=== PATIENT | male | born 1950 | race Caucasian/White ===

== ENCOUNTER 2022-08-04 13:01 | Inpatient (IN) ==
--- NOTE | 2022-08-04 13:29 | Emergency Department Note ---
History of Present Illness General Chief complaint: Fall Stated complaint: FALLS, DISORIENTED Time Seen by Provider: 08/04/22 13:11 History of Present Illness Provider complaint: Fall Onset (ago): unknown 72-year-old male presents emergency department after being found down. Per EMS and nursing staff the patient was found down on the ground. He is unsure when a nd if he fell. Patient appears very confused. Home Medications Medication Instructions Recorded Confirmed Type No Known Home Medications 08/04/22 08/04/22 History Allergies Allergy/AdvReac Type Severity Reaction Status Date / Time No Known Allergies Allergy Verified 08/04/22 15:02 Past Med/Surg History Medical History HTN (hypertension) No pertinent family history Surgical History No pertinent past surgical history Social History Smoking Status: Current every day smoker Tobacco Type: Cigarettes Preferred Language: Maltese Feels Safe at Home: Yes Review of Systems Unobtainable due to cognitive status Physical Exam Vital Signs Vital Signs - 24 hr 08/04/22 12:50 08/04/22 13:15 08/04/22 13:15 Temperature 36.2 C L 36.2 C L Temperature Source Rectal Rectal Pulse Rate 74 77 Pulse Rate [Apical] Pulse Rhythm [Apical] Pulse Strength [Apical] Respiratory Rate 18 16 Respiratory Depth Blood Pressure 210/113 H Blood Pressure [Left Arm] Blood Pressure Mean 145 Blood Pressure Mean [Left Arm] Pulse Oximetry 97 97 Oxygen Delivery Method Room Air Sepsis Recent Fever Within 48 Hours No Sepsis New/Unexplained Change in Mental Status No Sepsis Action Taken by Nursing No Action Required 08/04/22 14:45 08/04/22 15:12 Temperature Temperature Source Pulse Rate Pulse Rate [Apical] 90 112 H Pulse Rhythm [Apical] Irregular Pulse Strength [Apical] Normal Respiratory Rate 16 21 Respiratory Depth Normal Blood Pressure Blood Pressure [Left Arm] 209/107 H 184/100 H Blood Pressure Mean Blood Pressure Mean [Left Arm] 141 128 Pulse Oximetry 93 94 Oxygen Delivery Method Room Air Sepsis Recent Fever Within 48 Hours Sepsis New/Unexplained Change in Mental Status Sepsis Action Taken by Nursing Physical Exam GENERAL: Patient is disheveled dirty and foul-smelling. HENT: Exam performed. - Head: Normocephalic and atraumatic. - Right Ear: External ear normal. No mastoid tenderness. - Left Ear: External ear normal. No mastoid tenderness. - Mouth/Throat: The oropharynx is clear and moist. No trismus in the jaw. No dental abscesses or uvula swelling. No oropharyngeal exudate or tonsillar abscesses. EYES: Conjunctivae and EOM are normal. Pupils are equal, round, and reactive to light. Right eye exhibits no discharge. Left eye exhibits no discharge. No scleral icterus. CV: Normal rate, regular rhythm, normal heart sounds and intact distal pulses. There is no peripheral edema. Palpable radial pulses bue. PULM/CHEST: Rhonchi bilaterally. - Chest Wall: He exhibits no tenderness. ABD: The abdomen is soft. : Several ulcerations over his genitalia. MUSC/SKEL: Pelvis stable. NEURO: GCS eye subscore is 4. GCS verbal subscore is 4. GCS motor subscore is 6. SKIN: Patient is 30. Course Course 1311: The patient was evaluated in room C3. A complete history and physical exam was performed Cardiac monitoring: An order was placed for continuous cardiac monitoring. The monitor shows a rate of 90 with sinus rhythm 1418: Family is now at bedside. They state that the patient fell at 1 AM and 7 AM and has been having difficulty walking. They state he has a history of AL and CABG in [place]. They state he is not taking any of his medications for the last 4 years. 1523: Vital signs stable. Labs are within normal limits with exception of leukocytosis of 15.59. Troponin 36.8. Imaging shows no acute traumatic injury. [facility] his elevated troponin and weakness Administered Medications Discontinued Medications Ioversol (Optiray 350 100ml) 85 ml IV ONCE ONE Stop: 08/04/22 14:28 Last Admin: 08/04/22 14:27 Dose: 85 ml Documented By: PARDEEP Medical Decision Making Laboratory Data Result diagrams: 08/04/22 13:32 08/04/22 13:32 Lab Results 08/04/22 08/04/22 08/04/22 Range/Units 13:32 13:32 13:32 WBC 15.59 H (4.8-10.8) K/ul RBC 4.75 (4.63-6.08) M/uL Hgb 15.0 (14.0-18.0) g/dl POC Hgb (14.0-18.0) g/dl Hct 43.9 (40.1-51.0) % POC Hct (42-52) % MCV 92.4 (80.0-100.0) fL MCH 31.6 (25.0-34.0) pg MCHC 34.2 (32.0-36.0) g/dL RDW Std Deviation 45.7 (36.4-46.3) fL RDW Coeff of Jeanette 13.4 (11.5-14.5) % Plt Count 306 (130-400) K/uL MPV 10.5 (9.4-12.4) fL Immature Gran % (Auto) 0.6 % Neut % (Auto) 76.1 % Lymph % (Auto) 14.8 % [place] % (Auto) 8.0 % Eos % (Auto) 0.1 % Baso % (Auto) 0.4 % Neut # (Auto) 11.86 H (1.4-6.5) K/uL Lymph # (Auto) 2.30 (1.2-3.4) K/uL [place] # (Auto) 1.24 H (0.24-0.82) K/uL Eos # (Auto) 0.02 (0-0.50) K/uL Baso # (Auto) 0.07 (0-0.2) K/uL Immature Gran # (Auto) 0.10 H (0.00-0.02) K/uL POC Sodium (135-144) mmol/L Sodium 141 (136-145) mmol/L POC Potassium (3.3-5.0) mmol/L Potassium 3.8 (3.5-5.1) mmol/L POC Chloride (101-112) mmol/L Chloride 109 H (98-107) mmol/L Carbon Dioxide 21 (21-32) mmol/L POC Total CO2 (24-31) mmol/L Anion Gap 11 (3-11) POC Anion Gap (16-25) mmol/L POC BUN (7-18) mg/dl BUN 21 (6-23) mg/dl Creatinine 0.83 (0.6-1.4) mg/dl POC Creatinine (0.6-1.3) mg/dl Est Cr Clr Drug Dosing 79.0 ml/min Est GFR ( Amer) 102.6 ml/min Est GFR (Non-Af Amer) 88.5 ml/min BUN/Creatinine Ratio 25.3 H (10-20) Glucose 91 (70-99(Fasting)) mg/dl POC Glucose (other) (70-99) mg/dl Lactate 1.8 (0.4-2.0) mmol/L Calcium 9.3 (8.5-10.1) mg/dl POC Ioniz Calcium Mariela (1.12-1.32) mmol/l Magnesium 2.1 (1.7-2.4) mg/dl Total Bilirubin 1.0 (0.2-1.0) mg/dl Direct Bilirubin 0.1 (0-0.2) mg/dl AST 15 (13-39) U/L ALT 7 (7-52) U/L Alkaline Phosphatase 70 (34-104) U/L Total Creatine Kinase 374 H (30-223) U/L Troponin I High Sens 36.8 H (0-20) pg/ml Total Protein 7.2 (6.0-8.3) gm/dl Albumin 4.4 (3.4-5.0) gm/dl Procalcitonin (0-0.5) ng/ml Urine Color Urine Appearance (Clear) Urine pH (4.5-7.5) Ur Specific Burg[place] (1.000-1.030) Urine Protein (Negative) Urine Glucose (UA) (Negative) Urine Ketones (Negative) Urine Blood (Negative) Urine Nitrite (Negative) Urine Bilirubin (Negative) Urine Urobilinogen (Negative) Ur Leukocyte Esterase (Negative) SARS-CoV-2, RNA, NAAT (NEGATIVE) 08/04/22 08/04/22 08/04/22 Range/Units 13:32 13:32 13:41 WBC (4.8-10.8) K/ul RBC (4.63-6.08) M/uL Hgb (14.0-18.0) g/dl POC Hgb 15.6 (14.0-18.0) g/dl Hct (40.1-51.0) % POC Hct 46 (42-52) % MCV (80.0-100.0) fL MCH (25.0-34.0) pg MCHC (32.0-36.0) g/dL RDW Std Deviation (36.4-46.3) fL RDW Coeff of Jeanette (11.5-14.5) % Plt Count (130-400) K/uL MPV (9.4-12.4) fL Immature Gran % (Auto) % Neut % (Auto) % Lymph % (Auto) % [place] % (Auto) % Eos % (Auto) % Baso % (Auto) % Neut # (Auto) (1.4-6.5) K/uL Lymph # (Auto) (1.2-3.4) K/uL [place] # (Auto) (0.24-0.82) K/uL Eos # (Auto) (0-0.50) K/uL Baso # (Auto) (0-0.2) K/uL Immature Gran # (Auto) (0.00-0.02) K/uL POC Sodium 142 (135-144) mmol/L Sodium (136-145) mmol/L POC Potassium 3.7 (3.3-5.0) mmol/L Potassium (3.5-5.1) mmol/L POC Chloride 110 (101-112) mmol/L Chloride (98-107) mmol/L Carbon Dioxide (21-32) mmol/L POC Total CO2 21 L (24-31) mmol/L Anion Gap (3-11) POC Anion Gap 16.0 (16-25) mmol/L POC BUN 23 H (7-18) mg/dl BUN (6-23) mg/dl Creatinine (0.6-1.4) mg/dl POC Creatinine 0.8 (0.6-1.3) mg/dl Est Cr Clr Drug Dosing ml/min Est GFR ( Amer) ml/min Est GFR (Non-Af Amer) ml/min BUN/Creatinine Ratio (10-20) Glucose (70-99(Fasting)) mg/dl POC Glucose (other) 95 (70-99) mg/dl Lactate (0.4-2.0) mmol/L Calcium (8.5-10.1) mg/dl POC Ioniz Calcium Mariela 1.13 (1.12-1.32) mmol/l Magnesium (1.7-2.4) mg/dl Total Bilirubin (0.2-1.0) mg/dl Direct Bilirubin (0-0.2) mg/dl AST (13-39) U/L ALT (7-52) U/L Alkaline Phosphatase (34-104) U/L Total Creatine Kinase (30-223) U/L Troponin I High Sens (0-20) pg/ml Total Protein (6.0-8.3) gm/dl Albumin (3.4-5.0) gm/dl Procalcitonin < 0.05 (0-0.5) ng/ml Urine Color Yellow Urine Appearance Clear (Clear) Urine pH 5.0 (4.5-7.5) Ur Specific [place] 1.022 (1.000-1.030) Urine Protein Negative (Negative) Urine Glucose (UA) Negative (Negative) Urine Ketones 1+ H (Negative) Urine Blood Negative (Negative) Urine Nitrite Negative (Negative) Urine Bilirubin Negative (Negative) Urine Urobilinogen Negative (Negative) Ur Leukocyte Esterase Negative (Negative) SARS-CoV-2, RNA, NAAT (NEGATIVE) 08/04/22 Range/Units 15:07 WBC (4.8-10.8) K/ul RBC (4.63-6.08) M/uL Hgb (14.0-18.0) g/dl POC Hgb (14.0-18.0) g/dl Hct (40.1-51.0) % POC Hct (42-52) % MCV (80.0-100.0) fL MCH (25.0-34.0) pg MCHC (32.0-36.0) g/dL RDW Std Deviation (36.4-46.3) fL RDW Coeff of Jeanette (11.5-14.5) % Plt Count (130-400) K/uL MPV (9.4-12.4) fL Immature Gran % (Auto) % Neut % (Auto) % Lymph % (Auto) % [place] % (Auto) % Eos % (Auto) % Baso % (Auto) % Neut # (Auto) (1.4-6.5) K/uL Lymph # (Auto) (1.2-3.4) K/uL [place] # (Auto) (0.24-0.82) K/uL Eos # (Auto) (0-0.50) K/uL Baso # (Auto) (0-0.2) K/uL Immature Gran # (Auto) (0.00-0.02) K/uL POC Sodium (135-144) mmol/L Sodium (136-145) mmol/L POC Potassium (3.3-5.0) mmol/L Potassium (3.5-5.1) mmol/L POC Chloride (101-112) mmol/L Chloride (98-107) mmol/L Carbon Dioxide (21-32) mmol/L POC Total CO2 (24-31) mmol/L Anion Gap (3-11) POC Anion Gap (16-25) mmol/L POC BUN (7-18) mg/dl BUN (6-23) mg/dl Creatinine (0.6-1.4) mg/dl POC Creatinine (0.6-1.3) mg/dl Est Cr Clr Drug Dosing ml/min Est GFR ( Amer) ml/min Est GFR (Non-Af Amer) ml/min BUN/Creatinine Ratio (10-20) Glucose (70-99(Fasting)) mg/dl POC Glucose (other) (70-99) mg/dl Lactate (0.4-2.0) mmol/L Calcium (8.5-10.1) mg/dl POC Ioniz Calcium Mariela (1.12-1.32) mmol/l Magnesium (1.7-2.4) mg/dl Total Bilirubin (0.2-1.0) mg/dl Direct Bilirubin (0-0.2) mg/dl AST (13-39) U/L ALT (7-52) U/L Alkaline Phosphatase (34-104) U/L Total Creatine Kinase (30-223) U/L Troponin I High Sens (0-20) pg/ml Total Protein (6.0-8.3) gm/dl Albumin (3.4-5.0) gm/dl Procalcitonin (0-0.5) ng/ml Urine Color Urine Appearance (Clear) Urine pH (4.5-7.5) Ur Specific [place] (1.000-1.030) Urine Protein (Negative) Urine Glucose (UA) (Negative) Urine Ketones (Negative) Urine Blood (Negative) Urine Nitrite (Negative) Urine Bilirubin (Negative) Urine Urobilinogen (Negative) Ur Leukocyte Esterase (Negative) SARS-CoV-2, RNA, NAAT NEGATIVE (NEGATIVE) Imaging Data Radiologist's Impression: Abdomen/Pelvis CT 08/04/22 13:15 CT SCAN OF THE ABDOMEN AND PELVIS WITH IV CONTRAST CLINICAL HISTORY: Found down. COMPARISON STUDY: Pelvic radiographs performed the same day 08/04/2022. TECHNIQUE: Following the IV administration of 85 cc of Optiray 350, CT scan of the abdomen and pelvis is performed from the lung bases to the proximal femora. Images are reviewed in the axial, sagittal, and coronal planes. IV contrast was administered without complication. A dose lowering technique was utilized adhering to the principles of ALARA. The examination is compromised by motion artifact. FINDINGS: Lung bases: The patient is status post midline sternotomy. The heart is enlarged and without pericardial effusion. The coronary arteries and ends a calcified. Emphysematous change is suspected. There is an indeterminate 1.8 cm nodular opacity at the left lung base seen on image #4. No airspace consolidation or pleural effusion is identified. There is no basilar pneumothorax. There is a small to moderate hiatal hernia. Liver: The contrast-enhanced liver is normal in size, contour, and attenuation. There is no intrahepatic biliary ductal dilatation. The hepatic veins and portal veins are patent. A 3.0 cm left lobe hepatic lesion on image #10 shows peripheral discontinuous nodular enhancement and although incompletely characterized is typical for a benign hemangioma. Gallbladder: Unremarkable. Spleen: Normal in size and attenuation. Pancreas: Unremarkable. Adrenal glands: Bilateral low-attenuation adrenal nodules measure up to 3.0 cm. These likely represent adenomas but cannot be definitely characterized due to the presence of IV contrast. Kidneys: The contrast enhanced kidneys are normal in size and without hydronephrosis. The kidneys enhance symmetrically. Abdominal vasculature: There is advanced atherosclerotic calcification of the abdominal aorta. A bilobed infrarenal abdominal aortic aneurysm measures up to 3.6 x 4.0 cm (AP x transverse). There is high-grade stenosis of the right common iliac artery seen on image #235. There is focal high-grade stenosis of the left common iliac artery seen on image #250. There is high-grade stenosis at the origin of the common hepatic artery seen on image #88. There is moderate stenosis of the celiac trunk. Bowel: There is moderate colonic diverticulosis without CT evidence of acute diverticulitis. [id number] fecal retention is seen throughout the colon. The appendix is well-visualized and normal. Peritoneum: There is no intraperitoneal free air or abdominal ascites. There is a fat-containing umbilical hernia. Lymphadenopathy: None. Pelvic viscera: The prostate gland is mildly enlarged and heterogeneous. The bladder wall is thickened and trabeculated indicating chronic outlet obstruction. There are small bilateral fat-containing inguinal hernias, left larger than right. Skeletal structures: The skeletal structures are osteopenic. There is moderate lumbosacral spondylosis and mild scoliosis. The lumbosacral spine, bony pelvis, and proximal femora appear intact. No lytic or blastic lesions are seen. IMPRESSION: 1. There is no evidence of solid organ injury in the abdomen or pelvis. 2. There is an indeterminant 1.8 cm nodular opacity at the left lung base. Although this could be on an inflammatory basis, a follow-up chest CT in 1-2 months time is recommended for reassessment as a neoplasm could appear similar. 3. Cardiomegaly and suspect emphysema. 4. Moderate colonic diverticulosis without CT evidence of acute diverticulitis. 5. A bilobed infrarenal abdominal aortic aneurysm measures 3.6 x 4.0 cm. 6. There are foci of high-grade stenosis involving both common iliac arteries 7. Additional findings as above. ACT 112: Positive. There are findings on this exam that require communication between the performing entity and the patient following Patient Test Result Information Act ([place] Act 112) guidelines. Electronically signed by: Levon Padilla M.D. 08/04/2022 2:59 PM Chest X-Ray 08/04/22 13:15 SINGLE VIEW CHEST CLINICAL HISTORY: Fall. FINDINGS: An AP, portable, upright chest radiograph is compared to study dated 11/16/2011. The examination is degraded by portable technique and patient rotation. The patient is status post midline sternotomy. The heart is enlarged noting atherosclerotic calcification of the thoracic aorta. There is mild pulmonary vascular congestion. Chronic interstitial thickening similar to previous. Scarring/atelectasis is noted the lung bases. The lungs and pleural spaces are otherwise clear. No pneumothorax is seen. The skeletal structures are osteopenic. The bony thorax is grossly intact. IMPRESSION: 1. Cardiomegaly with mild pulmonary vascular congestion. 2. No airspace consolidation or large pleural effusion is identified. ACT 112: Negative or not required by law. Electronically signed by: Levon Padilla M.D. 08/04/2022 2:[address] 08/04/22 13:16 CT SCAN OF THE CERVICAL SPINE CLINICAL HISTORY: Found down. COMPARISON STUDY: No priors. TECHNIQUE: CT scan of the cervical spine is performed from the skull base to the upper thoracic spine. Images are reviewed in the axial, sagittal, and coronal planes. IV contrast was not administered for this examination. A dose lowering technique was utilized adhering to the principles of ALARA. FINDINGS: Skeletal structures: The skeletal structures are osteopenic. There is no evidence of fracture or subluxation involving the cervical spine. Vertebral body height is maintained. There is minimal anterolisthesis at C7-T1 and T1-T2. Alignment otherwise maintained. There is straightening of the cervical lordosis. Anterior osteophytes are seen throughout. The odontoid process and lateral masses are intact. The atlantoaxial articulation is preserved noting advanced productive degenerative changes. The spinous processes appear intact. There is moderate to advanced multilevel cervical spondylosis. Uncovertebral and facet arthropathy contribute to neural foraminal narrowing at most levels. Intervertebral discs: There is moderate to severe disc space narrowing at all cervical levels between C3-C4 and C6-C7. Central canal: Posterior disc osteophyte complexes are seen at all cervical levels between C3-C4 and C6-C7. This likely contributes to multilevel acquired compromise of the central canal. Soft tissues: The prevertebral and paraspinous soft tissues are within normal limits. There is atherosclerotic calcification of the carotid bulbs. Calvarium: The visualized calvarium at the skull base appears intact. Brain parenchyma: Partially visualized brain parenchyma at the skull base is within normal limits. Sinuses and mastoids: The visualized paranasal sinuses are clear. The mastoid air cells are well pneumatized. Lung apices: Clear as visualized. IMPRESSION: 1. There is no evidence of fracture or subluxation involving the cervical spine. 2. Osteopenia and spondylotic change as above. ACT 112: Negative or not required by law. Electronically signed by: Levon Padilla M.D. 08/04/2022 2:[address] 08/04/22 13:16 CT SCAN OF THE BRAIN WITHOUT IV CONTRAST CLINICAL HISTORY: Found down. COMPARISON STUDY: No priors. TECHNIQUE: Unenhanced axial CT scan of the brain is performed from the vertex to the skull base. A dose lowering technique was utilized adhering to the principles of ALARA. CT DOSE: 1219.08 mGy.cm FINDINGS: Brain parenchyma: There is age-related involutional change noting moderate subcortical and periventricular microangiopathic disease. There is no hemorrhage, mass effect, or evidence of acute territorial ischemia by CT criteria. Chronic lacunar infarcts are noted in the right caudate head, the left basal ganglia, the left colby radiata, and both thalami. Prieto-white matter differentiation is preserved. No extra-axial fluid collection is seen. Ventricles, sulci, cisterns: Prominent secondary to involutional change. Intracranial vasculature: There is atherosclerotic calcification of the cavernous carotid and vertebral arteries. Calvarium: Unremarkable. Sinuses and mastoids: The visualized paranasal sinuses are clear. The mastoid air cells are well pneumatized. Orbits: The bony orbits are grossly intact. IMPRESSION: There is no hemorrhage, mass effect, or evidence of acute territorial ischemia by CT criteria. ACT 112: Negative or not required by law. Electronically signed by: Levon Padilla M.D. 08/04/2022 2:42 PM Pelvis X-Ray 08/04/22 13:16 SINGLE VIEW PELVIS CLINICAL HISTORY: Fall. FINDINGS: 2 AP, portable, supine pelvic radiograph is obtained. No prior studies are available for comparison at the time of dictation. The skeletal structures are osteopenic. There is no radiographic evidence of acute fracture involving the hips or bony pelvis. Moderate degenerative joint space narrowing is seen in the hips. There is mild degenerative sclerosis of the sacroiliac joints. Lumbosacral spondylosis is partially visualized. There is atherosclerotic calcification of the iliac and femoral arteries. No bowel obstruction is seen. IMPRESSION: No acute bony abnormality is identified. Electronically signed by: Levon Padilla M.D. 08/04/2022 3:00 PM ECG Data Indication: + weakness Rate (beats per minute): 91 Rhythm: + atrial fibrillation ECG ST segments: + Normal ST segments Additional Comments: Baseline artifact. [facility] [place] Narrative 1311: The patient was evaluated in room C3. A complete history and physical exam was performed Cardiac monitoring: An order was placed for continuous cardiac monitoring. The monitor shows a rate of 90 with sinus rhythm 1418: Family is now at bedside. They state that the patient fell at 1 AM and 7 AM and has been having difficulty walking. They state he has a history of AL and CABG in [place]. They state he is not taking any of his medications for the last 4 years. 1523: Vital signs stable. Labs are within normal limits with exception of leukocytosis of 15.59. Troponin 36.8. Imaging shows no acute traumatic injury. [facility] his elevated troponin and weakness Impression & Plan Recurrent falls, Elevated troponin Discharge Plan Visit Data Chief Complaint: Fall Stated Complaint: FALLS, DISORIENTED ED Provider: Puneet Alegre Discharge Problem: Recurrent falls, Elevated troponin Patient Disposition: Admitted As Inpatient Forms Stand Alone Forms: [facility] Prescriptions Prescriptions: No Action No Known Home Medications Referrals Referrals: [place] [facility] [Non-Staff] -
[2022-08-04 13:48] LABS: Basophils # (auto) 0.07 K/uL (0-0.2); Basophils % (auto) 0.4 %; Eosinophils # (auto) 0.02 K/uL (0-0.50); Eosinophils % (auto) 0.1 %; Hematocrit (blood only) 43.9 % (40.1-51.0); Immature Granulocytes % (auto) 0.6 %; Lymphocytes % (auto) 14.8 %; Mean Corpuscular Hemoglobin 31.6 pg (25.0-34.0); Mean Corpuscular Hgb Conc 34.2 g/dL (32.0-36.0); Mean Corpuscular Volume 92.4 fL (80.0-100.0); Mean Platelet Volume 10.5 fL (9.4-12.4); Monocytes # (auto) 1.24 K/uL (0.24-0.82); Neutrophils # (auto) 11.86 K/uL (1.4-6.5); Neutrophils % (auto) 76.1 %; Platelet Count 306 K/uL (130-400); RDW Coefficient of Variation 13.4 % (11.5-14.5); RDW Standard Deviation 45.7 fL (36.4-46.3); Red Blood Count 4.75 M/uL (4.63-6.08); White Blood Count 15.59 K/ul (4.8-10.8)
[2022-08-04 13:53] LABS: Appearance Urine Clear (Clear); Bilirubin Urine Negative (Negative); Blood Urine Negative (Negative); Color Urine Yellow; Glucose Urine UA Negative (Negative); Ketones Urine 1+ (Negative); Leukocyte Esterase Urine Negative (Negative); Nitrite Urine Negative (Negative); Protein Urine Negative (Negative); Specific Gravity Urine 1.022 (1.000-1.030); Urobilinogen Urine Negative (Negative)
[2022-08-04 13:59] LABS: iSTAT Creatinine 0.8 mg/dl (0.6-1.3); iSTAT Hemoglobin 15.6 g/dl (14.0-18.0); iSTAT Ionized Calcium 1.13 mmol/l (1.12-1.32); iSTAT Potassium 3.7 mmol/L (3.3-5.0)
[2022-08-04 14:09] LABS: Albumin Level 4.4 gm/dl (3.4-5.0); BUN Creatinine Ratio 25.3 (10-20); Bilirubin Direct 0.1 mg/dl (0-0.2); Calcium 9.3 mg/dl (8.5-10.1); Est GFR (African American) 102.6 ml/min; Est GFR (Non-African American) 88.5 ml/min; Magnesium 2.1 mg/dl (1.7-2.4); Potassium 3.8 mmol/L (3.5-5.1); Total Protein 7.2 gm/dl (6.0-8.3)
--- NOTE | 2022-08-04 14:10 | XRay Report ---
SINGLE VIEW CHEST CLINICAL HISTORY: Fall. FINDINGS: An AP, portable, upright chest radiograph is compared to study dated 11/16/2011. The examinat ion is degraded by portable technique and patient rotation. The patient is status post midline craig otomy. The heart is enlarged noting atherosclerotic calcification of the thoracic aorta. There is mil d pulmonary vascular congestion. Chronic interstitial thickening similar to previous. Scarring/atelec tasis is noted the lung bases. The lungs and pleural spaces are otherwise clear. No pneumothorax is s een. The skeletal structures are osteopenic. The bony thorax is grossly intact. IMPRESSION: 1. Cardiomegaly with mild pulmonary vascular congestion. 2. No airspace consolidation or large pleural effusion is identified. ACT 112: Negative or not required by law. Electronically signed by: Levon Padilla M.D. 08/04/2022 2:08 PM
[2022-08-04 14:15] LABS: Troponin I High Sensitivity 36.8 pg/ml (0-20)
[2022-08-04] MEDS ORDERED: OPTIRAY 350 100ml IV ONE (14:27)
--- NOTE | 2022-08-04 14:44 | CT Scan Report ---
CT SCAN OF THE BRAIN WITHOUT IV CONTRAST CLINICAL HISTORY: Found down. COMPARISON STUDY: No priors. TECHNIQUE: Unenhanced axial CT scan of the brain is performed from the vertex to the skull base. A do se lowering technique was utilized adhering to the principles of ALARA. CT DOSE: 1219.08 mGy.cm FINDINGS: Brain parenchyma: There is age-related involutional change noting moderate subcortical and periventri cular microangiopathic disease. There is no hemorrhage, mass effect, or evidence of acute territorial ischemia by CT criteria. Chronic lacunar infarcts are noted in the right caudate head, the left basa l ganglia, the left colby radiata, and both thalami. Prieto-white matter differentiation is preserved. No extra-axial fluid collection is seen. Ventricles, sulci, cisterns: Prominent secondary to involutional change. Intracranial vasculature: There is atherosclerotic calcification of the cavernous carotid and vertebr al arteries. Calvarium: Unremarkable. Sinuses and mastoids: The visualized paranasal sinuses are clear. The mastoid air cells are well pneu matized. Orbits: The bony orbits are grossly intact. IMPRESSION: There is no hemorrhage, mass effect, or evidence of acute territorial ischemia by CT lonny hernandez. ACT 112: Negative or not required by law. Electronically signed by: Levon Padilla M.D. 08/04/2022 2:42 PM
--- NOTE | 2022-08-04 14:51 | CT Scan Report ---
CT SCAN OF THE CERVICAL SPINE CLINICAL HISTORY: Found down. COMPARISON STUDY: No priors. TECHNIQUE: CT scan of the cervical spine is performed from the skull base to the upper thoracic spine . Images are reviewed in the axial, sagittal, and coronal planes. IV contrast was not administered fo r this examination. A dose lowering technique was utilized adhering to the principles of ALARA. FINDINGS: Skeletal structures: The skeletal structures are osteopenic. There is no evidence of fracture or subl uxation involving the cervical spine. Vertebral body height is maintained. There is minimal anteroli sthesis at C7-T1 and T1-T2. Alignment otherwise maintained. There is straightening of the cervical lo rdosis. Anterior osteophytes are seen throughout. The odontoid process and lateral masses are intact. The atlantoaxial articulation is preserved noting advanced productive degenerative changes. The spin ous processes appear intact. There is moderate to advanced multilevel cervical spondylosis. Uncoverte bral and facet arthropathy contribute to neural foraminal narrowing at most levels. Intervertebral discs: There is moderate to severe disc space narrowing at all cervical levels between C3-C4 and C6-C7. Central canal: Posterior disc osteophyte complexes are seen at all cervical levels between C3-C4 and C6-C7. This likely contributes to multilevel acquired compromise of the central canal. Soft tissues: The prevertebral and paraspinous soft tissues are within normal limits. There is athero sclerotic calcification of the carotid bulbs. Calvarium: The visualized calvarium at the skull base appears intact. Brain parenchyma: Partially visualized brain parenchyma at the skull base is within normal limits. Sinuses and mastoids: The visualized paranasal sinuses are clear. The mastoid air cells are well pneu matized. Lung apices: Clear as visualized. IMPRESSION: 1. There is no evidence of fracture or subluxation involving the cervical spine. 2. Osteopenia and spondylotic change as above. ACT 112: Negative or not required by law. Electronically signed by: Levon Padilla M.D. 08/04/2022 2:48 PM
--- NOTE | 2022-08-04 15:01 | CT Scan Report ---
CT SCAN OF THE ABDOMEN AND PELVIS WITH IV CONTRAST CLINICAL HISTORY: Found down. COMPARISON STUDY: Pelvic radiographs performed the same day 08/04/2022. TECHNIQUE: Following the IV administration of 85 cc of Optiray 350, CT scan of the abdomen and pelvi s is performed from the lung bases to the proximal femora. Images are reviewed in the axial, sagittal , and coronal planes. IV contrast was administered without complication. A dose lowering technique wa s utilized adhering to the principles of ALARA. The examination is compromised by motion artifact. FINDINGS: Lung bases: The patient is status post midline sternotomy. The heart is enlarged and without pericard ial effusion. The coronary arteries and ends a calcified. Emphysematous change is suspected. There is an indeterminate 1.8 cm nodular opacity at the left lung base seen on image #4. No airspace consolid ation or pleural effusion is identified. There is no basilar pneumothorax. There is a small to modera te hiatal hernia. Liver: The contrast-enhanced liver is normal in size, contour, and attenuation. There is no intrahepa tic biliary ductal dilatation. The hepatic veins and portal veins are patent. A 3.0 cm left lobe hepa tic lesion on image #10 shows peripheral discontinuous nodular enhancement and although incompletely characterized is typical for a benign hemangioma. Gallbladder: Unremarkable. Spleen: Normal in size and attenuation. Pancreas: Unremarkable. Adrenal glands: Bilateral low-attenuation adrenal nodules measure up to 3.0 cm. These likely represen t adenomas but cannot be definitely characterized due to the presence of IV contrast. Kidneys: The contrast enhanced kidneys are normal in size and without hydronephrosis. The kidneys enh ance symmetrically. Abdominal vasculature: There is advanced atherosclerotic calcification of the abdominal aorta. A bilo bed infrarenal abdominal aortic aneurysm measures up to 3.6 x 4.0 cm (AP x transverse). There is high -grade stenosis of the right common iliac artery seen on image #235. There is focal high-grade stenos is of the left common iliac artery seen on image #250. There is high-grade stenosis at the origin of the common hepatic artery seen on image #88. There is moderate stenosis of the celiac trunk. Bowel: There is moderate colonic diverticulosis without CT evidence of acute diverticulitis. Mild-to- moderate fecal retention is seen throughout the colon. The appendix is well-visualized and normal. Peritoneum: There is no intraperitoneal free air or abdominal ascites. There is a fat-containing umbi lical hernia. Lymphadenopathy: None. Pelvic viscera: The prostate gland is mildly enlarged and heterogeneous. The bladder wall is thickene d and trabeculated indicating chronic outlet obstruction. There are small bilateral fat-containing in guinal hernias, left larger than right. Skeletal structures: The skeletal structures are osteopenic. There is moderate lumbosacral spondylosi s and mild scoliosis. The lumbosacral spine, bony pelvis, and proximal femora appear intact. No lytic or blastic lesions are seen. IMPRESSION: 1. There is no evidence of solid organ injury in the abdomen or pelvis. 2. There is an indeterminant 1.8 cm nodular opacity at the left lung base. Although this could be on an inflammatory basis, a follow-up chest CT in 1-2 months time is recommended for reassessment as a n eoplasm could appear similar. 3. Cardiomegaly and suspect emphysema. 4. Moderate colonic diverticulosis without CT evidence of acute diverticulitis. 5. A bilobed infrarenal abdominal aortic aneurysm measures 3.6 x 4.0 cm. 6. There are foci of high-grade stenosis involving both common iliac arteries 7. Additional findings as above. ACT 112: Positive. There are findings on this exam that require communication between the performing entity and the patient following Patient Test Result Information Act ([place] Act 112) guidelines. Electronically signed by: Levon Padilla M.D. 08/04/2022 2:59 PM
--- NOTE | 2022-08-04 15:01 | XRay Report ---
SINGLE VIEW PELVIS CLINICAL HISTORY: Fall. FINDINGS: 2 AP, portable, supine pelvic radiograph is obtained. No prior studies are available for co mparison at the time of dictation. The skeletal structures are osteopenic. There is no radiographic e vidence of acute fracture involving the hips or bony pelvis. Moderate degenerative joint space narrow ing is seen in the hips. There is mild degenerative sclerosis of the sacroiliac joints. Lumbosacral s pondylosis is partially visualized. There is atherosclerotic calcification of the iliac and femoral a rteries. No bowel obstruction is seen. IMPRESSION: No acute bony abnormality is identified. Electronically signed by: Levon Padilla M.D. 08/04/2022 3:00 PM
[2022-08-04] MEDS ORDERED: FUROSEMIDE 40 MG/4 ML VIAL IV ONE (15:59)
[2022-08-04] MEDS ORDERED: LABETALOL HCL IV 5 MG/ML 20ML IV STA (16:00)
[2022-08-04] MEDS ORDERED: Heparin IV Adult Wt-Based Low-Dose WITH Bolus Protocol IV SCH (16:07)
[2022-08-04] MEDS ORDERED: HEPARIN SODIUM/DEXTROSE 25,000 UNITS/500 ML BAG IV SCH (16:15)
--- NOTE | 2022-08-04 16:15 | History & Physical Report ---
Date of Service August 04, 2022 Assessment & Plan (1) Recurrent falls: Plan: Has been complaining of weakness for a while Worse since Monday last with falls x2 this morning without any significant injury No signs and/or symptoms of stroke CT scan of the head is negative No fractures identified We will get PT and OT evaluation Possible atrial fibrillation has been ruled out Patient is started on intravenous heparin which has been discontinued subsequently An irregular cardiac rhythm noted on presentation, initially felt to be atrial fibrillation. Per my personal review of the EKG and his telemetry, I believe the patient has had sinus rhythm with frequent supraventricular and ventricular ectopy. (2) Hypertensive urgency: Plan: Known to have high blood pressure but not been taking any medication for the last 4 years Blood pressure is very high in the emergency room Will give intravenous labetalol and also beta-yaya (3) CAD (coronary artery disease) of bypass graft: Plan: History of CAD status post bypass Troponin is mildly elevated and will cycle troponin Doubt any ACS for now Elevated troponin could be due to a strained and CHF (4) CHF (congestive heart failure): Plan: Chest x-ray showed mild congestion Examination is typical for CHF with bilateral crackles more on the right side Doubt any infection Will give Lasix and monitor intake output (5) Elevated troponin: Plan: Troponin is mildly elevated Will cycle troponin History of Present Illness Chief Complaint: Progressive weakness, or since Monday with falls x2 this morning. Shortness of breath with exertion Primary Care Provider: PCP NO He is a 72-year-old male with significant past medical history of CAD status post CABG years before and also hypertension has not been to a doctor for the last 4 years. Apparently has been complaining of progressive weakness for a while and the weakness seems to be worse since Monday last. He has had falls x2 at home due to weakness but denies any pain, numbness or tingling involving any of the extremities, any weakness involving any side of the body or any recent fever and or chills. He did complain to have some shortness of breath on exertion without any cough and/or phlegm. Denies any palpitation or chest pain. Did not have any swelling of the legs but has been having occasional incontinence of urine. The family members noted to have possible confusion as well. In the ER he was noted to have very high blood pressure with systolic more than 200 with increased heart rate more than 110 and in atrial fibrillation. Chest x-ray is compatible with mild congestion but no source of infection. He was admitted to telemetry unit for continuation of care. Allergies Allergy/AdvReac Type Severity Reaction Status Date / Time No Known Allergies Allergy Verified 08/04/22 15:02 Home Medications Medication Instructions Recorded Confirmed Type No Known Home Medications 08/04/22 08/04/22 History Past Med/Surg History Medical History HTN (hypertension) No pertinent family history Surgical History No pertinent past surgical history Social History Smoking Status: Current every day smoker Tobacco Type: Cigarettes Cigarettes Per Day: 5; Tobacco Cessation Education Requested by Patient: No Hx Alcohol Use: No Hx Substance Use: Yes Last Used Substance: Days (ago) Preferred Language: Indonesian Communication Ability: Effective Geological Drafter Required: No Beliefs That Will Affect Care: None Current Living Situation: Spouse Other Information That Helps Us Care for You: No Feels Safe at Home: Yes Safety Concerns: Feels Safe At This Time Assistive Devices: Cane and Glasses Review of Systems Review of Systems: All systems reviewed & are unremarkable except as noted in HPI & below Physical Exam Physical Exam: Lying in bed with minimal shortness of breath Constitutional: + ill appearing and average body habitus Eyes: PERRL, conjunctivae normal, anicteric sclerae ENMT: external ear and nose normal, oropharynx normal Neck: trachea midline, no thyromegaly Respiratory: + respiratory distress (Minimal to mild shortness of breath at rest) Auscultation: + diminished lung sounds and + crackles (Coarse crackles bilaterally mostly on the right side) Cardiovascular: Rate/Rhythm: + tachycardic and + irregularly irregular Heart Sounds: normal S1, normal S2 and + murmur (2/6 over precordium) Extremities: no edema Gastrointestinal (Abdomen): Inspection/Auscultation: normal bowel sounds; abdomen not distended Percussion/Palpation: abdomen soft; abdomen nontender Musculoskeletal: No acute arthritis in any joint Neurologic: Alert, awake and oriented x3. Generally weak but no focal sensory or motor deficit appreciated Lymphatic: no cervical or axillary lymphadenopathy Results & Data Results & Data ([facility]) Vital Signs (Past 12 Hours) Vital Signs Temp Pulse Pulse Resp BP BP Pulse Ox 08/04/22 16:00 117 H 21 91 08/04/22 16:00 211/88 H 08/04/22 15:50 101 H 22 90 08/04/22 15:40 113 H 21 91 08/04/22 15:32 91 H 22 93 08/04/22 15:32 185/125 H 08/04/22 15:30 97 H 19 91 08/04/22 15:20 86 20 93 08/04/22 15:10 100 H 22 94 08/04/22 15:10 187/100 H 08/04/22 15:00 111 H 23 08/04/22 14:50 93 H 23 94 08/04/22 14:40 94 H 21 93 08/04/22 14:30 96 08/04/22 14:30 208/107 H 08/04/22 14:10 93 H 22 95 08/04/22 14:00 100 H 24 90 08/04/22 13:50 103 H 22 95 08/04/22 13:45 104 H 21 95 08/04/22 15:15 116 H 20 211/86 H 96 08/04/22 15:12 112 H 21 184/100 H 94 08/04/22 14:45 90 16 209/107 H 93 08/04/22 13:15 36.2 C L 08/04/22 13:15 77 16 97 08/04/22 12:50 36.2 C L 74 18 210/113 H 97 O2 Del Method 08/04/22 16:00 08/04/22 16:00 08/04/22 15:50 08/04/22 15:40 08/04/22 15:32 08/04/22 15:32 08/04/22 15:30 08/04/22 15:20 08/04/22 15:10 08/04/22 15:10 08/04/22 15:00 08/04/22 14:50 08/04/22 14:40 08/04/22 14:30 08/04/22 14:30 08/04/22 14:10 08/04/22 14:00 08/04/22 13:50 08/04/22 13:45 08/04/22 15:15 Room Air 08/04/22 15:12 Room Air 08/04/22 14:45 08/04/22 13:15 08/04/22 13:15 Room Air 08/04/22 12:50 Laboratory Results Short CBC 08/04/22 Range/Units 13:32 WBC 15.59 H (4.8-10.8) K/ul Hgb 15.0 (14.0-18.0) g/dl Hct 43.9 (40.1-51.0) % Plt Count 306 (130-400) K/uL BMP 08/04/22 13:32 Sodium 141 Potassium 3.8 Chloride 109 H Carbon Dioxide 21 BUN 21 Creatinine 0.83 Glucose 91 Calcium 9.3 Cardiac Enzymes 08/04/22 Range/Units 13:32 Total Creatine Kinase 374 H (30-223) U/L Liver Function 08/04/22 Range/Units 13:32 Total Bilirubin 1.0 (0.2-1.0) mg/dl Direct Bilirubin 0.1 (0-0.2) mg/dl AST 15 (13-39) U/L ALT 7 (7-52) U/L Alkaline Phosphatase 70 (34-104) U/L Albumin 4.4 (3.4-5.0) gm/dl Urine 08/04/22 Range/Units 13:32 Urine Color Yellow Urine Appearance Clear (Clear) Urine pH 5.0 (4.5-7.5) Ur Specific Lucan 1.022 (1.000-1.030) Urine Protein Negative (Negative) Urine Glucose (UA) Negative (Negative) Medications Administered Current Inpatient Medications Heparin Sodium (Porcine) (Heparin Sod (Porcine) 1000 Unit/Ml) 1 units IV NOW ONE Stop: 08/04/22 16:13 Heparin Sodium/Dextrose (Heparin Iv Adult Wt-Based Low-Dose With Bolus Protocol) 1 each IV Q15M NORBERTO; Protocol Stop: 09/03/22 16:06 Heparin Sodium/Dextrose (Heparin Sodium/Dextrose) 25,000 units in 500 mls @ 0.02 mls/hr IV .Q24H NORBERTO; Protocol Stop: 09/03/22 16:14 Metoprolol Tartrate (Metoprolol Tartrate 1 Mg/Ml Vial) 5 mg IV Q6 NORBERTO Stop: 09/03/22 17:59 Code Status & VTE Plan VTE Prophylaxis Plan VTE Prophylaxis will be ordered: Yes
[2022-08-04] MEDS ORDERED: cefTRIAXone SODIUM 1,000 MG/50 ML BAG IV STA (16:58)
[2022-08-04 17:16] LABS: INR 1.1 (0.9-1.1); Partial Thromboplastin Ratio 0.9; Partial Thromboplastin Time 26.1 Seconds (21.0-31.0); Prothrombin Time 11.4 Seconds (9.0-12.0)
[2022-08-04] MEDS ORDERED: HEPARIN 25000 UNIT/500 ML D5W IV ONE (17:56)
[2022-08-04] MEDS ORDERED: HEPARIN SOD (PORCINE) 1000 UNIT/ML IV ONE (18:15)
[2022-08-04] MEDS: METOPROLOL TARTRATE 1 MG/ML VIAL IV SCH (18:23)
[2022-08-04] MEDS ORDERED: INFLUENZA VACCINE HIGH DOSE PF 65+ 0.7 ML SYR IM ONE (18:41)
[2022-08-05] MEDS: METOPROLOL TARTRATE 1 MG/ML VIAL IV SCH ×3 (00:11→23:54)
[2022-08-05 00:50] LABS: Partial Thromboplastin Ratio 1.8
[2022-08-05 00:59] LABS: Partial Thromboplastin Time 49.8 Seconds (21.0-31.0)
[2022-08-05 07:21] LABS: BUN Creatinine Ratio 19.6 (10-20); Calcium 9.5 mg/dl (8.5-10.1); Creatinine Clr Calc Pharmacy 64.9 ml/min; Est GFR (African American) 90.7 ml/min; Est GFR (Non-African American) 78.2 ml/min; Magnesium 2.1 mg/dl (1.7-2.4); Potassium 3.6 mmol/L (3.5-5.1)
[2022-08-05 07:39] LABS: Partial Thromboplastin Ratio 1.6; Partial Thromboplastin Time 43.7 Seconds (21.0-31.0)
[2022-08-05 08:15] LABS: Basophils # (auto) 0.05 K/uL (0-0.2); Basophils % (auto) 0.2 %; Hemoglobin 15.8 g/dl (14.0-18.0); Immature Granulocytes # (auto) 0.16 K/uL (0.00-0.02); Immature Granulocytes % (auto) 0.7 %; Lymphocytes # (auto) 2.03 K/uL (1.2-3.4); Lymphocytes % (auto) 8.4 %; Mean Corpuscular Hemoglobin 31.3 pg (25.0-34.0); Mean Corpuscular Hgb Conc 34.3 g/dL (32.0-36.0); Mean Corpuscular Volume 91.1 fL (80.0-100.0); Mean Platelet Volume 10.5 fL (9.4-12.4); Monocytes # (auto) 2.13 K/uL (0.24-0.82); Monocytes % (auto) 8.8 %; Neutrophils # (auto) 19.94 K/uL (1.4-6.5); Neutrophils % (auto) 81.9 %; Platelet Count 340 K/uL (130-400); RDW Coefficient of Variation 13.7 % (11.5-14.5); RDW Standard Deviation 45.3 fL (36.4-46.3); Red Blood Count 5.05 M/uL (4.63-6.08); White Blood Count 24.31 K/ul (4.8-10.8)
[2022-08-05] MEDS ORDERED: LABETALOL HCL IV 5 MG/ML 20ML IV STA (08:47)
--- NOTE | 2022-08-05 10:02 | Electrocardiogram Report ---
Test Reason : Blood Pressure : / mmHG Vent. Rate : 091 BPM Atrial Rate : 091 BPM P-R Int : 000 ms QRS Dur : 086 ms QT Int : 378 ms P-R-T Axes : 000 006 173 degrees QTc Int : 464 ms Poor data quality, interpretation may be adversely affected Sinus rhythm with frequent Premature atrial complexes ST depression in Anterolateral leads , consider ischemia Abnormal ECG When compared with ECG of 16-NOV-2011 11:50, ST depression in Anterolateral leads now present Premature atrial complexes now present Confirmed by Prakash Pennington ([id number]) on 08/05/2022 10:02:06 AM Referred By: SELF Confirmed By:Prakash Pennington
[2022-08-05] MEDS: lisinopril 5 MG TAB PO SCH (11:17)
[2022-08-05] MEDS ORDERED: LABETALOL HCL IV 5 MG/ML 20ML IV ONE (11:22)
--- NOTE | 2022-08-05 12:06 | Cardiology Consultation ---
Date of Consultation August 05, 2022 Assessment & Plan (1) Hypertensive urgency: (2) AAA (abdominal aortic aneurysm): (3) CAD (coronary artery disease) of bypass graft: (4) Left ventricular systolic dysfunction: Patient presents with falls, somnolence. An irregular cardiac rhythm noted on presentation, initially felt to be atrial fibrillation. Per my personal review of the EKG and his telemetry, I believe the patient has had sinus rhythm with frequent supraventricular and ventricular ectopy. His troponin is mildly elevated, with a flat trend. Echocardiogram reveals severe left ventricular systolic dysfunction. Is unclear if the patient has been taking his cardiac medications recently or even for years. His last cardiology follow-up was in 2011 with prescriptions provided at that time. Patient has had a CT of the head without acute intracranial abnormality. At this time, if patient is able to take oral medications, will start aspirin, metoprolol, continue lisinopril. I have discontinued his unfractioned heparin infusion, as at present it does not appear that he has atrial fibrillation. Repeat EKG requested. I do not think his troponin elevation is suggestive of an acute coronary syndrome at present. Will change IV metoprolol to a PRN if he is able to take pills. Leukocytosis noted. Defer work-up to hospitalist service. Start Lovenox for DVT prophylaxis since unfractioned heparin infusion to be discontinued. History of Present Illness Attending Physician: Matt Rodriguez MD History of Present Illness Attila Chin is a 72 year old male seen in cardiology consultation per the request of Dr Rodriguez for the evaluation of atrial fibrillation. The patient presented to the emergency department yesterday having been found at home fall and unknown downtime. He has apparently had several falls at home. Initial vital signs included a blood pressure of 210/113 mmHg. patient was observed to have an irregular cardiac rhythm on telemetry and EKG. At the time my assessment, the patient is lying comfortably in room 218. He is on an heparin infusion. He is lethargic. And opens up his eyes, and wiggles his toes and moves his hands on commands, but does not provide any history or subjective input with regards to his interview. The patient's cardiac history dates back to 2011 when he presented to the [facility] with complaints of chest discomfort and exertional shortness of breath of 3 months duration. He was diagnosed with a non-ST segment elevation myocardial infarction and underwent cardiac catheterization revealing a 100% occlusion of the proximal LAD with left to left collaterals from the circumflex coronary artery, no significant obstructive disease was noted in the circumflex obtuse marginal system, and a 90% right coronary artery stenosis was present. The patient went on to have off-pump CABG x2 performed 11/18/2011 receiving BRENNAN to LAD, and SVG to PDA, performed by Dr. Crawford. Per the operative report, his preoperative/intraoperative ejection fraction was rated as being 25%. He was seen twice in outpatient cardiology follow-up after that, in [address] Aguero. The patient did not keep the scheduled follow-up in 2012 and has been lost in follow-up in the interim. An outpatient echocardiogram performed postoperatively in 2011 revealed mild global left ventricular hypokinesis with ejection fraction in the range of 40 to 45% at that time. Allergies Allergy/AdvReac Type Severity Reaction Status Date / Time No Known Allergies Allergy Verified 08/04/22 15:02 Home Medications Medication Instructions Recorded Confirmed Type No Known Home Medications 08/04/22 08/04/22 History Patient History Medical History HTN (hypertension) No pertinent family history Surgical History No pertinent past surgical history Social History Smoking Status: Current every day smoker Tobacco Type: Cigarettes Cigarettes Per Day: 5; Tobacco Cessation Education Requested by Patient: No Hx Alcohol Use: No Hx Substance Use: Yes Last Used Substance: Days (ago) Preferred Language: [place] Sudanese Communication Ability: Effective Visual Merchandising Manager Required: No Beliefs That Will Affect Care: None Current Living Situation: Spouse Other Information That Helps Us Care for You: No Feels Safe at Home: Yes Safety Concerns: Feels Safe At This Time Assistive Devices: Cane and Glasses Review of Systems Review of Systems: Unobtainable due to reduced consciousness Physical Exam Constitutional: + ill appearing and + thin Respiratory: normal respiratory effort, lungs clear to auscultation Cardiovascular: Rate/Rhythm: + irregularly irregular Heart Sounds: no murmur Vessels: no JVD Extremities: no edema Gastrointestinal (Abdomen): normal bowel sounds, soft, nontender, no hepatosplenomegaly Neurologic: Somnolent, moves extremities on commands. Results & Data ([facility]) Vital Signs (Past 12 Hours) Vital Signs Temp Pulse Pulse Resp BP BP Pulse Ox 08/05/22 11:07 37.1 C 72 18 154/83 H 92 08/05/22 07:58 08/05/22 07:01 36.9 C 80 19 193/91 H 94 08/05/22 06:11 85 179/92 H 08/05/22 02:40 36.7 C 85 18 179/92 H 97 08/05/22 00:27 88 08/05/22 00:11 72 175/89 H O2 Del Method 08/05/22 11:07 Room Air 08/05/22 07:58 Room Air 08/05/22 07:01 Room Air 08/05/22 06:11 08/05/22 02:40 Room Air 08/05/22 00:27 08/05/22 00:11 Laboratory Results Cardiac Enzymes 08/04/22 08/04/22 08/05/22 Range/Units 13:32 19:37 00:08 AST 15 (13-39) U/L Troponin I High Sens 36.8 H 54.3 H* D 44.8 H (0-20) pg/ml Coagulation 08/04/22 08/05/22 08/05/22 Range/Units 16:30 00:08 06:40 PT 11.4 (9.0-12.0) Seconds APTT 26.1 49.8 H* 43.7 H (21.0-31.0) Seconds CBC 08/04/22 08/05/22 Range/Units 13:32 06:40 WBC 15.59 H 24.31 H D (4.8-10.8) K/ul RBC 4.75 5.05 (4.63-6.08) M/uL Hgb 15.0 15.8 (14.0-18.0) g/dl Hct 43.9 46.0 (40.1-51.0) % Plt Count 306 340 (130-400) K/uL Neut # (Auto) 11.86 H 19.94 H (1.4-6.5) K/uL Lymph # (Auto) 2.30 2.03 (1.2-3.4) K/uL Gregory # (Auto) 1.24 H 2.13 H (0.24-0.82) K/uL Eos # (Auto) 0.02 0.00 (0-0.50) K/uL Baso # (Auto) 0.07 0.05 (0-0.2) K/uL Comprehensive Metabolic Panel 08/04/22 08/05/22 Range/Units 13:32 06:40 Sodium 141 139 (136-145) mmol/L Potassium 3.8 3.6 (3.5-5.1) mmol/L Chloride 109 H 103 (98-107) mmol/L Carbon Dioxide 21 25 (21-32) mmol/L BUN 21 19 (6-23) mg/dl Creatinine 0.83 0.97 (0.6-1.4) mg/dl Glucose 91 123 H (70-99(Fasting)) mg/dl Calcium 9.3 9.5 (8.5-10.1) mg/dl Direct Bilirubin 0.1 (0-0.2) mg/dl AST 15 (13-39) U/L ALT 7 (7-52) U/L Alkaline Phosphatase 70 (34-104) U/L Total Protein 7.2 (6.0-8.3) gm/dl Albumin 4.4 (3.4-5.0) gm/dl Diagnostic Findings EKG performed 08/04/2022 reveals sinus rhythm with frequent premature atrial contractions, poor R wave progression. Echocardiogram performed today 08/05/2021 reviewed independently by the undersigned: Sinus rhythm with frequent premature atrial contractions, frequent premature ventricular contractions, severe level left ventricular hypokinesis, ejection fraction in the range of 25 to 30%. Compared to the report of the outpatient study dating back to 2011, the LVEF was graded to be 40 to 45% with global hypokinesis at that time.
[2022-08-05] MEDS ORDERED: METOPROLOL TARTRATE 25 MG TAB PO ONE (12:30)
[2022-08-05] MEDS ORDERED: ASPIRIN 81 MG ECTAB PO SCH (12:30)
[2022-08-05] MEDS ORDERED: METOPROLOL TARTRATE 1 MG/ML VIAL IV PRN (12:30)
--- NOTE | 2022-08-05 14:48 | Hospitalist Progress Note ---
Date of Service August 05, 2022 Assessment & Plan (1) Hypertensive urgency: Plan: Known to have high blood pressure but not been taking any medication for the last 4 years Blood pressure is very high in the emergency room Will give intravenous labetalol and also beta-yaya Later on lisinopril added to control the blood pressure and also received another dose of intravenous labetalol Appreciate cardiology input and recommendation Blood pressure remains on the upper side at 154/83 Oral metoprolol 25 mg twice daily has been added and IV metoprolol has been changed to as needed We will monitor while in the hospital Possible atrial fibrillation has been ruled out Patient is started on intravenous heparin which has been discontinued subsequently An irregular cardiac rhythm noted on presentation, initially felt to be atrial fibrillation. Per my personal review of the EKG and his telemetry, I believe the patient has had sinus rhythm with frequent supraventricular and ventricular ectopy. Remains in sinus rhythm and rate is controlled (2) Recurrent falls: Plan: Has been complaining of weakness for a while Worse since Monday last with falls x2 this morning without any significant inj ury No signs and/or symptoms of stroke CT scan of the head is negative No fractures identified We will get PT and OT evaluation (3) CAD (coronary artery disease) of bypass graft: Plan: History of CAD status post bypass:From Cardiology note:The patient's cardiac history dates back to 2011 when he presented to the [facility] with complaints of chest discomfort and exertional shortness of breath of 3 months duration. He was diagnosed with a non-ST segment elevation myocardial infarction and underwent cardiac catheterization revealing a 100% occlusion of the proximal LAD with left to left collaterals from the circumflex coronary artery, no significant obstructive disease was noted in the circumflex obtuse marginal system, and a 90% right coronary artery stenosis was present. The patient went on to have off-pump CABG x2 performed 11/18/2011 receiving BRENNAN to LAD, and SVG to PDA, performed by Dr. Crawford. Troponin is mildly elevated and will cycle troponin Doubt any ACS for now Elevated troponin could be due to a strained and CHF Aspirin, metoprolol and lisinopril have been started (4) CHF (congestive heart failure): Plan: Chest x-ray showed mild congestion Examination is typical for CHF with bilateral crackles more on the right side Doubt any infection Will give Lasix and monitor intake output ECHO-sinus rhythm with frequent ectopy present during echocardiogram, mild concentric LVH, severe global hypokinesis of the left ventricle, systolic function is severely reduced with EF of 25 to 30% and grade 1 diastolic dysfunction. Compared with the report of the outpatient study performed on 01/20/2012 the LVEF was 40 to 45% at the time. Likely to need diuretics (5) Elevated troponin: Plan: Troponin is mildly elevated Will cycle troponin-no ACS DVT prophylaxis Subcu Lovenox CODE STATUS Full Admission and Anticipated Discharge Date Admission Date: August 04, 2022 Subjective 08/05/2022 The patient was seen and examined in telemetry unit He remains very weak and lethargic and does not want to talk much Weakness has been going on for a few months and got worse recently Not in any acute distress and denies any significant symptoms Review of Systems Review of Systems: All systems reviewed and are unremarkable except as noted below Physical Exam Physical Exam: Lying in bed comfortably Constitutional: + ill appearing and average body habitus; no acute distress Eyes: PERRL, conjunctivae normal, anicteric sclerae ENMT: external ear and nose normal, oropharynx normal Neck: trachea midline, no thyromegaly Respiratory: no respiratory distress Auscultation: + diminished lung sounds; no crackles Cardiovascular: Rate/Rhythm: regular rate and regular rhythm; not tachycardic Heart Sounds: normal S1 and normal S2; no murmur Extremities: no edema Gastrointestinal (Abdomen): Inspection/Auscultation: normal bowel sounds; abdomen not distended Percussion/Palpation: abdomen soft; abdomen nontender Musculoskeletal: No acute arthritis in any joint Neurologic: Alert, awake and oriented. Extremely weak and lethargic. Moves all extremities without any focal neurodeficit Lymphatic: no cervical or axillary lymphadenopathy Results & Data Results & Data ([facility]) Vital Signs (Past 12 Hours) Vital Signs Temp Pulse Pulse Resp BP BP Pulse Ox 08/05/22 11:07 37.1 C 72 18 154/83 H 92 08/05/22 07:58 08/05/22 07:01 36.9 C 80 19 193/91 H 94 08/05/22 06:11 85 179/92 H 08/05/22 02:40 36.7 C 85 18 179/92 H 97 O2 Del Method 08/05/22 11:07 Room Air 08/05/22 07:58 Room Air 08/05/22 07:01 Room Air 08/05/22 06:11 08/05/22 02:40 Room Air Laboratory Results Short CBC 08/05/22 Range/Units 06:40 WBC 24.31 H D (4.8-10.8) K/ul Hgb 15.8 (14.0-18.0) g/dl Hct 46.0 (40.1-51.0) % Plt Count 340 (130-400) K/uL BMP 08/05/22 06:40 Sodium 139 Potassium 3.6 Chloride 103 Carbon Dioxide 25 BUN 19 Creatinine 0.97 Glucose 123 H Calcium 9.5 Medications Administered Current Inpatient Medications Aspirin (Aspirin 81 Mg Ectab) 81 mg PO QAM [facility] Stop: 09/04/22 12:29 Last Admin: 08/05/22 12:47 Dose: 81 mg Enoxaparin Sodium (Enoxaparin Inj 40 Mg/0.4 Ml Syr) 40 [facility] [place] Stop: 09/05/22 08:59 Lisinopril (Lisinopril 5 Mg Tab) 5 mg PO QAM [facility] Stop: 09/04/22 08:59 Last Admin: 08/05/22 11:17 Dose: 5 mg Metoprolol Tartrate (Metoprolol Tartrate 25 Mg Tab) 25 mg PO BID [facility] Stop: 09/04/22 20:59 Metoprolol Tartrate (Metoprolol Tartrate 1 Mg/Ml Vial) 5 mg IV Q6 PRN PRN Reason: Blood Pressure - High Stop: 09/03/22 17:59
--- NOTE | 2022-08-05 15:36 | Electrocardiogram Report ---
Test Reason : Blood Pressure : / mmHG Vent. Rate : 079 BPM Atrial Rate : 079 BPM P-R Int : 130 ms QRS Dur : 092 ms QT Int : 416 ms P-R-T Axes : 051 -03 220 degrees QTc Int : 477 ms Sinus rhythm with frequent Premature atrial complexes Old Inferior infarct Nonspecific ST and T wave abnormality Anterolateral leads Abnormal ECG When compared with ECG of 04-AUG-2022 13:35, Nonspecific T wave abnormality has replaced inverted T waves in Anterior leads Borderline Criteria for Inferior infarct now present Confirmed by Prakash Pennington ([id number]) on 08/05/2022 3:35:44 PM Referred By: REFERRED SELF Confirmed By:Prakash Pennington
[2022-08-05] MEDS: METOPROLOL TARTRATE 25 MG TAB PO SCH ×2 (20:15→22:05)
[2022-08-05] MEDS ORDERED: D5W AND 1/2NSS 1,000 ML IV SCH (21:30)
[2022-08-05 21:48] LABS: HCO3 ABG 19 mmol/L (19-24); Oxygen Saturation ABG 86.2 % (90-95); PCO2 ABG 21 mmHg (35-46); PO2 ABG 51 mmHg (80-95)
[2022-08-05 21:55] LABS: Basophils # (auto) 0.05 K/uL (0-0.2); Basophils % (auto) 0.2 %; Hematocrit (blood only) 44.1 % (40.1-51.0); Hemoglobin 15.7 g/dl (14.0-18.0); Immature Granulocytes % (auto) 0.4 %; Lymphocytes # (auto) 1.23 K/uL (1.2-3.4); Lymphocytes % (auto) 5.5 %; Mean Corpuscular Hemoglobin 32.2 pg (25.0-34.0); Mean Corpuscular Hgb Conc 35.6 g/dL (32.0-36.0); Mean Corpuscular Volume 90.4 fL (80.0-100.0); Mean Platelet Volume 10.7 fL (9.4-12.4); Monocytes % (auto) 7.6 %; Neutrophils # (auto) 19.32 K/uL (1.4-6.5); Neutrophils % (auto) 86.3 %; Platelet Count 297 K/uL (130-400); RDW Coefficient of Variation 13.4 % (11.5-14.5); RDW Standard Deviation 45.1 fL (36.4-46.3); Red Blood Count 4.88 M/uL (4.63-6.08)
[2022-08-05 21:55] LABS: Allen Test Pos (Pos)
[2022-08-05 21:56] LABS: pH ABG 7.56 (7.35-7.45)
[2022-08-05 22:10] LABS: Albumin Globulin Ratio 1.2 (0.9-2); Albumin Level 3.7 gm/dl (3.4-5.0); BUN Creatinine Ratio 23.8 (10-20); Bilirubin,Total 1.4 mg/dl (0.2-1.0); Calcium 9.2 mg/dl (8.5-10.1); Creatinine Clr Calc Pharmacy 51.6 ml/min; Est GFR (African American) 68.7 ml/min; Est GFR (Non-African American) 59.3 ml/min; Potassium 3.5 mmol/L (3.5-5.1); Total Protein 6.7 gm/dl (6.0-8.3)
--- NOTE | 2022-08-05 22:11 | CT Scan Report ---
CT head/brain wo con CLINICAL HISTORY: 72 years-old Male with AMS. Acutely altered mental status TECHNIQUE: Multiple axial CT images of the head were obtained without contrast. A dose lowering tech nique was utilized adhering to the principles of ALARA. CT DOSE: 1074.96 mGy.cm COMPARISON: Head CT 08/04/2022 FINDINGS: No acute intracranial hemorrhage, midline shift, intracranial mass, hydrocephalus, or abnormal abnorm al extra-axial collection. Acute right MCA infarct measures up to approximately 6 cm. Motion degraded exam. The study was then repeated. Involutional changes with chronic microvascular ischemic disease. Chronic basal ganglia lacunar infarcts. The calvarium is intact. Small mastoid effusions. IMPRESSION: 1. Moderate sized acute right MCA territorial infarct. 2. No acute intracranial hemorrhage or midline shift. 3. Involutional changes with chronic microvascular ischemic disease. ACT 112: Negative or not required by law. The above report was generated using voice recognition software. It may contain grammatical, syntax o r spelling errors. Electronically signed by: Davis Villagran M.D. 08/05/2022 10:08 PM
[2022-08-05] MEDS ORDERED: OPTIRAY 320 500ml IV ONE (22:42)
--- NOTE | 2022-08-05 23:03 | CT Scan Report ---
CT angio neck with con, CT angio head w con CLINICAL HISTORY: 72 years-old Male with cva. Acute strokelike symptoms COMPARISON STUDY: Head CT of same day TECHNIQUE: Following the IV administration of 110 cc of Optiray, CT angiogram of the head and neck wa s performed from the aortic arch to the skull apex. Images are reviewed in the axial, sagittal, and c oronal planes. 3-D MIPS images are created and assessed. IV contrast was administered without complic ation. All measurements were calculated based on NASCET criteria. A dose lowering technique was util ized adhering to the principles of ALARA. CT DOSE: 494.75 mGy.cm FINDINGS: Atherosclerotic plaque of the thoracic aortic arch. The study is motion degraded. Patency of the inno minate and imaged subclavian arteries. The common carotid arteries are patent. There is moderate athe rosclerotic plaque of the carotid bulbs and proximal cervical segments of the internal carotid arteri es bilaterally. The left internal carotid artery is patent. There is occlusion involving the majority of the right internal carotid artery extending from the cervical segment the level of C3 distally th rough the cavernous segment. There is reconstitution of flow at the ophthalmic segment. There is atte nuation of the distal M3 branches within the right temporal parietal lobes at the area of the acute m oderate-sized infarct. Proximal branches of the MCA appear patent. Anterior cerebral artery is patent . Atheromatous plaque is noted within the bilateral vertebral arteries. Dominant left vertebral arter y. There is high-grade stenosis at the origin of the right vertebral artery of at least 70%. Stenosis of at least 50% is noted throughout the bilateral V2 segment secondary to degenerative changes of th e cervical spine. Basilar and posterior cerebral arteries are patent. There is multifocal luminal michelle rowing involving the P1 segment left posterior cerebral artery with a focal short segment area of hig h-grade stenosis on image 122 series 3. Cerebral venous sinuses are patent. No abnormal intracranial enhancement. Chronic appearing lacunar infarcts of the basal ganglia. Lung apices appear clear. Prior median sternotomy. Unremarkable soft tissues. Polypoid mucosal thicke zoya of the right maxillary sinus. IMPRESSION: 1. Motion degraded exam. Moderate sized acute infarct of the right MCA territory redemonstrated. 2. There is attenuation of the distal M3 branches within the area of the acute infarct. The proximal branches of the middle cerebral arteries appear patent. 3. There is occlusion involving the majority of the right internal carotid artery with reconstitution of flow within the clinoid and supraclinoid segments. 4. High-grade stenosis at the origin of the right vertebral artery. 5. High-grade stenosis of the P1 segment of the left posterior cerebral artery. ACT 112: Negative or not required by law. The above report was generated using voice recognition software. It may contain grammatical, syntax o r spelling errors. Electronically signed by: Davis Villagran M.D. 08/05/2022 11:01 PM
[2022-08-05] MEDS ORDERED: ATORVASTATIN 40 MG TAB PO STA (23:45)
[2022-08-05] MEDS ORDERED: PHARMACIST DISCHARGE MED REC CONSULT PRN (23:45)
[2022-08-06] MEDS: SODIUM CHLORIDE 0.9% 1000ML 1,000 ML IV SCH ×2 (00:12→14:24)
[2022-08-06] MEDS: MAGNESIUM SULFATE / D5W 1 GM/100 ML BAG IV SCH ×2 (00:12→02:08)
[2022-08-06 07:07] LABS: Basophils # (auto) 0.05 K/uL (0-0.2); Basophils % (auto) 0.2 %; Eosinophils # (auto) 0.12 K/uL (0-0.50); Eosinophils % (auto) 0.5 %; Hematocrit (blood only) 40.2 % (40.1-51.0); Immature Granulocytes # (auto) 0.13 K/uL (0.00-0.02); Immature Granulocytes % (auto) 0.6 %; Lymphocytes # (auto) 1.93 K/uL (1.2-3.4); Lymphocytes % (auto) 8.8 %; Mean Corpuscular Hemoglobin 31.9 pg (25.0-34.0); Mean Corpuscular Hgb Conc 34.8 g/dL (32.0-36.0); Mean Corpuscular Volume 91.6 fL (80.0-100.0); Mean Platelet Volume 10.1 fL (9.4-12.4); Monocytes % (auto) 7.3 %; Neutrophils # (auto) 18.13 K/uL (1.4-6.5); Neutrophils % (auto) 82.6 %; Platelet Count 240 K/uL (130-400); RDW Coefficient of Variation 13.7 % (11.5-14.5); RDW Standard Deviation 46.3 fL (36.4-46.3); Red Blood Count 4.39 M/uL (4.63-6.08); White Blood Count 21.96 K/ul (4.8-10.8)
--- NOTE | 2022-08-06 07:16 | Communication Note ---
Date of Service: August 06, 2022 Was called around 8:20pm that patient was more confused and not able to take po pills. Saw the patient. Lying somewhat to right side and looking right side. Was moving right upper extremity. Speaking in very low voice. Did not answer much of the questions. As per notes he was lethargic and getting weaker.As per nursing staff he seems to eat and converse possibly until start of the shift at 7pm. Labs, abg, lactic acid and stat ct head ordered. CT head showed Moderate sized acute right MCA territorial infarct.Then stat cta head and neck ordered and called [facility].By the time spoke with [facility] it was around 10:30pm and as he is out of window from 7pm tpa not given. CTA head and neck :1. Motion degraded exam. Moderate sized acute infarct of the right MCA territory redemonstrated. 2. There is attenuation of the distal M3 branches within the area of the acute infarct. The proximal branches of the middle cerebral arteries appear patent. 3. There is occlusion involving the majority of the right internal carotid artery with reconstitution of flow within the clinoid and supraclinoid segments. 4. High-grade stenosis at the origin of the right vertebral artery. 5. High-grade stenosis of the P1 segment of the left posterior cerebral artery. [facility] thought that no role of vascular intervention based on imaging studies. Recommended to keep MAP 100, fluids NS 75ml/hr for atleast 24hrs.To keep magnesium levels 2.5 to 3.0 for 1-2 days aspirin Suppositry . NG tube and one dose of lipitor 40mg now and follow lipid profile. repeat ct head today afternoon to see if any hemorraghic conversion or extension of stroke, MRI head if possible to see if any more than one lesion, if more than one lesion then to consider source of clot from heart. To follow carotid US and if it shows any opening of right carotid to place on dual antiplatelets. Tried to call went to voice mail. Will call again . Will notify Am providers.
[2022-08-06 07:40] LABS: Estimated Average Glucose 108 mg/dl; Hemoglobin A1C 5.4 % (4.5-5.6)
[2022-08-06 07:42] LABS: BUN Creatinine Ratio 24.6 (10-20); Calcium 8.8 mg/dl (8.5-10.1); Chol HDL Ratio 3.1 (0-5); Creatinine Clr Calc Pharmacy 47.1 ml/min; Est GFR (African American) 61.3 ml/min; Est GFR (Non-African American) 52.9 ml/min; Magnesium 2.9 mg/dl (1.7-2.4); Phosphorus 3.7 mg/dl (2.5-4.9); Potassium 3.5 mmol/L (3.5-5.1)
[2022-08-06] MEDS ORDERED: ENOXAPARIN INJ 40 MG/0.4 ML SYR SQ SCH (09:00)
[2022-08-06] MEDS: METOPROLOL TARTRATE 25 MG TAB PO SCH (09:28)
[2022-08-06] MEDS: lisinopril 5 MG TAB PO SCH (09:28)
[2022-08-06] MEDS: ASPIRIN 300 MG SUPP PR SCH (09:28)
[2022-08-06] MEDS: cefTRIAXone SODIUM 1,000 MG in DEXTROSE 5% 50 ML IV SCH (09:35)
[2022-08-06] MEDS: DOXYCYCLINE HYCLATE 100 MG in DEXTROSE 5% 100 ML IV SCH ×2 (09:35→20:09)
--- NOTE | 2022-08-06 10:25 | Cardiology Progress Note ---
Date of Service August 06, 2022 Assessment & Plan (1) Acute right MCA stroke: (2) Carotid stenosis, symptomatic, with infarction: (3) Left ventricular systolic dysfunction: (4) AAA (abdominal aortic aneurysm): (5) CAD (coronary artery disease) of bypass graft: Plan 72-year-old patient admitted with hypertensive urgency and concerns regarding irregular rhythm. Telemetry reveals sinus with PVCs. Unfortunately, patient suffered a right MCA territory cerebrovascular accident last evening. Out of the window for tPA and treated conservatively. Dysphagia noted and he is currently NPO. Aspirin converted to rectal dosing. Oral metoprolol will be held at this time and transition to Lopressor 5 mg IV every 6 hours. Recommend avoiding hypotension over the next 48 hours in the setting of acute ischemic cerebrovascular accident. Neurology evaluation pending. Admission and Anticipated Discharge Date Admission Date: August 04, 2022 Subjective Patient seen examined at the bedside. Change in mental status noted last evening with subsequent diagnosis of right MCA territory cerebrovascular accident. CTA of the head and neck demonstrating occlusion of the right internal carotid artery with reconstitution of flow within the clinoid and supraclinoid segments. Patient arousable to verbal stimuli. Left-sided neglect noted. Answering some questions with yes and no answers. Able to move all extremities although left- sided weakness noted. Denies chest pain or shortness of breath. Telemetry reveals sinus rhythm with PVCs. He is n.p.o. at this time. Review of Systems Review of Systems: Unobtainable due to cognitive status Physical Exam Constitutional: + ill appearing; no acute distress Respiratory: no respiratory distress and no labored breathing Auscultation: + rhonchi (Bilateral, scattered); no crackles, no rales and no wheezes Cardiovascular: Rate/Rhythm: regular rate and regular rhythm Heart Sounds: normal S1 and normal S2; no murmur Vessels: radial pulses present; no JVD and no carotid bruit Gastrointestinal (Abdomen): Inspection/Auscultation: abdomen normal to inspection and normal bowel sounds; abdomen not distended Percussion/Palpa tion: abdomen soft; abdomen nontender, no guarding and abdomen not rigid Neurologic: + focal motor deficit Motor/Sensory: no tremor Left-sided weakness, left-sided neglect Results [facility]) Vital Signs (Past 12 Hours) Vital Signs Temp Pulse Pulse Resp BP BP BP 08/06/22 08:04 36.4 C L 75 20 152/67 H 08/06/22 02:43 36.8 C 80 22 136/83 08/06/22 00:06 36.8 C 75 20 139/75 08/05/22 23:40 102 H 32 H 08/05/22 23:40 136/73 08/05/22 23:30 105 H 33 H 08/05/22 23:30 139/75 08/05/22 23:20 94 H 30 H 08/05/22 23:20 131/74 08/05/22 23:10 96 H 30 H 08/05/22 23:10 150/82 H 08/05/22 23:00 102 H 28 H 08/05/22 23:00 153/74 H 08/05/22 22:50 103 H 35 H 08/05/22 22:50 148/67 H Pulse Ox O2 Del Method O2 Flow Rate 08/06/22 08:04 91 Oxymask 08/06/22 02:43 90 Oxymask 5 08/06/22 00:06 92 Oxymask 5 08/05/22 23:40 08/05/22 23:40 08/05/22 23:30 08/05/22 23:30 08/05/22 23:20 84 L 08/05/22 23:20 08/05/22 23:10 86 L 08/05/22 23:10 08/05/22 23:00 90 08/05/22 23:00 08/05/22 22:50 08/05/22 22:50
[2022-08-06] MEDS ORDERED: GADOBUTROL 65ML VIAL IV ONE (11:51)
--- NOTE | 2022-08-06 12:16 | Hospitalist Progress Note ---
Date of Service August 06, 2022 Assessment & Plan (1) Hypertensive urgency: Plan: Known to have high blood pressure but not been taking any medication for the last 4 years Blood pressure is very high in the emergency room Will give intravenous labetalol and also beta-yaya Later on lisinopril added to control the blood pressure and also received another dose of intravenous labetalol Appreciate cardiology input and recommendation Blood pressure remains on the upper side at 154/83 Oral metoprolol 25 mg twice daily has been added and IV metoprolol has been changed to as needed We will monitor while in the hospital Possible atrial fibrillation has been ruled out Patient is started on intravenous heparin which has been discontinued subsequently An irregular cardiac rhythm noted on presentation, initially felt to be atrial fibrillation. Per my personal review of the EKG and his telemetry, I believe the patient has had sinus rhythm with frequent supraventricular and ventricular ectopy. Remains in sinus rhythm and rate is controlled Significant leukocytosis UA has been negative and chest x-ray does not have any florid pneumonia Has been getting intravenous ceftriaxone and doxycycline for possible pneumonia We will monitor CBC (2) Acute right MCA stroke: Plan: Noted to be acutely flaccid on the left side with eyes deviated to the right and not being able to take pills at around 8:20 PM 08/05/2022 CT of the head revealed moderate sized acute right MCA territorial infarct with right internal carotid artery obstruction and high-grade stenosis of the right vertebral artery [place] neurologist consulted and will be evaluated by local neurologist Has been getting aspirin and statin Clinically stable this morning with left hemiparesis upper extremity more than the lower extremity MRI has been pending Speech evaluation will be done (3) Recurrent falls: Plan: Has been complaining of weakness for a while Worse since Monday last with falls x2 this morning without any significant injury No signs and/or symptoms of stroke CT scan of the head is negative No fractures identified We will get PT and OT evaluation (4) CAD (coronary artery disease) of bypass graft: Plan: History of CAD status post bypass:From Cardiology note:The patient's cardiac history dates back to 2011 when he presented to the [facility] with complaints of chest discomfort and exertional shortness of breath of 3 months duration. He was diagnosed with a non-ST segment elevation myocardial infarction and underwent cardiac catheterization revealing a 100% occlusion of the proximal LAD with left to left collaterals from the circumflex coronary artery, no significant obstructive disease was noted in the circumflex obtuse marginal system, and a 90% right coronary artery stenosis was present. The patient went on to have off-pump CABG x2 performed 11/18/2011 receiving BRENNAN to LAD, and SVG to PDA, performed by Dr. Crawford. Troponin is mildly elevated and will cycle troponin Doubt any ACS for now Elevated troponin could be due to a strained and CHF Aspirin, metoprolol and lisinopril have been started Medications have been changed through appropriate route (5) CHF (congestive heart failure): Plan: Chest x-ray showed mild congestion Examination is typical for CHF with bilateral crackles more on the right side Doubt any infection Will give Lasix and monitor intake output ECHO-sinus rhythm with frequent ectopy present during echocardiogram, mild concentric LVH, severe global hypokinesis of the left ventricle, systolic function is severely reduced with EF of 25 to 30% and grade 1 diastolic dysfunction. Compared with the report of the outpatient study performed on 01/20/2012 the LVEF was 40 to 45% at the time. Likely to need diuretics (6) Elevated troponin: Plan: Troponin is mildly elevated Will cycle troponin-no ACS DVT prophylaxis Subcu Lovenox CODE STATUS Full Admission and Anticipated Discharge Date Admission Date: August 04, 2022 Subjective 08/05/2022 The patient was seen and examined in telemetry unit He remains very weak and lethargic and does not want to talk much Weakness has been going on for a few months and got worse recently Not in any acute distress and denies any significant symptoms 08/06/2022 The patient was seen and examined in telemetry unit Unfortunately has had a stroke last evening and there was diagnosed around 8:20 PM He has been weak and lethargic since admission and noted to have deviated eyes to the right and left-sided profuse weakness Scans revealed acute stroke Remains stable this morning and is following commands and moving left upper extremity a little Denies any other significant symptoms Review of Systems Review of Systems: All systems reviewed and are unremarkable except as noted below Physical Exam Physical Exam: Lying in bed comfortably and looking to the right side Constitutional: + ill appearing and average body habitus; no acute distress Eyes: PERRL, conjunctivae normal, anicteric sclerae ENMT: external ear and nose normal, oropharynx normal Neck: trachea midline, no thyromegaly Respiratory: no respiratory distress Auscultation: + diminished lung sounds; no crackles Cardiovascular: Rate/Rhythm: regular rate, regular rhythm and + irregularly irregular; not tachycardic Heart Sounds: normal S1 and normal S2; no murmur Extremities: no edema Gastrointestinal (Abdomen): Inspection/Auscultation: normal bowel sounds; abdomen not distended Percussion/Palpation: abdomen soft; abdomen nontender Musculoskeletal: No acute arthritis in any joint Neurologic: moves all extremities (Except decreased movements involving the left upper extremity. Gen weak) and awake; not confused Lymphatic: no cervical or axillary lymphadenopathy Results & Data Results & Data ([facility]) Vital Signs (Past 12 Hours) Vital Signs Temp Pulse Resp BP BP Pulse Ox O2 Del Method 08/06/22 08:00 Oxymask 08/06/22 08:04 36.4 C L 75 20 152/67 H 91 Oxymask 08/06/22 02:43 36.8 C 80 22 136/83 90 Oxymask 08/06/22 00:06 36.8 C 75 20 139/75 92 Oxymask O2 Flow Rate 08/06/22 08:00 7 08/06/22 08:04 08/06/22 02:43 5 08/06/22 00:06 5 Laboratory Results Short CBC 08/05/22 08/06/22 Range/Units 21:31 06:59 WBC 22.40 H 21.96 H (4.8-10.8) K/ul Hgb 15.7 14.0 (14.0-18.0) g/dl Hct 44.1 40.2 (40.1-51.0) % Plt Count 297 240 (130-400) K/uL BMP 08/05/22 08/06/22 21:31 06:59 Sodium 136 136 Potassium 3.5 3.5 Chloride 105 106 Carbon Dioxide 18 L 21 BUN 29 H 33 H Creatinine 1.22 1.34 Glucose 121 H 127 H Calcium 9.2 8.8 Liver Function 08/05/22 Range/Units 21:31 Total Bilirubin 1.4 H (0.2-1.0) mg/dl AST 22 (13-39) U/L ALT 8 (7-52) U/L Alkaline Phosphatase 67 (34-104) U/L Albumin 3.7 (3.4-5.0) gm/dl Medications Administered Current Inpatient Medications Aspirin (Aspirin 81 Mg Ectab) 81 mg PO QAM [facility] Stop: 09/04/22 12:29 Last Admin: 08/05/22 12:47 Dose: 81 mg Aspirin (Aspirin 300 Mg Supp) 300 mg HI DAILY [facility] Stop: 09/05/22 08:59 Last Admin: 08/06/22 09:28 Dose: 300 mg Enoxaparin Sodium (Enoxaparin Inj 40 Mg/0.4 Ml Syr) 40 mg SQ QAM [facility] Stop: 09/05/22 08:59 Sodium Chloride (Nss 1000ml) 1,000 mls @ 75 mls/hr IV .[id number] [facility] Stop: 09/04/22 23:44 Last Admin: 08/06/22 00:12 Dose: 75 mls/hr Ceftriaxone Sodium 1,000 mg/ (Dextrose) 60 mls @ 100 mls/hr IV Q24H [facility]; Protocol Stop: 08/13/22 08:59 Last Infusion: 08/06/22 10:12 Dose: Infused Doxycycline Hyclate 100 mg/ (Dextrose) 110 mls @ 50 mls/hr IV Q12H [facility] Stop: 08/13/22 08:59 Last Infusion: 08/06/22 11:55 Dose: Infused Lisinopril (Lisinopril 5 Mg Tab) 5 mg PO QAM [facility] Stop: 09/04/22 08:59 Last Admin: 08/06/22 09:28 Dose: Not Given Metoprolol Tartrate (Metoprolol Tartrate 25 Mg Tab) 25 mg PO BID [facility] Stop: 09/04/22 20:59 Last Admin: 08/06/22 09:28 Dose: Not Given Metoprolol Tartrate (Metoprolol Tartrate 1 Mg/Ml Vial) 5 mg IV Q6 [facility] Stop: 09/05/22 11:59 Miscellaneous Information (Pharmacist Discharge Med Rec Consult) 1 each N/A UD PRN PRN Reason: Consult Stop: 09/04/22 23:44
--- NOTE | 2022-08-06 12:23 | Magnetic Resonance Report ---
MRI OF THE BRAIN COMBO CLINICAL HISTORY: Stroke. COMPARISON STUDY: CT of the brain dated 08/05/2022. TECHNIQUE: MRI of the brain was performed utilizing various T1 and T2-weighted sequences in the axial , sagittal, and coronal planes. Contrast-enhanced sequences were acquired following the administratio n of 6.5 cc of Gadavist. The examination is compromised by motion artifact. FINDINGS: Brain parenchyma: There are large foci of restricted diffusion seen throughout the right MCA territor y consistent with a large acute to subacute infarct. Strandy edema is noted. This is greatest involvi ng the anterior and posterior watershed territories. There is no hemorrhage or midline shift. No foci of restricted diffusion are seen throughout the left hemisphere. No enhancing mass lesion is identif ied on the postcontrast images. 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 No extra-axial fluid collection is seen. The cerebellar tonsils are normal in configuration. Mineralization is noted in the basal ganglia. Chronic lacunar i nfarcts are present within the basal ganglia bilaterally, the maite, and the right cerebellar hemisphe re. Ventricles, sulci, and cisterns: Prominent secondary to involutional change. Pituitary and sella: Unremarkable. Intracranial vasculature: There is loss of the right internal carotid artery flow void at the skull b ase. The left carotid flow void and the vertebral artery flow voids are maintained. The right MCA vic w void is maintained. Orbits: The bony orbits are grossly intact. Orbital contents are normal in appearance. Sinuses and mastoids: A 2.4 cm retention cyst is noted in the right maxillary antrum. The remaining p vivian nasal sinuses are clear. The mastoid air cells are well pneumatized. Calvarium: Unremarkable. Cervical cord: Partially visualized cervical spinal cord is normal in morphology and signal intensity . IMPRESSION: 1. Large acute to subacute right MCA territory infarct as above. 2. There is no hemorrhage or midline shift. 3. No foci of acute ischemia are seen within the left hemisphere. 4. There is loss of the right internal carotid artery flow-void at the skull base. The flow-void in t he right middle cerebral artery is maintained. ACT 112: Negative or not required by law. Electronically signed by: Levon Padilla M.D. 08/06/2022 12:21 PM
[2022-08-06] MEDS: METOPROLOL TARTRATE 1 MG/ML VIAL IV SCH ×3 (12:37→23:38)
--- NOTE | 2022-08-06 13:42 | CT Scan Report ---
CT SCAN OF THE BRAIN WITHOUT IV CONTRAST CLINICAL HISTORY: Stroke. COMPARISON STUDY: CT of the brain dated 08/05/2022. MRI of the brain performed the same day 08/06/20. TECHNIQUE: Unenhanced axial CT scan of the brain is performed from the vertex to the skull base. A do se lowering technique was utilized adhering to the principles of ALARA. CT DOSE: 614.27 mGy.cm FINDINGS: Brain parenchyma: Again seen is loss of kern-white differentiation throughout the right MCA territory consistent with acute to subacute infarct. Surrounding edema has modestly increase from yesterday. T here is no hemorrhage or midline shift. There is age-related involutional change noting moderate to a dvanced confluent subcortical and periventricular microangiopathic disease. Chronic lacunar infarcts are present within the basal ganglia bilaterally, both thalami, the maite, and the right cerebellar he misphere. No extra-axial fluid collection is seen. Ventricles, sulci, cisterns: Prominent secondary to involutional change. Intracranial vasculature: There is atherosclerotic calcification of the cavernous carotid arteries. Calvarium: Unremarkable. Sinuses and mastoids: A 2.0 cm retention cyst is noted in the right maxillary antrum. The remaining p aranasal sinuses are clear. The mastoid air cells are well pneumatized. Orbits: The bony orbits are grossly intact. IMPRESSION: 1. Large evolving right MCA territory infarct. 2. There is no hemorrhage or midline shift. ACT 112: Negative or not required by law. Electronically signed by: Levon Padilla M.D. 08/06/2022 1:39 PM
--- NOTE | 2022-08-06 17:05 | Neurology Consultation ---
Date of Consultation August 06, 2022 Assessment & Plan (1) Acute right MCA stroke: Impression: The patient was initially admitted with mental status change, frequent fall, generalized weakness, hypertensive urgency and congestive heart failure. There was no focal deficit on admission, unfortunately, the patient was noticed having left-sided weakness and right gaze preference yesterday evening, and imaging studies confirmed a right middle cerebral artery territory large acute/subacute ischemic stroke. CT angiography showed total occlusion of right internal carotid artery with additional right vertebral and left posterior cerebral artery focal severe stenosis. The patient is in n.p.o. Recommendations: Permissive hypertension up to 170/100 blood pressure for next 24 hours. We should avoid hypotension. Apparently, the patient has congestive heart failure and coronary artery disease, and cannot tolerate higher blood pressure. IV normal saline while the patient is NPO. We will leave this decision to cardiology as the patient has active congestive heart failure. Aspirin suppository 300 mg daily while the patient is NPO. Physical therapy, Occupational Therapy and speech pathology consultations. Further decline of neurological condition is expected in the next few days, because of expected ischemic cerebral edema. Overall, prognosis is poor. If the patient survive, then he will be candidate for detention placement with prolonged physical therapy. If the patient's status improves, then he will need to be on double antiplatelet treatment and statin. DVT prophylaxis. Telemetry monitoring. (2) Occlusion of right internal carotid artery: Impression: CT angiography showed total occlusion of right internal carotid artery, age undetermined. Recommendations: Because of total occlusion, the patient is not a candidate for vascular intervention. (3) Left ventricular systolic dysfunction: Impression: The patient presented with hypertensive urgency and congestive heart failure. Recommendations: Per cardiology. (4) Hypertensive urgency: Impression: As seen above. (5) CHF (congestive heart failure): Impression: As seen above. Cardiology is on board. (6) CAD (coronary artery disease) of bypass graft: Plan Thank you for the consultation. History of Present Illness Reason for Consultation: CVA Requesting Physician: Matt Rodriguez MD Attending Physician: Matt Rodriguez MD History of Present Illness The patient is a 72-year-old unknown handed gentleman, who was admitted to hospital on 08/04/2022, after he was brought to emergency department with frequent falls, some mental status change, and hypertensive urgency. There was no focal neurological deficit was reported then. Initially, heart rhythm was considered A. fib, and cardiology consultation was requested, and based on their evaluation, the patient was not having atrial fibrillation and anticoagulation was stopped. He has been poorly compliant with treatment. Since admission, he has been started on oral blood pressure medications. Blood pressure has been lowered gradually. Unfortunately, the patient was noticed having right gaze preference and the left sided hemiparesis yesterday evening, and head CT revealed acute/subacute ischemic stroke involving right middle cerebral artery territory and CT angiography showed total occlusion of right internal carotid artery, and severe stenosis of right vertebral and left P1 segment of posterior cerebral artery. The patient was having difficulty with swallowing and has been kept on n.p.o. The patient is started on aspirin suppository. Oral blood pressure medications has been on hold. Echocardiogram showed significantly decreased ejection fraction and chest x-ray showed congestive heart failure. The patient has significant cardiac history with myocardial infarction, coronary artery disease status post CABG. He was complaining of some shortness of breath on admission. The patient was not considered a candidate for thrombolytic treatment because of uncertain timing of initial neurological symptoms. I have reviewed the patient's chart including imaging studies and visualized them personally. Allergies Allergy/AdvReac Type Severity Reaction Status Date / Time No Known Allergies Allergy Verified 08/04/22 15:02 Home Medications Medication Instructions Recorded Confirmed Type No Known Home Medications 08/04/22 08/04/22 History Patient History Medical History HTN (hypertension) No pertinent family history Surgical History No pertinent past surgical history Social History Smoking Status: Current every day smoker Tobacco Type: Cigarettes Cigarettes Per Day: 5; Tobacco Cessation Education Requested by Patient: No Hx Alcohol Use: No Hx Substance Use: Yes Last Used Substance: Days (ago) Preferred Language: Portuguese Communication Ability: Effective 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 HEENT: Normal exam with inspection. CV: Hearth rhythm is regular. Neck: Supple, no carotid bruits. Lungs: Bibasilar crackles. Abdomen: Soft, non-tender, non-distended. Skin: No rash or ecchymosis. Extremities: No edema or cyanosis NEUROLOGICAL EXAMINATION: Mental Status: Alert and oriented to place, person but not to time. Cranial Nerves: II-XII are intact. No nystagmus. Funduscopy: Normal looking optic discs. Motor: Poor cooperation. The patient moves her right upper and lower extremities strongly. There is weakness on left upper and lower extremity, with strength around 2+ to 3- out of 5. Tone: Decreased tone in left upper and lower extremities. DTRs: 1+ all. Left Babinski. Sensory: Limited examination. The patient feels pinprick in all extremities and reports no asymmetry. Coordination: No dysmetria with right FTN testing. Speech: Some dysarthria but speech is essentially fluent. Comprehension is essentially intact. Gait: Unable to assess. Musculoskeletal: Normal muscle bulk, no atrophy. Results & Data ([facility]) Vital Signs (Past 12 Hours) Vital Signs Temp Pulse Pulse Resp BP BP Pulse Ox 08/06/22 15:33 36.3 C L 58 L 19 157/68 H 92 08/06/22 12:51 36.4 C L 69 20 145/69 H 98 08/06/22 12:37 70 145/69 H 08/06/22 08:00 08/06/22 08:04 36.4 C L 75 20 152/67 H 91 O2 Del Method O2 Flow Rate 08/06/22 15:33 Oxymask 7 08/06/22 12:51 Oxymask 7 08/06/22 12:37 08/06/22 08:00 Oxymask 7 08/06/22 08:04 Oxymask Laboratory Results Laboratory Results - last 24 hr 08/05/22 08/05/22 08/05/22 06:40 21:18 21:18 WBC RBC Hgb Hct MCV MCH MCHC RDW Std Deviation RDW Coeff of Jeanette Plt Count MPV Immature Gran % (Auto) Neut % (Auto) Lymph % (Auto) [place] % (Auto) Eos % (Auto) Baso % (Auto) Neut # (Auto) Lymph # (Auto) [place] # (Auto) Eos # (Auto) Baso # (Auto) Immature Gran # (Auto) ABG pH 7.56 H* ABG pCO2 21 L ABG pO2 51 L ABG HCO3 19 ABG O2 Saturation 86.2 L ABG Base Excess -1.0 Delgado Test Pos Oxygen Given 96% Sodium Potassium Chloride Carbon Dioxide Anion Gap BUN Creatinine Est Cr Clr Drug Dosing Est GFR ( Amer) Est GFR (Non-Af Amer) BUN/Creatinine Ratio Glucose Estimat Average Glucose Hemoglobin A1c Lactate 1.9 Calcium Phosphorus Magnesium Total Bilirubin AST ALT Alkaline Phosphatase Total Protein Albumin Globulin Albumin/Globulin Ratio Triglycerides Cholesterol LDL Cholesterol, Calc VLDL Cholesterol, Calc HDL Cholesterol Cholesterol/HDL Ratio Hepatitis C Ab (EIA) NON-REACTIVE Hep C Ab Signal/Cutoff <0.02 08/05/22 08/05/22 08/06/22 21:31 21:31 06:59 WBC 22.40 H 21.96 H RBC 4.88 4.39 L Hgb 15.7 14.0 Hct 44.1 40.2 MCV 90.4 91.6 MCH 32.2 31.9 MCHC 35.6 34.8 RDW Std Deviation 45.1 46.3 RDW Coeff of Jeanette 13.4 13.7 Plt Count 297 240 MPV 10.7 10.1 Immature Gran % (Auto) 0.4 0.6 Neut % (Auto) 86.3 82.6 Lymph % (Auto) 5.5 8.8 [place] % (Auto) 7.6 7.3 Eos % (Auto) 0.0 0.5 Baso % (Auto) 0.2 0.2 Neut # (Auto) 19.32 H 18.13 H Lymph # (Auto) 1.23 1.93 [place] # (Auto) 1.70 H 1.60 H Eos # (Auto) 0.00 0.12 Baso # (Auto) 0.05 0.05 Immature Gran # (Auto) 0.10 H 0.13 H ABG pH ABG pCO2 ABG pO2 ABG HCO3 ABG O2 Saturation ABG Base Excess Delgado Test Oxygen Given Sodium 136 Potassium 3.5 Chloride 105 Carbon Dioxide 18 L Anion Gap 13 H BUN 29 H Creatinine 1.22 Est Cr Clr Drug Dosing 51.6 Est GFR ( Amer) 68.7 Est GFR (Non-Af Amer) 59.3 BUN/Creatinine Ratio 23.8 H Glucose 121 H Estimat Average Glucose Hemoglobin A1c Lactate Calcium 9.2 Phosphorus Magnesium Total Bilirubin 1.4 H AST 22 ALT 8 Alkaline Phosphatase 67 Total Protein 6.7 Albumin 3.7 Globulin 3.0 Albumin/Globulin Ratio 1.2 Triglycerides Cholesterol LDL Cholesterol, Calc VLDL Cholesterol, Calc HDL Cholesterol Cholesterol/HDL Ratio Hepatitis C Ab (EIA) Hep C Ab Signal/Cutoff 08/06/22 08/06/22 06:59 06:59 WBC RBC Hgb Hct MCV MCH MCHC RDW Std Deviation RDW Coeff of Jeanette Plt Count MPV Immature Gran % (Auto) Neut % (Auto) Lymph % (Auto) [place] % (Auto) Eos % (Auto) Baso % (Auto) Neut # (Auto) Lymph # (Auto) [place] # (Auto) Eos # (Auto) Baso # (Auto) Immature Gran # (Auto) ABG pH ABG pCO2 ABG pO2 ABG HCO3 ABG O2 Saturation ABG Base Excess Delgado Test Oxygen Given Sodium 136 Potassium 3.5 Chloride 106 Carbon Dioxide 21 Anion Gap 9 BUN 33 H Creatinine 1.34 Est Cr Clr Drug Dosing 47.1 Est GFR ( Amer) 61.3 Est GFR (Non-Af Amer) 52.9 BUN/Creatinine Ratio 24.6 H Glucose 127 H Estimat Average Glucose 108 Hemoglobin A1c 5.4 Lactate Calcium 8.8 Phosphorus 3.7 Magnesium 2.9 H Total Bilirubin AST ALT Alkaline Phosphatase Total Protein Albumin Globulin Albumin/Globulin Ratio Triglycerides 100 Cholesterol 152 LDL Cholesterol, Calc 83 VLDL Cholesterol, Calc 20 HDL Cholesterol 49 Cholesterol/HDL Ratio 3.1 Hepatitis C Ab (EIA) Hep C Ab Signal/Cutoff Diagnostic Findings Abdomen/Pelvis CT 08/04/22 13:15 CT SCAN OF THE ABDOMEN AND PELVIS WITH IV CONTRAST CLINICAL HISTORY: Found down. COMPARISON STUDY: Pelvic radiographs performed the same day 08/04/2022. TECHNIQUE: Following the IV administration of 85 cc of Optiray 350, CT scan of the abdomen and pelvis is performed from the lung bases to the proximal femora. Images are reviewed in the axial, sagittal, and coronal planes. IV contrast was administered without complication. A dose lowering technique was utilized adhering to the principles of ALARA. The examination is compromised by motion artifact. FINDINGS: Lung bases: The patient is status post midline sternotomy. The heart is enlarged and without pericardial effusion. The coronary arteries and ends a calcified. Emphysematous change is suspected. There is an indeterminate 1.8 cm nodular opacity at the left lung base seen on image #4. No airspace consolidation or pleural effusion is identified. There is no basilar pneumothorax. There is a small to moderate hiatal hernia. Liver: The contrast-enhanced liver is normal in size, contour, and attenuation. There is no intrahepatic biliary ductal dilatation. The hepatic veins and portal veins are patent. A 3.0 cm left lobe hepatic lesion on image #10 shows peripheral discontinuous nodular enhancement and although incompletely characterized is typical for a benign hemangioma. Gallbladder: Unremarkable. Spleen: Normal in size and attenuation. Pancreas: Unremarkable. Adrenal glands: Bilateral low-attenuation adrenal nodules measure up to 3.0 cm. These likely represent adenomas but cannot be definitely characterized due to the presence of IV contrast. Kidneys: The contrast enhanced kidneys are normal in size and without hydronephrosis. The kidneys enhance symmetrically. Abdominal vasculature: There is advanced atherosclerotic calcification of the abdominal aorta. A bilobed infrarenal abdominal aortic aneurysm measures up to 3.6 x 4.0 cm (AP x transverse). There is high-grade stenosis of the right common iliac artery seen on image #235. There is focal high-grade stenosis of the left common iliac artery seen on image #250. There is high-grade stenosis at the origin of the common hepatic artery seen on image #88. There is moderate stenosis of the celiac trunk. Bowel: There is moderate colonic diverticulosis without CT evidence of acute diverticulitis. Eoio-or-[id number] fecal retention is seen throughout the colon. The appendix is well-visualized and normal. Peritoneum: There is no intraperitoneal free air or abdominal ascites. There is a fat-containing umbilical hernia. Lymphadenopathy: None. Pelvic viscera: The prostate gland is mildly enlarged and heterogeneous. The bladder wall is thickened and trabeculated indicating chronic outlet obstruction. There are small bilateral fat-containing inguinal hernias, left larger than right. Skeletal structures: The skeletal structures are osteopenic. There is moderate lumbosacral spondylosis and mild scoliosis. The lumbosacral spine, bony pelvis, and proximal femora appear intact. No lytic or blastic lesions are seen. IMPRESSION: 1. There is no evidence of solid organ injury in the abdomen or pelvis. 2. There is an indeterminant 1.8 cm nodular opacity at the left lung base. Although this could be on an inflammatory basis, a follow-up chest CT in 1-2 months time is recommended for reassessment as a neoplasm could appear similar. 3. Cardiomegaly and suspect emphysema. 4. Moderate colonic diverticulosis without CT evidence of acute diverticulitis. 5. A bilobed infrarenal abdominal aortic aneurysm measures 3.6 x 4.0 cm. 6. There are foci of high-grade stenosis involving both common iliac arteries 7. Additional findings as above. ACT 112: Positive. There are findings on this exam that require communication between the performing entity and the patient following Patient Test Result Information Act ([place] Act 112) guidelines. Electronically signed by: Levon Padilla M.D. 08/04/2022 2:59 PM Chest X-Ray 08/04/22 13:15 SINGLE VIEW CHEST CLINICAL HISTORY: Fall. FINDINGS: An AP, portable, upright chest radiograph is compared to study dated 11/16/2011. The examination is degraded by portable technique and patient rotation. The patient is status post midline sternotomy. The heart is enlarged noting atherosclerotic calcification of the thoracic aorta. There is mild pulmonary vascular congestion. Chronic interstitial thickening similar to previous. Scarring/atelectasis is noted the lung bases. The lungs and pleural spaces are otherwise clear. No pneumothorax is seen. The skeletal structures are osteopenic. The bony thorax is grossly intact. IMPRESSION: 1. Cardiomegaly with mild pulmonary vascular congestion. 2. No airspace consolidation or large pleural effusion is identified. ACT 112: Negative or not required by law. Electronically signed by: Levon Padilla M.D. 08/04/2022 2:[address] 08/04/22 13:16 CT SCAN OF THE CERVICAL SPINE CLINICAL HISTORY: Found down. COMPARISON STUDY: No priors. TECHNIQUE: CT scan of the cervical spine is performed from the skull base to the upper thoracic spine. Images are reviewed in the axial, sagittal, and coronal planes. IV contrast was not administered for this examination. A dose lowering technique was utilized adhering to the principles of ALARA. FINDINGS: Skeletal structures: The skeletal structures are osteopenic. There is no evidence of fracture or subluxation involving the cervical spine. Vertebral body height is maintained. There is minimal anterolisthesis at C7-T1 and T1-T2. Alignment otherwise maintained. There is straightening of the cervical lordosis. Anterior osteophytes are seen throughout. The odontoid process and lateral masses are intact. The atlantoaxial articulation is preserved noting advanced productive degenerative changes. The spinous processes appear intact. There is moderate to advanced multilevel cervical spondylosis. Uncovertebral and facet arthropathy contribute to neural foraminal narrowing at most levels. Intervertebral discs: There is moderate to severe disc space narrowing at all cervical levels between C3-C4 and C6-C7. Central canal: Posterior disc osteophyte complexes are seen at all cervical levels between C3-C4 and C6-C7. This likely contributes to multilevel acquired compromise of the central canal. Soft tissues: The prevertebral and paraspinous soft tissues are within normal limits. There is atherosclerotic calcification of the carotid bulbs. Calvarium: The visualized calvarium at the skull base appears intact. Brain parenchyma: Partially visualized brain parenchyma at the skull base is within normal limits. Sinuses and mastoids: The visualized paranasal sinuses are clear. The mastoid air cells are well pneumatized. Lung apices: Clear as visualized. IMPRESSION: 1. There is no evidence of fracture or subluxation involving the cervical spine. 2. Osteopenia and spondylotic change as above. ACT 112: Negative or not required by law. Electronically signed by: Levon aPdilla M.D. 08/04/2022 2:[address] 08/04/22 13:16 CT SCAN OF THE BRAIN WITHOUT IV CONTRAST CLINICAL HISTORY: Found down. COMPARISON STUDY: No priors. TECHNIQUE: Unenhanced axial CT scan of the brain is performed from the vertex to the skull base. A dose lowering technique was utilized adhering to the principles of ALARA. CT DOSE: 1219.08 mGy.cm FINDINGS: Brain parenchyma: There is age-related involutional change noting moderate subcortical and periventricular microangiopathic disease. There is no hemorrhage, mass effect, or evidence of acute territorial ischemia by CT criteria. Chronic lacunar infarcts are noted in the right caudate head, the left basal ganglia, the left colby radiata, and both thalami. Prieto-white matter differentiation is preserved. No extra-axial fluid collection is seen. Ventricles, sulci, cisterns: Prominent secondary to involutional change. Intracranial vasculature: There is atherosclerotic calcification of the cavernous carotid and vertebral arteries. Calvarium: Unremarkable. Sinuses and mastoids: The visualized paranasal sinuses are clear. The mastoid air cells are well pneumatized. Orbits: The bony orbits are grossly intact. IMPRESSION: There is no hemorrhage, mass effect, or evidence of acute territorial ischemia by CT criteria. ACT 112: Negative or not required by law. Electronically signed by: Levon Padilla M.D. 08/04/2022 2:42 PM Pelvis X-Ray 08/04/22 13:16 SINGLE VIEW PELVIS CLINICAL HISTORY: Fall. FINDINGS: 2 AP, portable, supine pelvic radiograph is obtained. No prior studies are available for comparison at the time of dictation. The skeletal structures are osteopenic. There is no radiographic evidence of acute fracture involving the hips or bony pelvis. Moderate degenerative joint space narrowing is seen in the hips. There is mild degenerative sclerosis of the sacroiliac joints. Lumbosacral spondylosis is partially visualized. There is atherosclerotic calcification of the iliac and femoral arteries. No bowel obstruction is seen. IMPRESSION: No acute bony abnormality is identified. Electronically signed by: Levon Padilla M.D. 08/04/2022 3:[address] 08/05/22 21:21 CT head/brain wo con CLINICAL HISTORY: 72 years-old Male with AMS. Acutely altered mental status TECHNIQUE: Multiple axial CT images of the head were obtained without contrast. A dose lowering technique was utilized adhering to the principles of ALARA. CT DOSE: 1074.96 mGy.cm COMPARISON: Head CT 08/04/2022 FINDINGS: No acute intracranial hemorrhage, midline shift, intracranial mass, hydrocephalus, or abnormal abnormal extra-axial collection. Acute right MCA infarct measures up to approximately 6 cm. Motion degraded exam. The study was then repeated. Involutional changes with chronic microvascular ischemic disease. Chronic basal ganglia lacunar infarcts. The calvarium is intact. Small mastoid effusions. IMPRESSION: 1. Moderate sized acute right MCA territorial infarct. 2. No acute intracranial hemorrhage or midline shift. 3. Involutional changes with chronic microvascular ischemic disease. ACT 112: Negative or not required by law. The above report was generated using voice recognition software. It may contain grammatical, syntax or spelling errors. Electronically signed by: Davis Villagran M.D. 08/05/2022 10:08 PM Head CTA 08/05/22 22:23 CT angio neck with con, CT angio head w con CLINICAL HISTORY: 72 years-old Male with cva. Acute strokelike symptoms COMPARISON STUDY: Head CT of same day TECHNIQUE: Following the IV administration of 110 cc of Optiray, CT angiogram of the head and neck was performed from the aortic arch to the skull apex. Images are reviewed in the axial, sagittal, and coronal planes. 3-D MIPS images are created and assessed. IV contrast was administered without complication. All measurements were calculated based on NASCET criteria. A dose lowering technique was utilized adhering to the principles of ALARA. CT DOSE: 494.75 mGy.cm FINDINGS: Atherosclerotic plaque of the thoracic aortic arch. The study is motion degraded. Patency of the innominate and imaged subclavian arteries. The common carotid arteries are patent. There is moderate atherosclerotic plaque of the carotid bulbs and proximal cervical segments of the internal carotid arteries bilaterally. The left internal carotid artery is patent. There is occlusion involving the majority of the right internal carotid artery extending from the cervical segment the level of C3 distally through the cavernous segment. There is reconstitution of flow at the ophthalmic segment. There is attenuation of the distal M3 branches within the right temporal parietal lobes at the area of the acute moderate-sized infarct. Proximal branches of the MCA appear patent. Anterior cerebral artery is patent. Atheromatous plaque is noted within the bilateral vertebral arteries. Dominant left vertebral artery. There is high- grade stenosis at the origin of the right vertebral artery of at least 70%. Stenosis of at least 50% is noted throughout the bilateral V2 segment secondary to degenerative changes of the cervical spine. Basilar and posterior cerebral arteries are patent. There is multifocal luminal narrowing involving the P1 segment left posterior cerebral artery with a focal short segment area of high- grade stenosis on image 122 series 3. Cerebral venous sinuses are patent. No abnormal intracranial enhancement. Chronic appearing lacunar infarcts of the basal ganglia. Lung apices appear clear. Prior median sternotomy. Unremarkable soft tissues. Polypoid mucosal thickening of the right maxillary sinus. IMPRESSION: 1. Motion degraded exam. Moderate sized acute infarct of the right MCA territory redemonstrated. 2. There is attenuation of the distal M3 branches within the area of the acute infarct. The proximal branches of the middle cerebral arteries appear patent. 3. There is occlusion involving the majority of the right internal carotid artery with reconstitution of flow within the clinoid and supraclinoid segments. 4. High-grade stenosis at the origin of the right vertebral artery. 5. High-grade stenosis of the P1 segment of the left posterior cerebral artery. ACT 112: Negative or not required by law. The above report was generated using voice recognition software. It may contain grammatical, syntax or spelling errors. Electronically signed by: Davis Villagran M.D. 08/05/2022 11:01 PM Neck CTA 08/05/22 22:23 CT angio neck with con, CT angio head w con CLINICAL HISTORY: 72 years-old Male with cva. Acute strokelike symptoms COMPARISON STUDY: Head CT of same day TECHNIQUE: Following the IV administration of 110 cc of Optiray, CT angiogram of the head and neck was performed from the aortic arch to the skull apex. Images are reviewed in the axial, sagittal, and coronal planes. 3-D MIPS images are created and assessed. IV contrast was administered without complication. All measurements were calculated based on NASCET criteria. A dose lowering technique was utilized adhering to the principles of ALARA. CT DOSE: 494.75 mGy.cm FINDINGS: Atherosclerotic plaque of the thoracic aortic arch. The study is motion degraded. Patency of the innominate and imaged subclavian arteries. The common carotid arteries are patent. There is moderate atherosclerotic plaque of the carotid bulbs and proximal cervical segments of the internal carotid arteries bilaterally. The left internal carotid artery is patent. There is occlusion involving the majority of the right internal carotid artery extending from the cervical segment the level of C3 distally through the cavernous segment. There is reconstitution of flow at the ophthalmic segment. There is attenuation of the distal M3 branches within the right temporal parietal lobes at the area of the acute moderate-sized infarct. Proximal branches of the MCA appear patent. Anterior cerebral artery is patent. Atheromatous plaque is noted within the bilateral vertebral arteries. Dominant left vertebral artery. There is high- grade stenosis at the origin of the right vertebral artery of at least 70%. Stenosis of at least 50% is noted throughout the bilateral V2 segment secondary to degenerative changes of the cervical spine. Basilar and posterior cerebral arteries are patent. There is multifocal luminal narrowing involving the P1 segment left posterior cerebral artery with a focal short segment area of high- grade stenosis on image 122 series 3. Cerebral venous sinuses are patent. No abnormal intracranial enhancement. Chronic appearing lacunar infarcts of the basal ganglia. Lung apices appear clear. Prior median sternotomy. Unremarkable soft tissues. Polypoid mucosal thickening of the right maxillary sinus. IMPRESSION: 1. Motion degraded exam. Moderate sized acute infarct of the right MCA territory redemonstrated. 2. There is attenuation of the distal M3 branches within the area of the acute infarct. The proximal branches of the middle cerebral arteries appear patent. 3. There is occlusion involving the majority of the right internal carotid artery with reconstitution of flow within the clinoid and supraclinoid segments. 4. High-grade stenosis at the origin of the right vertebral artery. 5. High-grade stenosis of the P1 segment of the left posterior cerebral artery. ACT 112: Negative or not required by law. The above report was generated using voice recognition software. It may contain grammatical, syntax or spelling errors. Electronically signed by: Davis Villagran M.D. 08/05/2022 11:01 PM Brain MRI 08/06/22 09:00 MRI OF THE BRAIN COMBO CLINICAL HISTORY: Stroke. COMPARISON STUDY: CT of the brain dated 08/05/2022. TECHNIQUE: MRI of the brain was performed utilizing various T1 and T2-weighted sequences in the axial, sagittal, and coronal planes. Contrast-enhanced sequences were acquired following the administration of 6.5 cc of Gadavist. The examination is compromised by motion artifact. FINDINGS: Brain parenchyma: There are large foci of restricted diffusion seen throughout the right MCA territory consistent with a large acute to subacute infarct. Strandy edema is noted. This is greatest involving the anterior and posterior watershed territories. There is no hemorrhage or midline shift. No foci of restricted diffusion are seen throughout the left hemisphere. No enhancing mass lesion is identified on the postcontrast images. 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 No extra-axial fluid collection is seen. The cerebellar tonsils are normal in configuration. Mineralization is noted in the basal ganglia. Chronic lacunar infarcts are present within the basal ganglia bilaterally, the maite, and the right cerebellar hemisphere. Ventricles, sulci, and cisterns: Prominent secondary to involutional change. Pituitary and sella: Unremarkable. Intracranial vasculature: There is loss of the right internal carotid artery flow void at the skull base. The left carotid flow void and the vertebral artery flow voids are maintained. The right MCA flow void is maintained. Orbits: The bony orbits are grossly intact. Orbital contents are normal in appearance. Sinuses and mastoids: A 2.4 cm retention cyst is noted in the right maxillary antrum. The remaining para nasal sinuses are clear. The mastoid air cells are well pneumatized. Calvarium: Unremarkable. Cervical cord: Partially visualized cervical spinal cord is normal in morphology and signal intensity. IMPRESSION: 1. Large acute to subacute right MCA territory infarct as above. 2. There is no hemorrhage or midline shift. 3. No foci of acute ischemia are seen within the left hemisphere. 4. There is loss of the right internal carotid artery flow-void at the skull base. The flow-void in the right middle cerebral artery is maintained. ACT 112: Negative or not required by law. Electronically signed by: Levon Padilla M.D. 08/06/2022 12:[address] 08/06/22 13:00 CT SCAN OF THE BRAIN WITHOUT IV CONTRAST CLINICAL HISTORY: Stroke. COMPARISON STUDY: CT of the brain dated 08/05/2022. MRI of the brain performed the same day 08/06/2022. TECHNIQUE: Unenhanced axial CT scan of the brain is performed from the vertex to the skull base. A dose lowering technique was utilized adhering to the principles of ALARA. CT DOSE: 614.27 mGy.cm FINDINGS: Brain parenchyma: Again seen is loss of prieto-white differentiation throughout the right MCA territory consistent with acute to subacute infarct. Surrounding edema has modestly increase from yesterday. There is no hemorrhage or midline shift. There is age-related involutional change noting moderate to advanced confluent subcortical and periventricular microangiopathic disease. Chronic lacunar infarcts are present within the basal ganglia bilaterally, both thalami, the maite, and the right cerebellar hemisphere. No extra-axial fluid collection is seen. Ventricles, sulci, cisterns: Prominent secondary to involutional change. Intracranial vasculature: There is atherosclerotic calcification of the cavernous carotid arteries. Calvarium: Unremarkable. Sinuses and mastoids: A 2.0 cm retention cyst is noted in the right maxillary antrum. The remaining paranasal sinuses are clear. The mastoid air cells are well pneumatized. Orbits: The bony orbits are grossly intact. IMPRESSION: 1. Large evolving right MCA territory infarct. 2. There is no hemorrhage or midline shift. ACT 112: Negative or not required by law. Electronically signed by: Levon Padilla M.D. 08/06/2022 1:39 PM
[2022-08-07] MEDS: SODIUM CHLORIDE 0.9% 1000ML 1,000 ML IV SCH (03:09)
[2022-08-07] MEDS: METOPROLOL TARTRATE 1 MG/ML VIAL IV SCH ×3 (05:27→17:28)
[2022-08-07] MEDS: cefTRIAXone SODIUM 1,000 MG in DEXTROSE 5% 50 ML IV SCH (09:08)
[2022-08-07] MEDS: DOXYCYCLINE HYCLATE 100 MG in DEXTROSE 5% 100 ML IV SCH ×2 (09:08→20:11)
[2022-08-07] MEDS: ASPIRIN 300 MG SUPP PR SCH (09:09)
[2022-08-07] MEDS ORDERED: FUROSEMIDE 40 MG/4 ML VIAL IV ONE (09:30)
[2022-08-07] MEDS: lisinopril 5 MG TAB PO SCH (10:16)
--- NOTE | 2022-08-07 10:49 | Hospitalist Progress Note ---
Date of Service August 07, 2022 Assessment & Plan (1) Acute right MCA stroke: Plan: Noted to be acutely flaccid on the left side with eyes deviated to the right and not being able to take pills at around 8:20 PM 08/05/2022 CT of the head revealed moderate sized acute right MCA territorial infarct with right internal carotid artery obstruction and high-grade stenosis of the right vertebral artery [place] neurologist consulted and will be evaluated by local neurologist Has been getting aspirin and statin Clinically stable this morning with left hemiparesis upper extremity more than the lower extremity MRI has been pending Speech evaluation will be done Remains stable and has minimal power involving the left upper extremity Blood pressure remains on the upper side at 161/80 (2) Hypertensive urgency: Plan: Known to have high blood pressure but not been taking any medication for the last 4 years Blood pressure is very high in the emergency room Will give intravenous labetalol and also beta-yaya Later on lisinopril added to control the blood pressure and also received another dose of intravenous labetalol Appreciate cardiology input and recommendation Blood pressure remains on the upper side at 154/83 Oral metoprolol 25 mg twice daily has been added and IV metoprolol has been changed to as needed We will monitor while in the hospital As above Possible atrial fibrillation has been ruled out Patient is started on intravenous heparin which has been discontinued subsequently An irregular cardiac rhythm noted on presentation, initially felt to be atrial fibrillation. Per my personal review of the EKG and his telemetry, I believe the patient has had sinus rhythm with frequent supraventricular and ventricular ectopy. Remains in sinus rhythm and rate is controlled Significant leukocytosis UA has been negative and chest x-ray does not have any florid pneumonia Has been getting intravenous ceftriaxone and doxycycline for possible pneumonia We will monitor CBC and PRP (3) CHF (congestive heart failure): Plan: Chest x-ray showed mild congestion Examination is typical for CHF with bilateral crackles more on the right side Doubt any infection Will give Lasix and monitor intake output ECHO-sinus rhythm with frequent ectopy present during echocardiogram, mild concentric LVH, severe global hypokinesis of the left ventricle, systolic function is severely reduced with EF of 25 to 30% and grade 1 diastolic dysfunction. Compared with the report of the outpatient study performed on 01/20/2012 the LVEF was 40 to 45% at the time. Requiring more oxygen and respiratory findings compatible with CHF Will give IV Lasix of 40 mg Check PRP tomorrow (4) Recurrent falls: Plan: Has been complaining of weakness for a while Worse since Monday last with falls x2 this morning without any significant injury No signs and/or symptoms of stroke CT scan of the head is negative No fractures identified We will get PT and OT evaluation (5) CAD (coronary artery disease) of bypass graft: Plan: History of CAD status post bypass:From Cardiology note:The patient's cardiac history dates back to 2011 when he presented to the [facility] with complaints of chest discomfort and exertional shortness of breath of 3 months duration. He was diagnosed with a non-ST segment elevation myocardial infarction and underwent cardiac catheterization revealing a 100% occlusion of the proximal LAD with left to left collaterals from the circumflex coronary artery, no significant obstructive disease was noted in the circumflex obtuse marginal system, and a 90% right coronary artery stenosis was present. The patient went on to have off-pump CABG x2 performed 11/18/2011 receiving BRENNAN to LAD, and SVG to PDA, performed by Dr. Crawford. Troponin is mildly elevated and will cycle troponin Doubt any ACS for now Elevated troponin could be due to a strained and CHF Aspirin, metoprolol and lisinopril have been started Medications have been changed through appropriate route (6) Elevated troponin: Plan: Troponin is mildly elevated Will cycle troponin-no ACS DVT prophylaxis Subcu Lovenox CODE STATUS Full Discussed with the and the son in detail Admission and Anticipated Discharge Date Admission Date: August 04, 2022 Subjective 08/05/2022 The patient was seen and examined in telemetry unit He remains very weak and lethargic and does not want to talk much Weakness has been going on for a few months and got worse recently Not in any acute distress and denies any significant symptoms 08/06/2022 The patient was seen and examined in telemetry unit Unfortunately has had a stroke last evening and there was diagnosed around 8:20 PM He has been weak and lethargic since admission and noted to have deviated eyes to the right and left-sided profuse weakness Scans revealed acute stroke Remains stable this morning and is following commands and moving left upper extremity a little Denies any other significant symptoms 08/07/2022 The patient was seen and examined in telemetry unit He has been stable and trying to communicate Requiring 7 L of oxygen to maintain saturation Moderate shortness of breath at rest Review of Systems Review of Systems: All systems reviewed and are unremarkable except as noted below Physical Exam Physical Exam: Lying in bed with moderate respiratory distress Constitutional: + ill appearing and average body habitus; no acute distress Eyes: PERRL, conjunctivae normal, anicteric sclerae ENMT: external ear and nose normal, oropharynx normal Neck: trachea midline, no thyromegaly Respiratory: no respiratory distress Auscultation: + diminished lung sounds and + crackles (Coarse crackles bilaterally) Cardiovascular: Rate/Rhythm: regular rate, regular rhythm and + irregularly irregular; not tachycardic Heart Sounds: normal S1 and normal S2; no murmur Extremities: no edema Gastrointestinal (Abdomen): Inspection/Auscultation: normal bowel sounds; abdomen not distended Percussion/Palpation: abdomen soft; abdomen nontender Musculoskeletal: No acute arthritis in any joint Neurologic: moves all extremities (Minimal movement of the left upper extremity) and awake; not confused Alert and awake. Left upper extremity weakness Lymphatic: no cervical or axillary lymphadenopathy Results & Data Results & Data ([facility]) Vital Signs (Past 12 Hours) Vital Signs Temp Pulse Pulse Resp BP BP Pulse Ox 08/07/22 08:00 36.3 C L 70 20 161/80 H 93 08/07/22 05:27 85 174/66 H 08/07/22 02:36 36.8 C 61 20 165/77 H 93 08/06/22 23:00 77 08/06/22 23:38 75 155/76 H O2 Del Method O2 Flow Rate 08/07/22 08:00 Oxymask 7 08/07/22 05:27 08/07/22 02:36 Oxymask 7 08/06/22 23:00 08/06/22 23:38 Medications Administered Current Inpatient Medications Aspirin (Aspirin 81 Mg Ectab) 81 mg PO QAM [facility] Stop: 09/04/22 12:29 Last Admin: 08/05/22 12:47 Dose: 81 mg Aspirin (Aspirin 300 Mg Supp) 300 mg [facility] DAILY [facility] Stop: 09/05/22 08:59 Last Admin: 08/07/22 09:09 Dose: 300 mg Enoxaparin Sodium (Enoxaparin Inj 40 Mg/0.4 Ml Syr) 40 mg SQ QAM [facility] Stop: 09/05/22 08:59 Sodium Chloride (Nss 1000ml) 1,000 mls @ 75 mls/hr IV .[id number] [facility] Stop: 09/04/22 23:44 Last Admin: 08/07/22 03:09 Dose: 75 mls/hr Ceftriaxone Sodium 1,000 mg/ (Dextrose) 60 mls @ 100 mls/hr IV Q24H [facility]; Protocol Stop: 08/13/22 08:59 Last Infusion: 08/07/22 10:16 Dose: Infused Doxycycline Hyclate 100 mg/ (Dextrose) 110 mls @ 50 mls/hr IV Q12H [facility] Stop: 08/13/22 08:59 Last Admin: 08/07/22 09:08 Dose: 50 mls/hr Lisinopril (Lisinopril 5 Mg Tab) 5 mg PO QAM [facility] Stop: 09/04/22 08:59 Last Admin: 08/07/22 10:16 Dose: Not Given Metoprolol Tartrate (Metoprolol Tartrate 25 Mg Tab) 25 mg PO BID [facility] Stop: 09/04/22 20:59 Last Admin: 08/06/22 09:28 Dose: Not Given Metoprolol Tartrate (Metoprolol Tartrate 1 Mg/Ml Vial) 5 mg IV Q6 [facility] Stop: 09/05/22 11:59 Last Admin: 08/07/22 05:27 Dose: 5 mg Miscellaneous Information (Pharmacist Discharge Med Rec Consult) 1 each N/A UD PRN PRN Reason: Consult Stop: 09/04/22 23:44
--- NOTE | 2022-08-07 12:09 | Cardiology Progress Note ---
Date of Service August 07, 2022 Assessment & Plan (1) Acute right MCA stroke: (2) Hypoxia: (3) Aspiration into airway: (4) Carotid stenosis, symptomatic, with infarction: (5) Left ventricular systolic dysfunction: (6) AAA (abdominal aortic aneurysm): (7) CAD (coronary artery disease) of bypass graft: Plan 72-year-old patient admitted with hypertensive urgency and concerns regarding irregular rhythm. Telemetry reveals sinus with PVCs. Patient suffered a right MCA territory cerebrovascular accident 08/05/2022. Hypoxic today with concerns regarding aspiration and volume overload. Agree with dose of IV Lasix. Will hold IV fluids at this time as well. Speech therapy reporting patient cannot protect his airway and is having difficulty managing secretions. I suspect the patient is aspirating at this time. Continue oxygen supplementation. Repeat portable chest x-ray. Add topical nitrates to improve blood pressure control/afterload reduction in the setting of cardiomyopathy/CHF. Resume oral medications when cleared by speech therapy. Admission and Anticipated Discharge Date Admission Date: August 04, 2022 Subjective Patient seen examined the bedside. Left-sided neglect unchanged. Answers some questions with yes and no. Course breath sounds noted. Currently NPO. Blood pressure trending upward. Received 1 dose of IV Lasix per internal medicine this AM. Review of Systems Review of Systems: All systems reviewed & are unremarkable except as noted in Subjective Physical Exam Constitutional: + ill appearing; no acute distress Respiratory: no respiratory distress and no labored breathing Auscultation: + rhonchi (Bilateral, scattered); no crackles, no rales and no wheezes Cardiovascular: Rate/Rhythm: regular rate and regular rhythm Heart Sounds: normal S1 and normal S2; no murmur Vessels: radial pulses present; no JVD and no carotid bruit Gastrointestinal (Abdomen): Inspection/Auscultation: abdomen normal to inspection and normal bowel sounds; abdomen not distended Percussion/Palpation: abdomen soft; abdomen nontender, no guarding and abdomen not rigid Neurologic: + focal motor deficit Motor/Sensory: no tremor Results & Data ([facility]) Vital Signs (Past 12 Hours) Vital Signs Temp Pulse Pulse Resp BP BP Pulse Ox 08/07/22 08:00 08/07/22 08:00 36.3 C L 70 20 161/80 H 93 08/07/22 05:27 85 174/66 H 08/07/22 02:36 36.8 C 61 20 165/77 H 93 O2 Del Method O2 Flow Rate 08/07/22 08:00 Oxymask 7 08/07/22 08:00 Oxymask 7 08/07/22 05:27 08/07/22 02:36 Oxymask 7
[2022-08-07] MEDS: NITROGLYCERIN 2% OINTMENT 30GM TUBE EXT SCH ×2 (12:27→17:42)
--- NOTE | 2022-08-07 12:34 | XRay Report ---
XR chest 1V portable HISTORY: 72 years-old Male hypoxia acute hypoxia COMPARISON: 08/04/2022 TECHNIQUE: AP view of the chest FINDINGS: Cardiac silhouette is enlarged. Prior median sternotomy and CABG. Mild pulmonary vascular congestion. No pneumothorax. Trace right pleural effusion with mild right basilar opacities. Degenerative change s of the shoulders and spine. IMPRESSION: 1. Cardiomegaly with pulmonary vascular congestion. 2. Trace right pleural effusion with mild right basilar opacities. ACT 112: Negative or not required by law. The above report was generated using voice recognition software. It may contain grammatical, syntax o r spelling errors. Electronically signed by: Davis Villagran M.D. 08/07/2022 12:32 PM
--- NOTE | 2022-08-07 18:07 | Neurology Progress Note ---
Date of Service August 07, 2022 Assessment & Plan (1) Acute right MCA stroke: Plan: Impression: The patient was initially admitted with mental status change, frequent fall, generalized weakness, hypertensive urgency and congestive heart failure. There was no focal deficit on admission, unfortunately, the patient was noticed having left-sided weakness and right gaze preference yesterday evening, and imaging studies confirmed a right middle cerebral artery territory large acute/subacute ischemic stroke. CT angiography showed total occlusion of right internal carotid artery with additional right vertebral and left posterior cerebral artery focal severe stenosis. Left hemiparesis and hemineglect persist. No significant change of mental status. Recommendations: No further permissive hypertension is indicated. We should avoid hypotension. Aspirin suppository 300 mg daily while the patient is NPO. Switch to aspirin 81 mg + plavix 75 mg when po is established. Physical therapy, Occupational Therapy and speech pathology will follow. If the patient gets more stable, then he will be candidate for [place] with prolonged physical therapy. Lipid panel. Goal LDL <70. Treat on statin when po is comfortable. DVT prophylaxis. Will need outpatient neurology f/u. (2) Occlusion of right internal carotid artery: Plan: Impression: CT angiography showed total occlusion of right internal carotid artery, age undetermined. Recommendations: Because of total occlusion, the patient is not a candidate for vascular intervention. (3) Left ventricular systolic dysfunction: Plan: Impression: The patient presented with hypertensive urgency and congestive heart failure. Recommendations: Per cardiology. (4) Hypertensive urgency: Plan: Impression: As seen above. (5) CHF (congestive heart failure): Plan: Impression: As seen above. Cardiology is on board. (6) CAD (coronary artery disease) of bypass graft: Plan We will follow as needed. Admission and Anticipated Discharge Date Admission Date: August 04, 2022 Subjective Patient seen examined the bedside. The patient more alert and responsive today. He still has hemineglect, and left hemiparesis. He has some respiratory distress, needs oxygen. He tolerated some oral intake today. Review of Systems Review of Systems: All systems reviewed & are unremarkable except as noted in Subjective Physical Exam Physical Exam: General Examination: Constitutional: Well developed person in some respiratory distress. HEENT: Normal exam with inspection. CV: Hearth rhythm is regular. Neck: Supple, no carotid bruits. Lungs: Bibasilar crackles. Abdomen: Soft, non-tender, non-distended. Skin: No rash or ecchymosis. Extremities: No edema or cyanosis NEUROLOGICAL EXAMINATION: Mental Status: Alert and oriented to place, person but not to time. Cranial Nerves: II-XII are intact. No nystagmus. Right gaze-preference but able to pass midline when asked. Funduscopy: Normal looking optic discs. Motor: Poor cooperation. The patient moves her right upper and lower extremities strongly. There is weakness on left upper and lower extremity, with strength around 2+ to 3- out of 5. Tone: Decreased tone in left upper and lower extremities. DTRs: 1+ all. Left Babinski. Sensory: Limited examination. The patient feels pinprick in all extremities and reports no asymmetry. Left hemineglect. Coordination: No dysmetria with right FTN testing. Speech: Some dysarthria but speech is essentially fluent. Comprehension is essentially intact. Gait: Unable to assess. Musculoskeletal: Normal muscle bulk, no atrophy. Results & Data ([facility]) Vital Signs (Past 12 Hours) Vital Signs Temp Pulse Pulse Resp BP BP Pulse Ox 08/07/22 17:28 84 162/71 H 08/07/22 17:27 84 162/71 H 08/07/22 15:30 36.7 C 82 18 169/71 H 90 08/07/22 13:43 08/07/22 12:00 36.6 C 77 18 159/88 H 92 08/07/22 12:08 77 159/88 H 08/07/22 08:00 08/07/22 08:00 36.3 C L 70 20 161/80 H 93 Pulse Ox Pulse Ox O2 Del Method O2 Flow Rate O2 Flow Rate O2 Flow Rate 08/07/22 17:28 08/07/22 17:27 08/07/22 15:30 Nasal Cannula 9 08/07/22 13:43 93 87 L 7 7 08/07/22 12:00 Oxymask 7 08/07/22 12:08 08/07/22 08:00 Oxymask 7 08/07/22 08:00 Oxymask 7 Laboratory Results Laboratory Results - last 24 hr 08/07/22 05:11 Magnesium 2.5 H Diagnostic Findings Abdomen/Pelvis CT 08/04/22 13:15 CT SCAN OF THE ABDOMEN AND PELVIS WITH IV CONTRAST CLINICAL HISTORY: Found down. COMPARISON STUDY: Pelvic radiographs performed the same day 08/04/2022. TECHNIQUE: Following the IV administration of 85 cc of Optiray 350, CT scan of the abdomen and pelvis is performed from the lung bases to the proximal femora. Images are reviewed in the axial, sagittal, and coronal planes. IV contrast was administered without complication. A dose lowering technique was utilized adhering to the principles of ALARA. The examination is compromised by motion artifact. FINDINGS: Lung bases: The patient is status post midline sternotomy. The heart is enlarged and without pericardial effusion. The coronary arteries and ends a calcified. Emphysematous change is suspected. There is an indeterminate 1.8 cm nodular opacity at the left lung base seen on image #4. No airspace consolidation or pleural effusion is identified. There is no basilar pneumothorax. There is a small to moderate hiatal hernia. Liver: The contrast-enhanced liver is normal in size, contour, and attenuation. There is no intrahepatic biliary ductal dilatation. The hepatic veins and portal veins are patent. A 3.0 cm left lobe hepatic lesion on image #10 shows peripheral discontinuous nodular enhancement and although incompletely characterized is typical for a benign hemangioma. Gallbladder: Unremarkable. Spleen: Normal in size and attenuation. Pancreas: Unremarkable. Adrenal glands: Bilateral low-attenuation adrenal nodules measure up to 3.0 cm. These likely represent adenomas but cannot be definitely characterized due to the presence of IV contrast. Kidneys: The contrast enhanced kidneys are normal in size and without hydronephrosis. The kidneys enhance symmetrically. Abdominal vasculature: There is advanced atherosclerotic calcification of the abdominal aorta. A bilobed infrarenal abdominal aortic aneurysm measures up to 3.6 x 4.0 cm (AP x transverse). There is high-grade stenosis of the right common iliac artery seen on image #235. There is focal high-grade stenosis of the left common iliac artery seen on image #250. There is high-grade stenosis at the origin of the common hepatic artery seen on image #88. There is moderate stenosis of the celiac trunk. Bowel: There is moderate colonic diverticulosis without CT evidence of acute diverticulitis. [id number] fecal retention is seen throughout the colon. The appendix is well-visualized and normal. Peritoneum: There is no intraperitoneal free air or abdominal ascites. There is a fat-containing umbilical hernia. Lymphadenopathy: None. Pelvic viscera: The prostate gland is mildly enlarged and heterogeneous. The bladder wall is thickened and trabeculated indicating chronic outlet obstruction. There are small bilateral fat-containing inguinal hernias, left larger than right. Skeletal structures: The skeletal structures are osteopenic. There is moderate lumbosacral spondylosis and mild scoliosis. The lumbosacral spine, bony pelvis, and proximal femora appear intact. No lytic or blastic lesions are seen. IMPRESSION: 1. There is no evidence of solid organ injury in the abdomen or pelvis. 2. There is an indeterminant 1.8 cm nodular opacity at the left lung base. Although this could be on an inflammatory basis, a follow-up chest CT in 1-2 months time is recommended for reassessment as a neoplasm could appear similar. 3. Cardiomegaly and suspect emphysema. 4. Moderate colonic diverticulosis without CT evidence of acute diverticulitis. 5. A bilobed infrarenal abdominal aortic aneurysm measures 3.6 x 4.0 cm. 6. There are foci of high-grade stenosis involving both common iliac arteries 7. Additional findings as above. ACT 112: Positive. There are findings on this exam that require communication between the performing entity and the patient following Patient Test Result Information Act ([place] Act 112) guidelines. Electronically signed by: Levon Padilla M.D. 08/04/2022 2:59 PM Chest X-Ray 08/04/22 13:15 SINGLE VIEW CHEST CLINICAL HISTORY: Fall. FINDINGS: An AP, portable, upright chest radiograph is compared to study dated 11/16/2011. The examination is degraded by portable technique and patient rotation. The patient is status post midline sternotomy. The heart is enlarged noting atherosclerotic calcification of the thoracic aorta. There is mild pulmonary vascular congestion. Chronic interstitial thickening similar to previous. Scarring/atelectasis is noted the lung bases. The lungs and pleural spaces are otherwise clear. No pneumothorax is seen. The skeletal structures are osteopenic. The bony thorax is grossly intact. IMPRESSION: 1. Cardiomegaly with mild pulmonary vascular congestion. 2. No airspace consolidation or large pleural effusion is identified. ACT 112: Negative or not required by law. Electronically signed by: Levon Padilla M.D. 08/04/2022 2:[address] 08/04/22 13:16 CT SCAN OF THE CERVICAL SPINE CLINICAL HISTORY: Found down. COMPARISON STUDY: No priors. TECHNIQUE: CT scan of the cervical spine is performed from the skull base to the upper thoracic spine. Images are reviewed in the axial, sagittal, and coronal planes. IV contrast was not administered for this examination. A dose lowering technique was utilized adhering to the principles of ALARA. FINDINGS: Skeletal structures: The skeletal structures are osteopenic. There is no evidence of fracture or subluxation involving the cervical spine. Vertebral body height is maintained. There is minimal anterolisthesis at C7-T1 and T1-T2. Alignment otherwise maintained. There is straightening of the cervical lordosis. Anterior osteophytes are seen throughout. The odontoid process and lateral masses are intact. The atlantoaxial articulation is preserved noting advanced productive degenerative changes. The spinous processes appear intact. There is moderate to advanced multilevel cervical spondylosis. Uncovertebral and facet arthropathy contribute to neural foraminal narrowing at most levels. Intervertebral discs: There is moderate to severe disc space narrowing at all cervical levels between C3-C4 and C6-C7. Central canal: Posterior disc osteophyte complexes are seen at all cervical levels between C3-C4 and C6-C7. This likely contributes to multilevel acquired compromise of the central canal. Soft tissues: The prevertebral and paraspinous soft tissues are within normal limits. There is atherosclerotic calcification of the carotid bulbs. Calvarium: The visualized calvarium at the skull base appears intact. Brain parenchyma: Partially visualized brain parenchyma at the skull base is within normal limits. Sinuses and mastoids: The visualized paranasal sinuses are clear. The mastoid air cells are well pneumatized. Lung apices: Clear as visualized. IMPRESSION: 1. There is no evidence of fracture or subluxation involving the cervical spine. 2. Osteopenia and spondylotic change as above. ACT 112: Negative or not required by law. Electronically signed by: Levon Padilla M.D. 08/04/2022 2:[address] 08/04/22 13:16 CT SCAN OF THE BRAIN WITHOUT IV CONTRAST CLINICAL HISTORY: Found down. COMPARISON STUDY: No priors. TECHNIQUE: Unenhanced axial CT scan of the brain is performed from the vertex to the skull base. A dose lowering technique was utilized adhering to the principles of ALARA. CT DOSE: 1219.08 mGy.cm FINDINGS: Brain parenchyma: There is age-related involutional change noting moderate subcortical and periventricular microangiopathic disease. There is no hemorrhage, mass effect, or evidence of acute territorial ischemia by CT criteria. Chronic lacunar infarcts are noted in the right caudate head, the left basal ganglia, the left colby radiata, and both thalami. Prieto-white matter differentiation is preserved. No extra-axial fluid collection is seen. Ventricles, sulci, cisterns: Prominent secondary to involutional change. Intracranial vasculature: There is atherosclerotic calcification of the cavernous carotid and vertebral arteries. Calvarium: Unremarkable. Sinuses and mastoids: The visualized paranasal sinuses are clear. The mastoid air cells are well pneumatized. Orbits: The bony orbits are grossly intact. IMPRESSION: There is no hemorrhage, mass effect, or evidence of acute territorial ischemia by CT criteria. ACT 112: Negative or not required by law. Electronically signed by: Levon Padilla M.D. 08/04/2022 2:42 PM Pelvis X-Ray 08/04/22 13:16 SINGLE VIEW PELVIS CLINICAL HISTORY: Fall. FINDINGS: 2 AP, portable, supine pelvic radiograph is obtained. No prior studies are available for comparison at the time of dictation. The skeletal structures are osteopenic. There is no radiographic evidence of acute fracture involving the hips or bony pelvis. Moderate degenerative joint space narrowing is seen in the hips. There is mild degenerative sclerosis of the sacroiliac joints. Lumbosacral spondylosis is partially visualized. There is atherosclerotic calcification of the iliac and femoral arteries. No bowel obstruction is seen. IMPRESSION: No acute bony abnormality is identified. Electronically signed by: Levon Padilla M.D. 08/04/2022 3:[address] 08/05/22 21:21 CT head/brain wo con CLINICAL HISTORY: 72 years-old Male with AMS. Acutely altered mental status TECHNIQUE: Multiple axial CT images of the head were obtained without contrast. A dose lowering technique was utilized adhering to the principles of ALARA. CT DOSE: 1074.96 mGy.cm COMPARISON: Head CT 08/04/2022 FINDINGS: No acute intracranial hemorrhage, midline shift, intracranial mass, hydrocephalus, or abnormal abnormal extra-axial collection. Acute right MCA infarct measures up to approximately 6 cm. Motion degraded exam. The study was then repeated. Involutional changes with chronic microvascular ischemic disease. Chronic basal ganglia lacunar infarcts. The calvarium is intact. Small mastoid effusions. IMPRESSION: 1. Moderate sized acute right MCA territorial infarct. 2. No acute intracranial hemorrhage or midline shift. 3. Involutional changes with chronic microvascular ischemic disease. ACT 112: Negative or not required by law. The above report was generated using voice recognition software. It may contain grammatical, syntax or spelling errors. Electronically signed by: Davis Villagran M.D. 08/05/2022 10:08 PM Head CTA 08/05/22 22:23 CT angio neck with con, CT angio head w con CLINICAL HISTORY: 72 years-old Male with cva. Acute strokelike symptoms COMPARISON STUDY: Head CT of same day TECHNIQUE: Following the IV administration of 110 cc of Optiray, CT angiogram of the head and neck was performed from the aortic arch to the skull apex. Images are reviewed in the axial, sagittal, and coronal planes. 3-D MIPS images are created and assessed. IV contrast was administered without complication. All measurements were calculated based on NASCET criteria. A dose lowering technique was utilized adhering to the principles of ALARA. CT DOSE: 494.75 mGy.cm FINDINGS: Atherosclerotic plaque of the thoracic aortic arch. The study is motion degraded. Patency of the innominate and imaged subclavian arteries. The common carotid arteries are patent. There is moderate atherosclerotic plaque of the carotid bulbs and proximal cervical segments of the internal carotid arteries bilaterally. The left internal carotid artery is patent. There is occlusion involving the majority of the right internal carotid artery extending from the cervical segment the level of C3 distally through the cavernous segment. There is reconstitution of flow at the ophthalmic segment. There is attenuation of the distal M3 branches within the right temporal parietal lobes at the area of the acute moderate-sized infarct. Proximal branches of the MCA appear patent. Anterior cerebral artery is patent. Atheromatous plaque is noted within the bilateral vertebral arteries. Dominant left vertebral artery. There is high- grade stenosis at the origin of the right vertebral artery of at least 70%. Stenosis of at least 50% is noted throughout the bilateral V2 segment secondary to degenerative changes of the cervical spine. Basilar and posterior cerebral arteries are patent. There is multifocal luminal narrowing involving the P1 segment left posterior cerebral artery with a focal short segment area of high- grade stenosis on image 122 series 3. Cerebral venous sinuses are patent. No abnormal intracranial enhancement. Chronic appearing lacunar infarcts of the basal ganglia. Lung apices appear clear. Prior median sternotomy. Unremarkable soft tissues. Polypoid mucosal thickening of the right maxillary sinus. IMPRESSION: 1. Motion degraded exam. Moderate sized acute infarct of the right MCA territory redemonstrated. 2. There is attenuation of the distal M3 branches within the area of the acute infarct. The proximal branches of the middle cerebral arteries appear patent. 3. There is occlusion involving the majority of the right internal carotid artery with reconstitution of flow within the clinoid and supraclinoid segments. 4. High-grade stenosis at the origin of the right vertebral artery. 5. High-grade stenosis of the P1 segment of the left posterior cerebral artery. ACT 112: Negative or not required by law. The above report was generated using voice recognition software. It may contain grammatical, syntax or spelling errors. Electronically signed by: Davis Villagran M.D. 08/05/2022 11:01 PM Neck CTA 08/05/22 22:23 CT angio neck with con, CT angio head w con CLINICAL HISTORY: 72 years-old Male with cva. Acute strokelike symptoms COMPARISON STUDY: Head CT of same day TECHNIQUE: Following the IV administration of 110 cc of Optiray, CT angiogram of the head and neck was performed from the aortic arch to the skull apex. Images are reviewed in the axial, sagittal, and coronal planes. 3-D MIPS images are created and assessed. IV contrast was administered without complication. All measurements were calculated based on NASCET criteria. A dose lowering technique was utilized adhering to the principles of ALARA. CT DOSE: 494.75 mGy.cm FINDINGS: Atherosclerotic plaque of the thoracic aortic arch. The study is motion degraded. Patency of the innominate and imaged subclavian arteries. The common carotid arteries are patent. There is moderate atherosclerotic plaque of the carotid bulbs and proximal cervical segments of the internal carotid arteries bilaterally. The left internal carotid artery is patent. There is occlusion involving the majority of the right internal carotid artery extending from the cervical segment the level of C3 distally through the cavernous segment. There is reconstitution of flow at the ophthalmic segment. There is attenuation of the distal M3 branches within the right temporal parietal lobes at the area of the acute moderate-sized infarct. Proximal branches of the MCA appear patent. Anterior cerebral artery is patent. Atheromatous plaque is noted within the bilateral vertebral arteries. Dominant left vertebral artery. There is high-gra de stenosis at the origin of the right vertebral artery of at least 70%. Stenosis of at least 50% is noted throughout the bilateral V2 segment secondary to degenerative changes of the cervical spine. Basilar and posterior cerebral arteries are patent. There is multifocal luminal narrowing involving the P1 segment left posterior cerebral artery with a focal short segment area of high- grade stenosis on image 122 series 3. Cerebral venous sinuses are patent. No abnormal intracranial enhancement. Chronic appearing lacunar infarcts of the basal ganglia. Lung apices appear clear. Prior median sternotomy. Unremarkable soft tissues. Polypoid mucosal thickening of the right maxillary sinus. IMPRESSION: 1. Motion degraded exam. Moderate sized acute infarct of the right MCA territory redemonstrated. 2. There is attenuation of the distal M3 branches within the area of the acute infarct. The proximal branches of the middle cerebral arteries appear patent. 3. There is occlusion involving the majority of the right internal carotid artery with reconstitution of flow within the clinoid and supraclinoid segments. 4. High-grade stenosis at the origin of the right vertebral artery. 5. High-grade stenosis of the P1 segment of the left posterior cerebral artery. ACT 112: Negative or not required by law. The above report was generated using voice recognition software. It may contain grammatical, syntax or spelling errors. Electronically signed by: Davis Villagran M.D. 08/05/2022 11:01 PM Brain MRI 08/06/22 09:00 MRI OF THE BRAIN COMBO CLINICAL HISTORY: Stroke. COMPARISON STUDY: CT of the brain dated 08/05/2022. TECHNIQUE: MRI of the brain was performed utilizing various T1 and T2-weighted sequences in the axial, sagittal, and coronal planes. Contrast-enhanced sequences were acquired following the administration of 6.5 cc of Gadavist. The examination is compromised by motion artifact. FINDINGS: Brain parenchyma: There are large foci of restricted diffusion seen throughout the right MCA territory consistent with a large acute to subacute infarct. Strandy edema is noted. This is greatest involving the anterior and posterior watershed territories. There is no hemorrhage or midline shift. No foci of restricted diffusion are seen throughout the left hemisphere. No enhancing mass lesion is identified on the postcontrast images. 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 No extra-axial fluid collection is seen. The cerebellar tonsils are normal in configuration. Mineralization is noted in the basal ganglia. Chronic lacunar infarcts are present within the basal ganglia bilaterally, the maite, and the right cerebellar hemisphere. Ventricles, sulci, and cisterns: Prominent secondary to involutional change. Pituitary and sella: Unremarkable. Intracranial vasculature: There is loss of the right internal carotid artery flow void at the skull base. The left carotid flow void and the vertebral artery flow voids are maintained. The right MCA flow void is maintained. Orbits: The bony orbits are grossly intact. Orbital contents are normal in appearance. Sinuses and mastoids: A 2.4 cm retention cyst is noted in the right maxillary antrum. The remaining para nasal sinuses are clear. The mastoid air cells are well pneumatized. Calvarium: Unremarkable. Cervical cord: Partially visualized cervical spinal cord is normal in morphology and signal intensity. IMPRESSION: 1. Large acute to subacute right MCA territory infarct as above. 2. There is no hemorrhage or midline shift. 3. No foci of acute ischemia are seen within the left hemisphere. 4. There is loss of the right internal carotid artery flow-void at the skull base. The flow-void in the right middle cerebral artery is maintained. ACT 112: Negative or not required by law. Electronically signed by: Levon Padilla M.D. 08/06/2022 12:[address] 08/06/22 13:00 CT SCAN OF THE BRAIN WITHOUT IV CONTRAST CLINICAL HISTORY: Stroke. COMPARISON STUDY: CT of the brain dated 08/05/2022. MRI of the brain performed the same day 08/06/2022. TECHNIQUE: Unenhanced axial CT scan of the brain is performed from the vertex to the skull base. A dose lowering technique was utilized adhering to the principles of ALARA. CT DOSE: 614.27 mGy.cm FINDINGS: Brain parenchyma: Again seen is loss of prieto-white differentiation throughout the right MCA territory consistent with acute to subacute infarct. Surrounding edema has modestly increase from yesterday. There is no hemorrhage or midline shift. There is age-related involutional change noting moderate to advanced confluent subcortical and periventricular microangiopathic disease. Chronic lacunar infarcts are present within the basal ganglia bilaterally, both thalami, the maite, and the right cerebellar hemisphere. No extra-axial fluid collection is seen. Ventricles, sulci, cisterns: Prominent secondary to involutional change. Intracranial vasculature: There is atherosclerotic calcification of the cavernous carotid arteries. Calvarium: Unremarkable. Sinuses and mastoids: A 2.0 cm retention cyst is noted in the right maxillary antrum. The remaining paranasal sinuses are clear. The mastoid air cells are well pneumatized. Orbits: The bony orbits are grossly intact. IMPRESSION: 1. Large evolving right MCA territory infarct. 2. There is no hemorrhage or midline shift. ACT 112: Negative or not required by law. Electronically signed by: Levon Padilla M.D. 08/06/2022 1:39 PM Chest X-Ray 08/07/22 12:02 XR chest 1V portable HISTORY: 72 years-old Male hypoxia acute hypoxia COMPARISON: 08/04/2022 TECHNIQUE: AP view of the chest FINDINGS: Cardiac silhouette is enlarged. Prior median sternotomy and CABG. Mild pulmonary vascular congestion. No pneumothorax. Trace right pleural effusion with mild right basilar opacities. Degenerative changes of the shoulders and spine. IMPRESSION: 1. Cardiomegaly with pulmonary vascular congestion. 2. Trace right pleural effusion with mild right basilar opacities. ACT 112: Negative or not required by law. The above report was generated using voice recognition software. It may contain grammatical, syntax or spelling errors. Electronically signed by: Davis Villagran M.D. 08/07/2022 12:32 PM
[2022-08-08] MEDS: METOPROLOL TARTRATE 1 MG/ML VIAL IV SCH ×4 (00:02→17:39)
[2022-08-08] MEDS: NITROGLYCERIN 2% OINTMENT 30GM TUBE EXT SCH ×4 (00:07→17:39)
[2022-08-08 06:17] LABS: Basophils # (auto) 0.02 K/uL (0-0.2); Basophils % (auto) 0.2 %; Hematocrit (blood only) 38.7 % (40.1-51.0); Hemoglobin 13.2 g/dl (14.0-18.0); Immature Granulocytes # (auto) 0.08 K/uL (0.00-0.02); Immature Granulocytes % (auto) 0.6 %; Lymphocytes # (auto) 1.62 K/uL (1.2-3.4); Lymphocytes % (auto) 12.6 %; Mean Corpuscular Hemoglobin 31.3 pg (25.0-34.0); Mean Corpuscular Hgb Conc 34.1 g/dL (32.0-36.0); Mean Corpuscular Volume 91.7 fL (80.0-100.0); Mean Platelet Volume 10.7 fL (9.4-12.4); Monocytes % (auto) 10.9 %; Neutrophils # (auto) 9.77 K/uL (1.4-6.5); Neutrophils % (auto) 75.7 %; Platelet Count 272 K/uL (130-400); RDW Coefficient of Variation 13.6 % (11.5-14.5); RDW Standard Deviation 46.1 fL (36.4-46.3); Red Blood Count 4.22 M/uL (4.63-6.08); White Blood Count 12.89 K/ul (4.8-10.8)
[2022-08-08 06:40] LABS: BUN Creatinine Ratio 31.1 (10-20); Calcium 8.7 mg/dl (8.5-10.1); Est GFR (African American) 99.2 ml/min; Est GFR (Non-African American) 85.6 ml/min; Magnesium 2.5 mg/dl (1.7-2.4); Potassium 3.1 mmol/L (3.5-5.1)
[2022-08-08] MEDS: ASPIRIN 300 MG SUPP PR SCH (08:14)
[2022-08-08] MEDS: cefTRIAXone SODIUM 1,000 MG in DEXTROSE 5% 50 ML IV SCH (08:32)
[2022-08-08] MEDS: lisinopril 5 MG TAB PO SCH (10:14)
[2022-08-08] MEDS: DOXYCYCLINE HYCLATE 100 MG in DEXTROSE 5% 100 ML IV SCH ×2 (10:20→21:17)
[2022-08-08] MEDS: POTASSIUM CHLORIDE / WTR 10 MEQ/100 ML PLCT IV SCH ×2 (10:31→12:19)
--- NOTE | 2022-08-08 11:22 | Cardiology Progress Note ---
Date of Service August 08, 2022 Assessment & Plan (1) Acute right MCA stroke: (2) Hypoxia: (3) Aspiration into airway: (4) Carotid stenosis, symptomatic, with infarction: (5) Left ventricular systolic dysfunction: (6) AAA (abdominal aortic aneurysm): (7) CAD (coronary artery disease) of bypass graft: Plan 72-year-old patient admitted with hypertensive urgency and concerns regarding irregular rhythm. Telemetry reveals sinus with PVCs. Patient suffered a right MCA territory cerebrovascular accident 08/05/2022. Continued hypoxia noted likely secondary to aspiration. Video swallow eval pending. Remains hypertensive. Will increase topical nitrates to 1 inch every 6 hours. Add Lasix 20 mg IV daily. Resume oral antihypertensive medications when able. Supplement potassium as needed. Admission and Anticipated Discharge Date Admission Date: August 04, 2022 Subjective Patient seen examined at the bedside. Left-sided weakness and neglect unchanged. Blood pressure remains elevated. Oxygen saturation 90% on 8 L through a Ventimask. Answers some questions yes or known. Remains mildly lethargic. Review of Systems Review of Systems: All systems reviewed & are unremarkable except as noted in Subjective Physical Exam Constitutional: + ill appearing; no acute distress Respiratory: no respiratory distress and no labored breathing Auscultation: + rhonchi (Bilateral, scattered); no crackles, no rales and no wheezes Cardiovascular: Rate/Rhythm: regular rate and regular rhythm Heart Sounds: normal S1 and normal S2; no murmur Vessels: radial pulses present; no JVD and no carotid bruit Gastrointestinal (Abdomen): Inspection/Auscultation: abdomen normal to inspection and normal bowel sounds; abdomen not distended Percussion/Palpation: abdomen soft; abdomen nontender, no guarding and abdomen not rigid Neurologic: + focal motor deficit (Left-sided weakness, left-sided neglect) Motor/Sensory: no tremor Results & Data ([facility]) Vital Signs (Past 12 Hours) Vital Signs Temp Pulse Pulse Resp BP BP Pulse Ox 08/08/22 07:28 36.3 C L 74 18 164/68 H 90 08/08/22 05:28 78 172/79 H 08/08/22 02:36 36.6 C 80 18 158/53 H 95 08/08/22 00:00 81 08/08/22 00:02 89 159/75 H O2 Del Method O2 Flow Rate 08/08/22 07:28 Oxymask 8 08/08/22 05:28 08/08/22 02:36 Oxymask 9 08/08/22 00:00 08/08/22 00:02
[2022-08-08] MEDS ORDERED: ALBUTEROL 0.5% NEB SOLN 2.5 MG/0.5 ML VIAL NEB STA (11:44)
[2022-08-08] MEDS: FUROSEMIDE INJ 20 MG/2 ML VIAL IV SCH (11:51)
--- NOTE | 2022-08-08 12:24 | Pulmonary Consultation ---
Date of Consultation August 08, 2022 Assessment & Plan (1) Aspiration into airway: (2) Acute respiratory failure with hypoxia: (3) Pleural effusion: Plan Chest x-ray 08/07/2022: Portable film, right lower lobe infiltrate. Left costophrenic and cardiophrenic angles are clean, small right-sided pleural effusion. No clear lung infiltrate -- Acute respiratory failure with hypoxia Etiology is likely aspiration Patient has poor cough effort Continue with O2 supplementation to keep ox saturation between 90-92% Patient will benefit from BiPAP but it will be contraindicated given the patient is not able to take the mask off and is not able to clear his secretions --Right-sided pleural effusion Patient is also getting right-sided pleural effusion likely from EF 25 to 30% Plan: Chest x-ray from today shows worsening in the right lower lobe infiltrate I will also order Doppler bilateral lower extremity to rule out DVT Patient will benefit from CoughAssist. Nebulized hypertonic saline Case was discussed with RN and RT at bedside Please note the above document was generated using voice recognition software. It may contain grammatical, syntax or spelling errors.Any formal questions or co ncerns about the content, text or information contained within the body of this dictation should be directly addressed to the provider for clarification. History of Present Illness Attending Physician: Matt Rodriguez MD History of Present Illness 72-year-old male admitted to the hospital for acute right middle cerebral artery stroke Past medical history: Coronary artery disease s/p CABG, hypertension Pulmonary consulted for hypoxia At the time of examination patient was on 40 L, 100% high flow saturating 93-94% He was in respiratory distress Unfortunately he is nonverbal He was trying to answer a few questions by nodding his head yes and no Denied any headache, no nausea vomiting Denies any abdominal pain He does have cough but is not able to bring it up. Has been afebrile. Allergies Allergy/AdvReac Type Severity Reaction Status Date / Time No Known Allergies Allergy Verified 08/04/22 15:02 Home Medications Medication Instructions Recorded Confirmed Type No Known Home Medications 08/04/22 08/04/22 History Patient History Medical History HTN (hypertension) No pertinent family history Surgical History No pertinent past surgical history Social History Smoking Status: Current every day smoker Tobacco Type: Cigarettes Cigarettes Per Day: 5; Tobacco Cessation Education Requested by Patient: No Hx Alcohol Use: No Hx Substance Use: Yes Last Used Substance: Days (ago) Preferred Language: Maltese Communication Ability: Effective Cigar Maker Required: No Beliefs That Will Affect Care: None Current Living Situation: Spouse Other Information That Helps Us Care for You: No Feels Safe at Home: Yes Safety Concerns: Feels Safe At This Time Assistive Devices: Cane and Glasses Review of Systems Review of Systems: All systems reviewed & are unremarkable except as noted in HPI & below Physical Exam Physical Exam: Constitutional: In respiratory distress HEENT: EOMI, PERRLA Respiratory system: Decreased air entry bilaterally, more decreased on the right side, no wheeze, no rhonchi, positive crackles bilateral lower lobes CVS: S1-S2 positive, no murmurs or gallops Abdomen: Soft, nontender, nondistended, positive bowel sounds x4 Extremities: +2 pulses bilaterally radialis/ dorsalis pedis, no cyanosis, no edema Neuro: Awake alert, left lower extremity 2 out of 5, left upper extremity 3 out of 5, right upper and right lower extremity 5 out of 5, following simple c ommands Psych: Mood and affect G/U: Positive [place] Skin: no rashes, warm and dry Lymphatic: no cervical or axillary lymphadenopathy Results & Data Results & Data ([facility]) Vital Signs (Past 12 Hours) Vital Signs Temp Pulse Pulse Resp BP BP Pulse Ox 08/08/22 12:06 36.6 C 96 H 16 171/77 H 90 08/08/22 11:40 96 H 171/77 H 08/08/22 07:28 36.3 C L 74 18 164/68 H 90 08/08/22 05:28 78 172/79 H 08/08/22 02:36 36.6 C 80 18 158/53 H 95 O2 Del Method O2 Flow Rate 08/08/22 12:06 Non-rebreather 15 08/08/22 11:40 08/08/22 07:28 Oxymask 8 08/08/22 05:28 08/08/22 02:36 Oxymask 9 Laboratory Results 08/08/22 05:36 08/08/22 05:36 PG Care Time/CCT Total # of Minutes Spent Total Time Spent with Patient: Total time spent is greater than 50% in coordination of care (as documented) at patient's floor/unit and/or counseling patient: Coding Level of Care Code 43027 Initial Inpt Care Lvl 3 Diagnoses Aspiration into airway T17.908A Acute respiratory failure with hypoxia J96.01 Pleural effusion J90
--- NOTE | 2022-08-08 12:50 | Pharmacy Report ---
- Date of Service August 08, 2022 - Pharmacy CVA/TIA Medication Review Medications to Prevent Stroke handout has been added to the patients discharge packet. Antiplatelet(s) * Aspirin 300 mg UT daily. Plans noted to change to aspirin and clopidogrel when taking po. Cholesterol * High intensity statin not ordered. Discussed w Dr. Rodriguez - patient NPO and refusing NGT. Plans to start when able. Discussed utilization of high- intensity statin if appropriate, or documenting rationale for avoidance if not utilized DVT Prophylaxis * SCD thigh Therapeutic Anticoagulation * No history of Afib/Aflutter noted Type 2 Diabetes * Patient does not have T2DM
--- NOTE | 2022-08-08 13:45 | Hospitalist Progress Note ---
Date of Service August 08, 2022 Assessment & Plan (1) Acute right MCA stroke: Plan: Noted to be acutely flaccid on the left side with eyes deviated to the right and not being able to take pills at around 8:20 PM 08/05/2022 CT of the head revealed moderate sized acute right MCA territorial infarct with right internal carotid artery obstruction and high-grade stenosis of the right vertebral artery [place] neurologist consulted and will be evaluated by local neurologist Has been getting aspirin and statin Clinically stable this morning with left hemiparesis upper extremity more than the lower extremity MRI has been pending Speech evaluation will be done Remains stable and has minimal power involving the left upper extremity Blood pressure remains on the upper side at 161/80 Clinically worse today. Failed swallowing evaluation. We will put cresafe NGT for nutrition and medications We will start aspirin and statin and other medication through the coresafe tube Prognosis remains poor Discussed with the family members for possible DNR down the line Possible aspiration pneumonia Acute respiratory failure with hypoxia-likely secondary to CHF, complicated by aspiration pneumonia Worsening respiratory failure with increasing CHF and effusion May have right lower lobe infiltration-secondary to aspiration We will continue current antibiotic Pulmonary evaluation (2) Hypertensive urgency: Plan: Known to have high blood pressure but not been taking any medication for the last 4 years Blood pressure is very high in the emergency room Will give intravenous labetalol and also beta-yaya Later on lisinopril added to control the blood pressure and also received another dose of intravenous labetalol Appreciate cardiology input and recommendation Blood pressure remains on the upper side at 154/83 Oral metoprolol 25 mg twice daily has been added and IV metoprolol has been changed to as needed We will monitor while in the hospital Medications will be applied as per conductor freight to control the blood pressure Possible atrial fibrillation has been ruled out Patient is started on intravenous heparin which has been discontinued subsequently An irregular cardiac rhythm noted on presentation, initially felt to be atrial fibrillation. Per my personal review of the EKG and his telemetry, I believe the patient has had sinus rhythm with frequent supraventricular and ventricular ectopy. Remains in sinus rhythm and rate is controlled Significant leukocytosis UA has been negative and chest x-ray does not have any florid pneumonia Has been getting intravenous ceftriaxone and doxycycline for possible pneumonia We will monitor CBC and PRP We will continue current antibiotic (3) CHF (congestive heart failure): Plan: Chest x-ray showed mild congestion Examination is typical for CHF with bilateral crackles more on the right side Doubt any infection Will give Lasix and monitor intake output ECHO-sinus rhythm with frequent ectopy present during echocardiogram, mild concentric LVH, severe global hypokinesis of the left ventricle, systolic function is severely reduced with EF of 25 to 30% and grade 1 diastolic dysfunction. Compared with the report of the outpatient study performed on 01/20/2012 the LVEF was 40 to 45% at the time. Requiring more oxygen and respiratory findings compatible with CHF Will give IV Lasix of 40 mg Requiring more oxygen-received another dose of 20 mg of Lasix intravenously (4) Recurrent falls: Plan: Has been complaining of weakness for a while Worse since Monday last with falls x2 this morning without any significant injury No signs and/or symptoms of stroke CT scan of the head is negative No fractures identified We will get PT and OT evaluation (5) CAD (coronary artery disease) of bypass graft: Plan: History of CAD status post bypass:From Cardiology note:The patient's cardiac history dates back to 2011 when he presented to the with complaints of chest discomfort and exertional shortness of breath of 3 months duration. He was diagnosed with a non-ST segment elevation myocardial infarction and underwent cardiac catheterization revealing a 100% occlusion of the proximal LAD with left to left collaterals from the circumflex coronary artery, no significant obstructive disease was noted in the circumflex obtuse marginal system, and a 90% right coronary artery stenosis was present. The patient went on to have off-pump CABG x2 performed 11/18/2011 receiving BRENNAN to LAD, and SVG to PDA, performed by Dr. Crawford. Troponin is mildly elevated and will cycle troponin Doubt any ACS for now Elevated troponin could be due to a strained and CHF Aspirin, metoprolol and lisinopril have been started Medications have been changed through appropriate route (6) Elevated troponin: Plan: Troponin is mildly elevated Will cycle troponin-no ACS DVT prophylaxis Subcu Lovenox CODE STATUS Full Discussed with the and the son in detail Prognosis remains poor Discussed with the family members in detail today who will consider DNR/DNI for the patient down the line Admission and Anticipated Discharge Date Admission Date: August 04, 2022 Subjective 08/05/2022 The patient was seen and examined in telemetry unit He remains very weak and lethargic and does not want to talk much Weakness has been going on for a few months and got worse recently Not in any acute distress and denies any significant symptoms 08/06/2022 The patient was seen and examined in telemetry unit Unfortunately has had a stroke last evening and there was diagnosed around 8:20 PM He has been weak and lethargic since admission and noted to have deviated eyes to the right and left-sided profuse weakness Scans revealed acute stroke Remains stable this morning and is following commands and moving left upper extremity a little Denies any other significant symptoms 08/07/2022 The patient was seen and examined in telemetry unit He has been stable and trying to communicate Requiring 7 L of oxygen to maintain saturation Moderate shortness of breath at rest 08/08/2022 The patient was seen and examined in telemetry unit His condition has deteriorated He has been requiring 100% nonrebreather to maintain saturation Remains very lethargic and minimally communicative Has been removing the left side especially left upper extremity Review of Systems Review of Systems: Unobtainable due to cognitive status Physical Exam Physical Exam: Lying in bed obtunded Constitutional: + acute distress (Shortness of breath), + ill appearing and average body habitus Eyes: PERRL, conjunctivae normal, anicteric sclerae ENMT: external ear and nose normal, oropharynx normal Neck: trachea midline, no thyromegaly Respiratory: + respiratory distress (Moderate to severe shortness of breath), + labored breathing and + uses accessory muscles Auscultation: + diminished lung sounds, + crackles (Coarse crackles bilaterally), + rales and + wheezes Cardiovascular: Rate/Rhythm: regular rate, regular rhythm and + irregularly irregular; not tachycardic Heart Sounds: normal S1 and normal S2; no murmur Extremities: no edema Gastrointestinal (Abdomen): Inspection/Auscultation: normal bowel sounds; abdomen not distended Percussion/Palpation: abdomen soft; abdomen nontender Neurologic: awake (Minimally awake) and + confused; + does not move all extremities (Moves right upper extremity and lower extremities with touch.Not movingLUE) Lymphatic: no cervical or axillary lymphadenopathy Results & Data Results & Data ([facility]) Vital Signs (Past 12 Hours) Vital Signs Temp Pulse Pulse Resp BP BP Pulse Ox 08/08/22 13:06 92 H 24 90 08/08/22 12:06 36.6 C 96 H 16 171/77 H 90 08/08/22 11:40 96 H 171/77 H 08/08/22 07:28 36.3 C L 74 18 164/68 H 90 08/08/22 05:28 78 172/79 H 08/08/22 02:36 36.6 C 80 18 158/53 H 95 O2 Del Method O2 Flow Rate FiO2 08/08/22 13:06 High Flow Nasal Cannula 40 100 08/08/22 12:06 Non-rebreather 15 08/08/22 11:40 08/08/22 07:28 Oxymask 8 08/08/22 05:28 08/08/22 02:36 Oxymask 9 Laboratory Results Short CBC 08/08/22 Range/Units 05:36 WBC 12.89 H (4.8-10.8) K/ul Hgb 13.2 L (14.0-18.0) g/dl Hct 38.7 L (40.1-51.0) % Plt Count 272 (130-400) K/uL BMP 08/08/22 05:36 Sodium 143 Potassium 3.1 L Chloride 111 H Carbon Dioxide 22 BUN 28 H Creatinine 0.90 D Glucose 93 Calcium 8.7 Medications Administered Current Inpatient Medications Aspirin (Aspirin 81 Mg Ectab) 81 mg PO QAM [facility] Stop: 09/04/22 12:29 Last Admin: 08/05/22 12:47 Dose: 81 mg Aspirin (Aspirin 300 Mg Supp) 300 mg NV DAILY [facility]O Stop: 09/05/22 08:59 Last Admin: 08/08/22 08:14 Dose: 300 mg Enoxaparin Sodium (Enoxaparin Inj 40 Mg/0.4 Ml Syr) 40 mg SQ QAM [facility] Stop: 09/05/22 08:59 Furosemide (Furosemide Inj 20 Mg/2 Ml Vial) 20 mg IV DAILY [facility]BERTO Stop: 09/07/22 11:29 Last Admin: 08/08/22 11:51 Dose: 20 mg Ceftriaxone Sodium 1,000 mg/ (Dextrose) 60 mls @ 100 mls/hr IV Q24H [facility]; Protocol Stop: 08/13/22 08:59 Last Infusion: 08/08/22 10:20 Dose: Infused Doxycycline Hyclate 100 mg/ (Dextrose) 110 mls @ 50 mls/hr IV Q12H [facility] Stop: 08/13/22 08:59 Last Infusion: 08/08/22 12:48 Dose: Infused Lisinopril (Lisinopril 5 Mg Tab) 5 mg PO QAM [facility] Stop: 09/04/22 08:59 Last Admin: 08/08/22 10:14 Dose: Not Given Metoprolol Tartrate (Metoprolol Tartrate 25 Mg Tab) 25 mg PO BID [facility] Stop: 09/04/22 20:59 Last Admin: 08/06/22 09:28 Dose: Not Given Metoprolol Tartrate (Metoprolol Tartrate 1 Mg/Ml Vial) 5 mg IV Q6 [facility] Stop: 09/05/22 11:59 Last Admin: 08/08/22 11:40 Dose: 5 mg Miscellaneous Information (Pharmacist Discharge Med Rec Consult) 1 each N/A UD PRN PRN Reason: Consult Stop: 09/04/22 23:44 Nitroglycerin (Nitroglycerin 2% Ointment 30gm Tube) 1 inch EXT Q6 [facility] Stop: 09/07/22 11:18 Last Admin: 08/08/22 12:12 Dose: 1 inch
--- NOTE | 2022-08-08 14:54 | XRay Report ---
XR chest 1V portable CLINICAL HISTORY: Severe shortness of breath. COMPARISON STUDY: Chest radiograph August 07, 2022. FINDINGS: There is no pneumothorax. Median sternotomy wires are noted. Cardiomegaly is unchanged. The re is pulmonary vascular congestion. A small right pleural effusion has increased in size. Right basi lar opacity has increased. There is minimal left basilar opacity. IMPRESSION: 1. Increase in right basilar opacity which could reflect pneumonia or atelectasis. Mild left basilar opacity. 2. Increase in size of a small right pleural effusion. 3. Cardiomegaly. Pulmonary vascular congestion without overt pulmonary edema. ACT 112: Negative or not required by law. Electronically signed by: Lefty Garcia M.D. 08/08/2022 2:52 PM
[2022-08-08] MEDS: FIBERSOURCE HN 1.2 CAL 1000 ML BAG NG SCH (17:38)
[2022-08-08] MEDS: TUBE FEEDING WATER FLUSH GT SCH ×2 (17:38→19:56)
[2022-08-08] MEDS: SODIUM CHLOR 7% 4 ML NEB NEB SCH (17:45)
[2022-08-08] MEDS ORDERED: FUROSEMIDE 40 MG/4 ML VIAL IV ONE (18:46)
[2022-08-09] MEDS: METOPROLOL TARTRATE 1 MG/ML VIAL IV SCH ×4 (00:24→17:46)
[2022-08-09] MEDS: NITROGLYCERIN 2% OINTMENT 30GM TUBE EXT SCH ×4 (00:25→17:43)
[2022-08-09] MEDS: TUBE FEEDING WATER FLUSH GT SCH ×6 (00:44→19:53)
[2022-08-09] MEDS: SODIUM CHLOR 7% 4 ML NEB NEB SCH ×2 (05:31→18:04)
[2022-08-09 06:18] LABS: Basophils # (auto) 0.06 K/uL (0-0.2); Basophils % (auto) 0.3 %; Hematocrit (blood only) 41.3 % (40.1-51.0); Hemoglobin 14.2 g/dl (14.0-18.0); Immature Granulocytes # (auto) 0.21 K/uL (0.00-0.02); Immature Granulocytes % (auto) 1.2 %; Lymphocytes % (auto) 10.8 %; Mean Corpuscular Hemoglobin 31.6 pg (25.0-34.0); Mean Corpuscular Hgb Conc 34.4 g/dL (32.0-36.0); Mean Corpuscular Volume 91.8 fL (80.0-100.0); Mean Platelet Volume 10.2 fL (9.4-12.4); Monocytes # (auto) 1.66 K/uL (0.24-0.82); Monocytes % (auto) 9.4 %; Neutrophils # (auto) 13.77 K/uL (1.4-6.5); Neutrophils % (auto) 78.3 %; Platelet Count 313 K/uL (130-400); RDW Coefficient of Variation 13.7 % (11.5-14.5); RDW Standard Deviation 46.5 fL (36.4-46.3)
--- NOTE | 2022-08-09 06:44 | Ultrasound Report ---
BILATERAL LOWER EXTREMITY VENOUS DOPPLER HISTORY: Acute pain and swelling of the right lower extremity Rule out DVT COMPARISON STUDY: None. FINDINGS: There is normal compressibility, flow, and augmentation within the bilateral lower extremit y deep venous systems. Limited exam secondary to patient condition. Areas of slow venous flow are inc identally noted in the common femoral and superficial femoral veins. IMPRESSION: No DVT within the right or left lower extremity. ACT 112: Negative or not required by law. Electronically signed by: Davis Villagran M.D. 08/09/2022 6:43 AM
[2022-08-09 06:46] LABS: BUN Creatinine Ratio 31.5 (10-20); Creatinine Clr Calc Pharmacy 52.2 ml/min; Est GFR (African American) 67.4 ml/min; Est GFR (Non-African American) 58.1 ml/min; Magnesium 2.7 mg/dl (1.7-2.4); Potassium 3.4 mmol/L (3.5-5.1)
[2022-08-09] MEDS: FUROSEMIDE INJ 20 MG/2 ML VIAL IV SCH (08:18)
[2022-08-09] MEDS: DOXYCYCLINE HYCLATE 100 MG in DEXTROSE 5% 100 ML IV SCH (08:18)
[2022-08-09] MEDS: cefTRIAXone SODIUM 1,000 MG in DEXTROSE 5% 50 ML IV SCH (08:20)
[2022-08-09] MEDS: lisinopril 5 MG TAB PO SCH (08:24)
[2022-08-09] MEDS: ASPIRIN 300 MG SUPP PR SCH (10:06)
[2022-08-09] MEDS: SODIUM CHLORIDE 0.9% 500 ML IV SCH ×2 (11:20→18:42)
[2022-08-09] MEDS ORDERED: OPTIRAY 320 500ml IV ONE (12:13)
--- NOTE | 2022-08-09 12:23 | Pulmonology Progress Note ---
Date of Service August 09, 2022 Assessment & Plan (1) Aspiration into airway: (2) Acute respiratory failure with hypoxia: (3) Pleural effusion: (4) Acute pulmonary embolism: Plan Chest x-ray 08/07/2022: Portable film, right lower lobe infiltrate. Left costophrenic and cardiophrenic angles are clean, small right-sided pleural effusion. No clear lung infiltrate CT chest 08/09/2022 personally reviewed: No clear large pulmonary emboli, subsegmental upper lobe pulmonary emboli Minimal mucus plugging in the RBI with dependent atelectasis bilateral lower lobes No pleural effusion No significant mediastinal lymphadenopathy -- Acute respiratory failure with hypoxia Etiology is likely aspiration Patient has poor cough effort Continue with O2 supplementation to keep ox saturation between 90-92% Patient will benefit from BiPAP but it will be contraindicated given the patient is not able to take the mask off and is not able to clear his secretions Patient's VQ match is significant. Doppler negative for DVT, CTA shows subsegmental bilateral upper lobe pulmonary emboli --Right-sided pleural effusion Patient is also getting right-sided pleural effusion likely from EF 25 to 30% -- Subsegmental pulmonary emboli bilateral upper lobes We will start the patient on heparin drip Plan: Continue with CoughAssist along with nebulized hypertonic saline The small subsegmental pulmonary emboli does not explain the degree of hypoxia which the patient has. Will do bubble study. Case was discussed with Family at bedside Please note the above document was generated using voice recognition software. It may contain grammatical, syntax or spelling errors.Any formal questions or concerns about the content, text or information contained within the body of this dictation should be directly addressed to the provider for clarification. Admission and Anticipated Discharge Date Admission Date: August 04, 2022 Subjective Patient seen and examined at bedside. No acute distress, no adverse events overnight He was saturating 91% on 40 L, 100% high flow He was more alert today. Interestingly he was not in respiratory distress Denied any headache, no nausea or vomiting Review of Systems Review of Systems: All systems reviewed & are unremarkable except as noted in Subjective Physical Exam Physical Exam: Constitutional: In respiratory distress HEENT: EOMI, PERRLA Respiratory system: Decreased air entry bilaterally, more decreased on the right side, no wheeze, no rhonchi, positive crackles bilateral lower lobes CVS: S1-S2 positive, no murmurs or gallops Abdomen: Soft, nontender, nondistended, positive bowel sounds x4 Extremities: +2 pulses bilaterally radialis/ dorsalis pedis, no cyanosis, no edema Neuro: Awake alert, left lower extremity 2 out of 5, left upper extremity 3 out of 5, right upper and right lower extremity 5 out of 5, following simple commands Psych: Flat mood and affect G/U: Positive [place] Skin: no rashes, warm and dry Lymphatic: no cervical or axillary lymphadenopathy Results & Data Results & Data ([facility]) Vital Signs (Past 12 Hours) Vital Signs Temp Pulse Pulse Pulse Resp BP BP 08/09/22 07:30 08/09/22 07:30 64 08/09/22 11:23 101 H 169/76 H 08/09/22 11:18 36.5 C 101 H 18 169/76 H 08/09/22 11:10 77 19 08/09/22 07:22 36.4 C L 61 16 152/97 H 08/09/22 05:33 68 28 H 08/09/22 02:55 80 24 08/09/22 05:23 78 167/82 H 08/09/22 02:15 36.8 C 69 22 128/75 08/09/22 00:24 94 H 144/91 H Pulse Ox O2 Del Method O2 Flow Rate FiO2 08/09/22 07:30 High Flow Nasal Cannula 40 100 08/09/22 07:30 08/09/22 11:23 08/09/22 11:18 91 High Flow Nasal Cannula 40 100 08/09/22 11:10 92 High Flow Nasal Cannula 40 100 08/09/22 07:22 97 High Flow Nasal Cannula 40 100 08/09/22 05:33 96 High Flow Nasal Cannula 40 100 08/09/22 02:55 98 High Flow Nasal Cannula 40 100 08/09/22 05:23 08/09/22 02:15 96 High Flow Nasal Cannula 40 100 08/09/22 00:24 Laboratory Results 08/09/22 06:03 08/09/22 06:03 PG Care Time/CCT Total # of Minutes Spent Total Time Spent with Patient: Total time spent is greater than 50% in coordination of care (as documented) at patient's floor/unit and/or counseling patient: Coding Level of Care Code 92604 Subseq Hosp Care Lvl 2 Diagnoses Aspiration into airway T17.908A Acute respiratory failure with hypoxia J96.01 Pleural effusion J90 Acute pulmonary embolism I26.99
--- NOTE | 2022-08-09 14:20 | CT Scan Report ---
CHEST CTA for PULMONARY ARTERIES CT DOSE: 427.86 mGy.cm HISTORY: Shortness of breath. R/O PE TECHNIQUE: Multiaxial CT images of the chest were performed following the intravenous administration of contrast to evaluate the pulmonary arteries. Maximal intensity projection images were also obtaine d. A dose lowering technique was utilized adhering to the principles of ALARA. COMPARISON STUDY: Abdomen and pelvis CT 08/04/2022. FINDINGS: Partially visualized abdominal aortic aneurysm is again noted. This is better assessed on t he recent abdomen and pelvis CT. Mild atherosclerotic plaque within the normal caliber thoracic aorta . No evidence for an aortic dissection. There are few scattered filling defects seen within the subse gmental pulmonary arteries of the bilateral upper lobes. These are consistent with pulmonary emboli. The main and lobar pulmonary arteries are patent. No mediastinal or hilar lymphadenopathy. The heart is normal in size. No pleural or pericardial effusions. Normal esophagus. No fractures within the vis ualized osseous structures. There are poststernotomy changes. No pneumothorax. Small amount of mucoid material within the trachea and mainstem bronchi. There is near complete opacification of the bronch us intermedius and bilateral lower lobe bronchi. There is dense consolidation within the bilateral lo wer lobes posteriorly and scattered tree-in-bud nodular opacities within the remaining lower lobes an d right middle lobe. Findings likely represent an aspiration pneumonitis. No evidence for pulmonary e tim. The visualized liver and spleen are unremarkable. Bilateral adrenal gland nodules remain unchan ged. IMPRESSION: 1. A few scattered subsegmental pulmonary emboli seen within the bilateral upper lobes. 2. There is near complete opacification of the bronchus intermedius and bilateral lower lobe bronchi. There is dense consolidation within the bilateral lower lobes posteriorly and scattered tree-in-bud nodular opacities within the remaining lower lobes and right middle lobe. Findings likely represent a n aspiration pneumonitis. 3. Partially visualized abdominal aortic aneurysm again noted. ACT 112: Negative or not required by law. Electronically signed by: Rasheed Villavicencio M.D. 08/09/2022 2:19 PM
[2022-08-09] MEDS: FIBERSOURCE HN 1.2 CAL 1000 ML BAG NG SCH (14:29)
--- NOTE | 2022-08-09 14:58 | Cardiology Progress Note ---
Date of Service August 09, 2022 Assessment & Plan (1) Acute right MCA stroke: (2) Hypoxia: (3) Aspiration into airway: (4) Carotid stenosis, symptomatic, with infarction: (5) Left ventricular systolic dysfunction: (6) AAA (abdominal aortic aneurysm): (7) CAD (coronary artery disease) of bypass graft: Plan 72-year-old patient admitted with hypertensive urgency and concerns regarding irregular rhythm. Sinus rhythm with PACs on telemetry. No evidence of atrial fibrillation. Patient suffered a right MCA territory cerebrovascular accident 08/05/2022. Continued hypoxia noted secondary to aspiration. Continue IV metoprolol, topical nitrates, and IV furosemide for blood pressure management at this time. Resume oral antihypertensive medications when able. Supplement potassium as needed. Admission and Anticipated Discharge Date Admission Date: August 04, 2022 Subjective Patient seen examined at the bedside. Fluid balance -900 cc. Remains hypoxic. More alert today. Blood pressure remains elevated. N.p.o. secondary to aspiration. Review of Systems Review of Systems: All systems reviewed & are unremarkable except as noted in Subjective Physical Exam Constitutional: + ill appearing; no acute distress Respiratory: no respiratory distress and no labored breathing Auscultation: + rhonchi (Bilateral, scattered); no crackles, no rales and no wheezes Cardiovascular: Rate/Rhythm: regular rate and regular rhythm Heart Sounds: normal S1 and normal S2; no murmur Vessels: radial pulses present; no JVD and no carotid bruit Gastrointestinal (Abdomen): Inspection/Auscultation: abdomen normal to inspection and normal bowel sounds; abdomen not distended Percussion/Palpation: abdomen soft; abdomen nontender, no guarding and abdomen not rigid Neurologic: + focal motor deficit (Left-sided weakness, left-sided neglect) Motor/Sensory: no tremor Results & Data ([facility]) Vital Signs (Past 12 Hours) Vital Signs Temp Pulse Pulse Pulse Resp BP BP 08/09/22 14:32 77 18 08/09/22 12:37 08/09/22 07:30 08/09/22 07:30 64 08/09/22 11:23 101 H 169/76 H 08/09/22 11:18 36.5 C 101 H 18 169/76 H 08/09/22 11:10 77 19 08/09/22 07:22 36.4 C L 61 16 152/97 H 08/09/22 05:33 68 28 H 08/09/22 05:23 78 167/82 H Pulse Ox O2 Del Method O2 Flow Rate FiO2 08/09/22 14:32 93 High Flow Nasal Cannula 40 100 08/09/22 12:37 94 100 08/09/22 07:30 High Flow Nasal Cannula 40 100 08/09/22 07:30 08/09/22 11:23 08/09/22 11:18 91 High Flow Nasal Cannula 40 100 08/09/22 11:10 92 High Flow Nasal Cannula 40 100 08/09/22 07:22 97 High Flow Nasal Cannula 40 100 08/09/22 05:33 96 High Flow Nasal Cannula 40 100 08/09/22 05:23
--- NOTE | 2022-08-09 15:14 | Hospitalist Progress Note ---
Date of Service August 09, 2022 Assessment & Plan (1) Acute right MCA stroke: Plan: Noted to be acutely flaccid on the left side with eyes deviated to the right and not being able to take pills at around 8:20 PM 08/05/2022 CT of the head revealed moderate sized acute right MCA territorial infarct with right internal carotid artery obstruction and high-grade stenosis of the right vertebral artery [place] neurologist consulted and will be evaluated by local neurologist Has been getting aspirin and statin Clinically stable this morning with left hemiparesis upper extremity more than the lower extremity MRI has been pending Speech evaluation will be done Remains stable and has minimal power involving the left upper extremity Blood pressure remains on the upper side at 161/80 Clinically worse today. Failed swallowing evaluation. We will put cresafe NGT for nutrition and medications We will start aspirin and statin and other medication through the coresafe tube Prognosis remains poor Slightly better today, tries to communicate and has been moving left upper extremity Was agreeable to have NG tube feeding Speech reevaluated and he started oral food Possible aspiration pneumonia Acute respiratory failure with hypoxia-likely secondary to CHF, complicated by aspiration pneumonia Worsening respiratory failure with increasing CHF and effusion May have right lower lobe infiltration-secondary to aspiration We will continue current antibiotic Pulmonary evaluation-appreciate input and recommendation Acute respiratory failure with hypoxia Has been requiring 100% FiO2 to maintain saturation Chest x-ray shows mild CHF Ultrasound of the legs was negative for any DVT and CTA did not show any pulmonary embolism Discussed about having limited echo with bubble study with the mass spectroscopist-we will hold off for now We will continue current management (2) Hypertensive urgency: Plan: Known to have high blood pressure but not been taking any medication for the last 4 years Blood pressure is very high in the emergency room Will give intravenous labetalol and also beta-yaya Later on lisinopril added to control the blood pressure and also received another dose of intravenous labetalol Appreciate cardiology input and recommendation Blood pressure remains on the upper side at 154/83 Oral metoprolol 25 mg twice daily has been added and IV metoprolol has been changed to as needed We will monitor while in the hospital Medications will be applied as per mass spectroscopist to control the blood pressure Possible atrial fibrillation has been ruled out Patient is started on intravenous heparin which has been discontinued subsequently An irregular cardiac rhythm noted on presentation, initially felt to be atrial fibrillation. Per my personal review of the EKG and his telemetry, I believe the patient has had sinus rhythm with frequent supraventricular and ventricular ectopy. Remains in sinus rhythm and rate is controlled Significant leukocytosis UA has been negative and chest x-ray does not have any florid pneumonia Has been getting intravenous ceftriaxone and doxycycline for possible pneumonia We will monitor CBC and PRP We will continue current antibiotic (3) CHF (congestive heart failure): Plan: Chest x-ray showed mild congestion Examination is typical for CHF with bilateral crackles more on the right side Doubt any infection Will give Lasix and monitor intake output ECHO-sinus rhythm with frequent ectopy present during echocardiogram, mild concentric LVH, severe global hypokinesis of the left ventricle, systolic function is severely reduced with EF of 25 to 30% and grade 1 diastolic dysfunction. Compared with the report of the outpatient study performed on 01/20/2012 the LVEF was 40 to 45% at the time. Requiring more oxygen and respiratory findings compatible with CHF Will give IV Lasix of 40 mg Requiring more oxygen-received another dose of 20 mg of Lasix intravenously (4) Recurrent falls: Plan: Has been complaining of weakness for a while Worse since Monday last with falls x2 this morning without any significant i njury No signs and/or symptoms of stroke CT scan of the head is negative No fractures identified We will get PT and OT evaluation (5) CAD (coronary artery disease) of bypass graft: Plan: History of CAD status post bypass:From Cardiology note:The patient's cardiac history dates back to 2011 when he presented to the [facility] with complaints of chest discomfort and exertional shortness of breath of 3 months duration. He was diagnosed with a non-ST segment elevation myocardial infarction and underwent cardiac catheterization revealing a 100% occlusion of the proximal LAD with left to left collaterals from the circumflex coronary artery, no significant obstructive disease was noted in the circumflex obtuse marginal system, and a 90% right coronary artery stenosis was present. The patient went on to have off-pump CABG x2 performed 11/18/2011 receiving BRENNAN to LAD, and SVG to PDA, performed by Dr. Crawford. Troponin is mildly elevated and will cycle troponin Doubt any ACS for now Elevated troponin could be due to a strained and CHF Aspirin, metoprolol and lisinopril have been started Medications have been changed through appropriate route (6) Elevated troponin: Plan: Troponin is mildly elevated Will cycle troponin-no ACS DVT prophylaxis Subcu Lovenox CODE STATUS Full Discussed with the and the son in detail Prognosis remains poor We will discussed with the again today Admission and Anticipated Discharge Date Admission Date: August 04, 2022 Subjective 08/05/2022 The patient was seen and examined in telemetry unit He remains very weak and lethargic and does not want to talk much Weakness has been going on for a few months and got worse recently Not in any acute distress and denies any significant symptoms 08/06/2022 The patient was seen and examined in telemetry unit Unfortunately has had a stroke last evening and there was diagnosed around 8:20 PM He has been weak and lethargic since admission and noted to have deviated eyes to the right and left-sided profuse weakness Scans revealed acute stroke Remains stable this morning and is following commands and moving left upper extremity a little Denies any other significant symptoms 08/07/2022 The patient was seen and examined in telemetry unit He has been stable and trying to communicate Requiring 7 L of oxygen to maintain saturation Moderate shortness of breath at rest 08/08/2022 The patient was seen and examined in telemetry unit His condition has deteriorated He has been requiring 100% nonrebreather to maintain saturation Remains very lethargic and minimally communicative Has been removing the left side especially left upper extremity 08/09/2022 The patient was seen and examined in telemetry unit He has been a little bit better today Has moderate to severe shortness of breath at rest and requiring FiO2 100% to maintain saturation Try to communicate Remains extremely lethargic Review of Systems Review of Systems: Unobtainable due to cognitive status Physical Exam Physical Exam: Lying in bed obtunded Constitutional: + acute distress (Shortness of breath), + ill appearing and average body habitus Eyes: PERRL, conjunctivae normal, anicteric sclerae ENMT: external ear and nose normal, oropharynx normal Neck: trachea midline, no thyromegaly Respiratory: + respiratory distress (Moderate to severe shortness of breath), + labored breathing and + uses accessory muscles Auscultation: + diminished lung sounds, + crackles (Coarse crackles bilaterally), + rales and + wheezes Cardiovascular: Rate/Rhythm: regular rate, regular rhythm and + irregularly irregular; not tachycardic Heart Sounds: normal S1 and normal S2; no murmur Extremities: no edema Gastrointestinal (Abdomen): Inspection/Auscultation: normal bowel sounds; abdomen not distended Percussion/Palpation: abdomen soft; abdomen nontender Musculoskeletal: No acute arthritis in any joint Neurologic: moves all extremities (Moving his left upper extremity and squeezes my hands), awake (Minimally awake) and + confused Lymphatic: no cervical or axillary lymphadenopathy Results & Data Results & Data ([facility]) Vital Signs (Past 12 Hours) Vital Signs Temp Pulse Pulse Pulse Resp BP BP 08/09/22 14:32 77 18 08/09/22 12:37 08/09/22 07:30 08/09/22 07:30 64 08/09/22 11:23 101 H 169/76 H 08/09/22 11:18 36.5 C 101 H 18 169/76 H 08/09/22 11:10 77 19 08/09/22 07:22 36.4 C L 61 16 152/97 H 08/09/22 05:33 68 28 H 08/09/22 05:23 78 167/82 H Pulse Ox O2 Del Method O2 Flow Rate FiO2 08/09/22 14:32 93 High Flow Nasal Cannula 40 100 08/09/22 12:37 94 100 08/09/22 07:30 High Flow Nasal Cannula 40 100 08/09/22 07:30 08/09/22 11:23 08/09/22 11:18 91 High Flow Nasal Cannula 40 100 08/09/22 11:10 92 High Flow Nasal Cannula 40 100 08/09/22 07:22 97 High Flow Nasal Cannula 40 100 08/09/22 05:33 96 High Flow Nasal Cannula 40 100 08/09/22 05:23 Laboratory Results Short CBC 08/09/22 Range/Units 06:03 WBC 17.60 H (4.8-10.8) K/ul Hgb 14.2 (14.0-18.0) g/dl Hct 41.3 (40.1-51.0) % Plt Count 313 (130-400) K/uL BMP 08/09/22 06:03 Sodium 145 Potassium 3.4 L Chloride 111 H Carbon Dioxide 23 BUN 39 H Creatinine 1.24 D Glucose 114 H Calcium 9.0 Medications Administered Current Inpatient Medications Aspirin (Aspirin 81 Mg Ectab) [facility] [place] Stop: 09/04/22 12:29 Last Admin: 08/05/22 12:47 Dose: 81 mg Aspirin (Aspirin 300 Mg Supp) 300 mg NC DAILY COUNTS INCLUDE 234 BEDS AT THE [facility] Stop: 09/05/22 08:59 Last Admin: 08/09/22 10:06 Dose: 300 mg Doxycycline Hyclate (Doxycycline Hyclate 100 Mg Cap) 100 mg PO BID COUNTS INCLUDE 234 BEDS AT THE [facility]; Protocol Stop: 08/13/22 08:59 Enoxaparin Sodium (Enoxaparin Inj 40 Mg/0.4 Ml Syr) 40 mg SQ QAM COUNTS INCLUDE 234 BEDS AT THE [facility] Stop: 09/05/22 08:59 Enteral Nutritional Formula (Fibersource Hn 1.2 Abdoul 1000 Ml Bag) 1,000 ml NG CONT COUNTS INCLUDE 234 BEDS AT THE [facility]; Protocol Stop: 09/07/22 16:29 Last Admin: 08/09/22 14:29 Dose: Not Given Furosemide (Furosemide Inj 20 Mg/2 Ml Vial) 20 mg IV DAILY COUNTS INCLUDE 234 BEDS AT THE [facility] Stop: 09/07/22 11:29 Last Admin: 08/09/22 08:18 Dose: 20 mg Ceftriaxone Sodium 1,000 mg/ (Dextrose) 60 mls @ 100 mls/hr IV Q24H COUNTS INCLUDE 234 BEDS AT THE [facility]; Protocol Stop: 08/13/22 08:59 Last Infusion: 08/09/22 10:06 Dose: Infused Sodium Chloride (Nss) 500 mls @ 80 mls/hr IV .Q6H15M COUNTS INCLUDE 234 BEDS AT THE [facility] Stop: 09/08/22 10:59 Last Admin: 08/09/22 11:20 Dose: 80 mls/hr Lisinopril (Lisinopril 5 Mg Tab) 5 mg PO QAM COUNTS INCLUDE 234 BEDS AT THE [facility] Stop: 09/04/22 08:59 Last Admin: 08/09/22 08:24 Dose: Not Given Metoprolol Tartrate (Metoprolol Tartrate 25 Mg Tab) 25 mg PO BID COUNTS INCLUDE 234 BEDS AT THE [facility] Stop: 09/04/22 20:59 Last Admin: 08/06/22 09:28 Dose: Not Given Metoprolol Tartrate (Metoprolol Tartrate 1 Mg/Ml Vial) 5 mg IV Q6 COUNTS INCLUDE 234 BEDS AT THE [facility] Stop: 09/05/22 11:59 Last Admin: 08/09/22 11:23 Dose: 5 mg Nitroglycerin (Nitroglycerin 2% Ointment 30gm Tube) 1 inch EXT Q6 COUNTS INCLUDE 234 BEDS AT THE [facility] Stop: 09/07/22 11:18 Last Admin: 08/09/22 12:34 Dose: 1 inch Sodium Chloride (Sodium Chlor 7% 4 Ml Neb) 4 ml NEB BIDR COUNTS INCLUDE 234 BEDS AT THE [facility] Stop: 09/07/22 18:59 Last Admin: 08/09/22 05:31 Dose: 4 ml Sterile Water (Tube Feeding Water Flush) 90 ml GT Q4H COUNTS INCLUDE 234 BEDS AT THE [facility] Stop: 09/07/22 16:29 Last Admin: 08/09/22 14:29 Dose: Not Given
--- NOTE | 2022-08-09 17:19 | Neurology Progress Note ---
Date of Service August 09, 2022 Assessment & Plan (1) Acute right MCA stroke: Plan: Impression: The patient was initially admitted with mental status change, frequent fall, generalized weakness, hypertensive urgency and congestive heart failure. There was no focal deficit on admission, unfortunately, the patient was noticed having left-sided weakness and right gaze preference yesterday evening, and imaging studies confirmed a right middle cerebral artery territory large acute/subacute ischemic stroke. CT angiography showed total occlusion of right internal carotid artery with additional right vertebral and left posterior cerebral artery focal severe stenosis. Left hemiparesis and hemineglect persist. Some improvement of left arm strength. Alert. P.O is started. Good progress. Recommendations: No further permissive hypertension is indicated. We should avoid hypotension. Continue aspirin 81 mg daily. Physical therapy, Occupational Therapy and speech pathology will follow. If the patient gets more stable, then he will be candidate for custodial placement with prolonged physical therapy. Lipid panel. Goal LDL <70. Treat on statin when po is comfortable. DVT prophylaxis. Will need outpatient neurology f/u. (2) Occlusion of right internal carotid artery: Plan: Impression: CT angiography showed total occlusion of right internal carotid artery, age undetermined. Recommendations: Because of total occlusion, the patient is not a candidate for vascular intervention. (3) Left ventricular systolic dysfunction: Plan: Impression: The patient presented with hypertensive urgency and congestive heart failure. Recommendations: Per cardiology. (4) Hypertensive urgency: Plan: Impression: As seen above. (5) CHF (congestive heart failure): Plan: Impression: As seen above. Cardiology is on board. (6) CAD (coronary artery disease) of bypass graft: Plan We will follow as needed. Admission and Anticipated Discharge Date Admission Date: August 04, 2022 Subjective The patient has been doing much better since my last visit. More alert and responsive. Breathing has been better. Able to eat pureed food. Communicates. Some movement in left upper extremity but due to left hemineglect, unable to use it much. Review of Systems Review of Systems: All systems reviewed & are unremarkable except as noted in Subjective Physical Exam Physical Exam: General Examination: Constitutional: Well developed person in no apparent distress. HEENT: Normal exam with inspection. CV: Hearth rhythm is regular. Neck: Supple, no carotid bruits. Lungs: Bibasilar crackles. Abdomen: Soft, non-tender, non-distended. Skin: No rash or ecchymosis. Extremities: No edema or cyanosis NEUROLOGICAL EXAMINATION: Mental Status: Alert and oriented to place, person month and year. Cranial Nerves: II-XII are intact. No nystagmus. Right gaze-preference but able to pass midline when asked. Funduscopy: Normal looking optic discs. Motor: The patient moves her right upper and lower extremities strongly. There is weakness on left upper and lower extremity, with strength around 3- out of 5. Tone: Decreased tone in left upper and lower extremities. DTRs: 1+ all. Left Babinski. Sensory: Limited examination. The patient feels pinprick in all extremities and reports no asymmetry. Left hemineglect. Coordination: No dysmetria with right FTN testing. Speech: Some dysarthria but speech is essentially fluent. Comprehension is essentially intact. Gait: Unable to assess. Musculoskeletal: Normal muscle bulk, no atrophy. Results & Data ([facility]) Vital Signs (Past 12 Hours) Vital Signs Temp Pulse Pulse Pulse Resp BP BP 08/09/22 16:27 77 08/09/22 15:07 36.6 C 92 H 18 169/53 H 08/09/22 14:32 77 18 08/09/22 12:37 08/09/22 07:30 08/09/22 07:30 64 08/09/22 11:23 101 H 169/76 H 08/09/22 11:18 36.5 C 101 H 18 169/76 H 08/09/22 11:10 77 19 08/09/22 07:22 36.4 C L 61 16 152/97 H 08/09/22 05:33 68 28 H 08/09/22 05:23 78 167/82 H Pulse Ox O2 Del Method O2 Flow Rate FiO2 08/09/22 16:27 08/09/22 15:07 88 L High Flow Nasal Cannula 40 100 08/09/22 14:32 93 High Flow Nasal Cannula 40 100 08/09/22 12:37 94 100 08/09/22 07:30 High Flow Nasal Cannula 40 100 08/09/22 07:30 08/09/22 11:23 08/09/22 11:18 91 High Flow Nasal Cannula 40 100 08/09/22 11:10 92 High Flow Nasal Cannula 40 100 08/09/22 07:22 97 High Flow Nasal Cannula 40 100 08/09/22 05:33 96 High Flow Nasal Cannula 40 100 08/09/22 05:23
[2022-08-09] MEDS ORDERED: Heparin IV Adult Wt-Based Standard *NO* Bolus Protocol IV ONE (19:23)
[2022-08-09] MEDS ORDERED: XOPENEX/ATROVENT 1.25mg/0.5MG NEB COMBO NEB STA (19:45)
--- NOTE | 2022-08-09 20:02 | XRay Report ---
XR chest 1V portable CLINICAL HISTORY: low o2 COMPARISON STUDY: Chest radiograph August 08, [address] performed earlier today. FINDINGS: Median sternotomy wires and mediastinal surgical clips are noted. Patient is rotated. There is no pneumothorax. Blunting of the left costophrenic angle is likely due to epicardial fat pad. Bib asilar opacities are greater on the left. No evidence for overt pulmonary edema. IMPRESSION: 1. Bibasilar opacities, greater on the left left. This finding may reflect aspiration pneumonitis giv en findings on chest CT. 2. Cardiomegaly. No evidence for pulmonary edema. ACT 112: Negative or not required by law. Electronically signed by: Lefty Garcia M.D. 08/09/2022 8:01 PM
[2022-08-09] MEDS ORDERED: LEVALBUTEROL 1.25MG/0.5ML NEB INH STA (20:13)
[2022-08-09] MEDS ORDERED: IPRATROPIUM BROMIDE NEB SOLN 0.02% 2.5 ML VIAL INH STA (20:13)
[2022-08-09] MEDS ORDERED: methylPREDNISolone 40 MG in SYRINGE 0 ML IV ONE (20:15)
[2022-08-09 20:20] LABS: Base Excess ABG 3.7 mEq/L (-9-1.8); HCO3 ABG 26 mmol/L (19-24); Oxygen Saturation ABG 98.9 % (90-95); PCO2 ABG 31 mmHg (35-46); PO2 ABG 92 mmHg (80-95)
[2022-08-09 20:21] LABS: Allen Test Pos (Pos)
[2022-08-09 20:30] LABS: pH ABG 7.53 (7.35-7.45)
[2022-08-09] MEDS: POTASSIUM CHLORIDE / WTR 10 MEQ/100 ML PLCT IV SCH ×4 (20:42→23:57)
[2022-08-09] MEDS: HEPARIN SODIUM/DEXTROSE 25,000 UNITS/500 ML BAG IV SCH (20:42)
[2022-08-09] MEDS: DOXYCYCLINE HYCLATE 100 MG CAP PO SCH (20:43)
[2022-08-10] MEDS: METOPROLOL TARTRATE 1 MG/ML VIAL IV SCH ×3 (00:07→12:41)
[2022-08-10] MEDS: NITROGLYCERIN 2% OINTMENT 30GM TUBE EXT SCH ×3 (00:09→12:41)
[2022-08-10] MEDS: TUBE FEEDING WATER FLUSH GT SCH ×5 (00:10→16:27)
[2022-08-10 03:10] LABS: Basophils # (auto) 0.05 K/uL (0-0.2); Basophils % (auto) 0.3 %; Hematocrit (blood only) 41.4 % (40.1-51.0); Hemoglobin 13.9 g/dl (14.0-18.0); Immature Granulocytes # (auto) 0.23 K/uL (0.00-0.02); Immature Granulocytes % (auto) 1.2 %; Lymphocytes # (auto) 1.19 K/uL (1.2-3.4); Lymphocytes % (auto) 6.2 %; Mean Corpuscular Hemoglobin 31.7 pg (25.0-34.0); Mean Corpuscular Hgb Conc 33.6 g/dL (32.0-36.0); Mean Corpuscular Volume 94.5 fL (80.0-100.0); Mean Platelet Volume 10.4 fL (9.4-12.4); Monocytes # (auto) 0.66 K/uL (0.24-0.82); Monocytes % (auto) 3.4 %; Neutrophils # (auto) 17.03 K/uL (1.4-6.5); Neutrophils % (auto) 88.9 %; Platelet Count 303 K/uL (130-400); RDW Coefficient of Variation 13.9 % (11.5-14.5); RDW Standard Deviation 47.9 fL (36.4-46.3); Red Blood Count 4.38 M/uL (4.63-6.08); White Blood Count 19.16 K/ul (4.8-10.8)
[2022-08-10 03:32] LABS: BUN Creatinine Ratio 38.1 (10-20); Creatinine Clr Calc Pharmacy 57.3 ml/min; Est GFR (African American) 75.4 ml/min; Magnesium 2.8 mg/dl (1.7-2.4)
--- NOTE | 2022-08-10 03:34 | Communication Note ---
Date of Service: August 09, 2022 Late entry Patient with worsening oxygenation as per RN. Lethargic as per RN. CXR 1. Bibasilar opacities, greater on the left left. This finding may reflect aspiration pneumonitis given findings on chest CT. 2. Cardiomegaly. No evidence for pulmonary edema Ap Worsening hypoxemic respiratory failure secondary to HCAP/likely aspiration pneumonia Supplemental O2 Baseline ABG Decadron, nebs 1 dose now Zosyn in place of ceftriaxone
[2022-08-10 03:37] LABS: Partial Thromboplastin Ratio 1.8
[2022-08-10] MEDS ORDERED: PIPERACILLIN/TAZOBACTAM 3.375 GM in DEXTROSE 5% 100 ML IV ONE (03:45)
[2022-08-10 03:56] LABS: Partial Thromboplastin Time 48.4 Seconds (21.0-31.0)
[2022-08-10] MEDS: SODIUM CHLOR 7% 4 ML NEB NEB SCH (07:24)
[2022-08-10] MEDS: FUROSEMIDE INJ 20 MG/2 ML VIAL IV SCH (08:57)
[2022-08-10] MEDS: ASPIRIN 300 MG SUPP PR SCH (08:57)
[2022-08-10] MEDS: lisinopril 5 MG TAB PO SCH (09:09)
[2022-08-10] MEDS: DOXYCYCLINE HYCLATE 100 MG CAP PO SCH (09:09)
[2022-08-10] MEDS ORDERED: PIPERACILLIN/TAZOBACTAM 3.375 GM in DEXTROSE 5% 100 ML IV SCH (10:00)
--- NOTE | 2022-08-10 11:00 | Pulmonology Progress Note ---
Date of Service August 10, 2022 Assessment & Plan (1) Aspiration into airway: (2) Acute respiratory failure with hypoxia: (3) Pleural effusion: (4) Acute pulmonary embolism: Plan Chest x-ray 08/07/2022: Portable film, right lower lobe infiltrate. Left costophrenic and cardiophrenic angles are clean, small right-sided pleural effusion. No clear lung infiltrate CT chest 08/09/2022 personally reviewed: No clear large pulmonary emboli, subsegmental upper lobe pulmonary emboli Minimal mucus plugging in the RBI with dependent atelectasis bilateral lower lobes No pleural effusion No significant mediastinal lymphadenopathy -- Acute respiratory failure with hypoxia Etiology is likely aspiration along with PE Patient has poor cough effort Continue with O2 supplementation to keep ox saturation between 90-92% Patient will benefit from BiPAP but it will be contraindicated given the patient is not able to take the mask off and is not able to clear his secretions Patient's VQ match is significant. Doppler negative for DVT, CTA shows subsegmental bilateral upper lobe pulmonary emboli --Right-sided pleural effusion Patient is also getting right-sided pleural effusion likely from EF 25 to 30% -- Subsegmental pulmonary emboli bilateral upper lobes We will start the patient on heparin drip Plan: Continue with CoughAssist and nebulized hypertonic saline Continue with heparin drip Follow-up bubble study Case was discussed with Dr. Stauffer Please note the above document was generated using voice recognition software. It may contain grammatical, syntax or spelling errors.Any formal questions or concerns about the content, text or information contained within the body of this dictation should be directly addressed to the provider for clarification. Admission and Anticipated Discharge Date Admission Date: August 04, 2022 Subjective Patient seen and examined at bedside. No acute distress, no adverse events overnight Patient was saturating 95 to 96% on 100% FiO2, 40 L high flow I went down to 80% he was still saturating 91-92% Denied any headache No chest pain, no shortness of breath Review of Systems Review of Systems: All systems reviewed & are unremarkable except as noted in Subjective Physical Exam Physical Exam: Constitutional: Not in any acute distress HEENT: EOMI, PERRLA Respiratory system: Decreased air entry bilaterally, more decreased on the right side, no wheeze, no rhonchi, positive crackles bilateral lower lobes CVS: S1-S2 positive, no murmurs or gallops Abdomen: Soft, nontender, nondistended, positive bowel sounds x4 Extremities: +2 pulses bilaterally radialis/ dorsalis pedis, no cyanosis, no edema Neuro: Awake alert, left lower extremity 2 out of 5, left upper extremity 3 out of 5, right upper and right lower extremity 5 out of 5, following simple commands Psych: Flat mood and affect G/U: Positive [place] Skin: no rashes, warm and dry Lymphatic: no cervical or axillary lymphadenopathy Results & Data Results & Data ([facility]) Vital Signs (Past 12 Hours) Vital Signs Temp Pulse Pulse Pulse Resp BP BP 08/10/22 07:30 08/10/22 07:30 54 L 08/10/22 07:26 80 20 08/10/22 07:15 36.7 C 60 24 148/77 H 08/10/22 05:02 82 109/66 08/10/22 03:38 37.1 C 73 26 H 131/67 08/10/22 03:07 64 28 H 08/10/22 01:50 82 08/09/22 23:23 08/09/22 23:59 36.8 C 82 28 H 139/81 08/10/22 00:07 82 139/81 Pulse Ox O2 Del Method O2 Flow Rate FiO2 08/10/22 07:30 High Flow Nasal Cannula 40 100 08/10/22 07:30 08/10/22 07:26 96 Oxymask, High Flow Nasal Cannula 40 100 08/10/22 07:15 100 Nasal Cannula, Oxymask 08/10/22 05:02 08/10/22 03:38 96 Oxymask, High Flow Nasal Cannula 40 100 08/10/22 03:07 97 High Flow Nasal Cannula 40 100 08/10/22 01:50 08/09/22 23:23 High Flow Nasal Cannula 40 100 08/09/22 23:59 96 Oxymask, High Flow Nasal Cannula 40 100 08/10/22 00:07 Laboratory Results 08/10/22 02:57 08/10/22 02:57 PG Care Time/CCT Total # of Minutes Spent Total Time Spent with Patient: Total time spent is greater than 50% in coordination of care (as documented) at patient's floor/unit and/or counseling patient: Coding Level of Care Code 56195 Subseq Hosp Care Lvl 2 Diagnoses Aspiration into airway T17.908A Acute respiratory failure with hypoxia J96.01 Pleural effusion J90 Acute pulmonary embolism I26.99
--- NOTE | 2022-08-10 12:14 | Cardiology Progress Note ---
Date of Service August 10, 2022 Assessment & Plan (1) Acute right MCA stroke: (2) Hypoxia: (3) Aspiration into airway: (4) Carotid stenosis, symptomatic, with infarction: (5) Left ventricular systolic dysfunction: (6) AAA (abdominal aortic aneurysm): (7) CAD (coronary artery disease) of bypass graft: Plan Discontinue IV metoprolol and furosemide. Restart oral metoprolol 25 mg twice daily and Zestril 5 mg daily. Dual antiplatelet therapy as per neurology. Supplement electrolytes as needed. Admission and Anticipated Discharge Date Admission Date: August 04, 2022 Subjective Patient seen examined the bedside. Arousable to verbal stimuli. Minimally cooperative today. Telemetry reveals sinus rhythm with PACs with heart rate ranging from 50-90s beats per minute. Now taking p.o. medications. Review of Systems Review of Systems: Unobtainable due to mental health condition Physical Exam Constitutional: + ill appearing; no acute distress Respiratory: no respiratory distress and no labored breathing Auscultation: + rhonchi (Bilateral, scattered); no crackles, no rales and no wheezes Cardiovascular: Rate/Rhythm: regular rate and regular rhythm Heart Sounds: normal S1 and normal S2; no murmur Vessels: radial pulses present; no JVD and no carotid bruit Gastrointestinal (Abdomen): Inspection/Auscultation: abdomen normal to inspection and normal bowel sounds; abdomen not distended Percussion/Palpation: abdomen soft; abdomen nontender, no guarding and abdomen not rigid Neurologic: Motor/Sensory: no tremor Results & Data ([facility]) Vital Signs (Past 12 Hours) Vital Signs Temp Pulse Pulse Pulse Resp BP BP 08/10/22 11:35 36.6 C 69 24 152/77 H 08/10/22 10:48 88 20 08/10/22 07:30 08/10/22 07:30 54 L 08/10/22 07:26 80 20 08/10/22 07:15 36.7 C 60 24 148/77 H 08/10/22 05:02 82 109/66 08/10/22 03:38 37.1 C 73 26 H 131/67 08/10/22 03:07 64 28 H 08/10/22 01:50 82 Pulse Ox O2 Del Method O2 Flow Rate FiO2 08/10/22 11:35 93 High Flow Nasal Cannula 40 08/10/22 10:48 90 High Flow Nasal Cannula 40 100 08/10/22 07:30 High Flow Nasal Cannula 40 100 08/10/22 07:30 08/10/22 07:26 96 Oxymask, High Flow Nasal Cannula 40 100 08/10/22 07:15 100 Nasal Cannula, Oxymask 08/10/22 05:02 08/10/22 03:38 96 Oxymask, High Flow Nasal Cannula 40 100 08/10/22 03:07 97 High Flow Nasal Cannula 40 100 08/10/22 01:50
[2022-08-10] MEDS: FIBERSOURCE HN 1.2 CAL 1000 ML BAG NG SCH (16:27)
[2022-08-10] MEDS ORDERED: HYOSCYAMINE SULFATE 0.125 MG TAB SL PRN (17:19)
[2022-08-10] MEDS ORDERED: LORazepam 0.5 MG TAB PO PRN (17:19)
[2022-08-10] MEDS ORDERED: ONDANSETRON 4 MG OD TAB SL PRN (17:19)
[2022-08-10] MEDS ORDERED: MoRPHine SULFATE 5 MG/0.25 ML UDP PO PRN (17:19)
[2022-08-10] MEDS ORDERED: MoRPHine SULFATE 2 MG/ML CARP IV PRN (17:19)
[2022-08-10] MEDS ORDERED: ACETAMINOPHEN 325 MG TAB PO PRN (17:19)
[2022-08-10] MEDS ORDERED: ONDANSETRON INJ 2 MG/ML 2 ML VIAL IV PRN (17:19)
--- NOTE | 2022-08-10 17:38 | Hospitalist Progress Note ---
Date of Service August 10, 2022 Assessment & Plan (1) Acute respiratory failure with hypoxia: Plan Patient was being managed for the following: 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 Aspiration pneumonia Acute respiratory failure with hypoxia, requiring high flow nasal cannula oxygen, BiPAP contraindicated due to inability to protect his secretion, DNR/DNI Hypertensive urgency Likely acute on chronic heart failure with reduced ejection fraction Recurrent falls Prior attending had been in touch with the family regarding patient's progress and poor outcome status, and family was inclined towards comfort care. Patient's Maricruz was updated 08/10, answered all her questions, met with patient's son and daughter at bedside along with Maricruz [see subjective]. Family decided to go with comfort care. Pt is comfort care status from evening of 08/10/22. Comfort care meds instituted. Admission and Anticipated Discharge Date Admission Date: August 04, 2022 Subjective Patient seen and examined at bedside as a follow-up of acute right MCA stroke, aspiration pneumonia, acute respiratory failure with hypoxia, hypertensive urgency, acute on chronic CHF and now comfort care status. Patient was lying in bed, on 40 L high flow oxygen at 100%, per RN patient desaturated overnight and needed OxiMax on top of high flow oxygen, BiPAP cannot be used as patient cannot protect his secretion, patient failed a speech eval today, patient declined tube feeding. Patient is very tired even with minimal cooperation during examination. ROS not able due to patient not being able to articulate his voice. Patient's Maricruz was updated over the phone regarding the current status of the patient, answered all question, she wanted to keep patient under comfort care. Explained what comfort care entails and also gave the option of hospice, asked her to visit hospital with family and meet with me so that we can again have discussion regarding these and make sure that each one of the family members understands. Again had meeting with Maricruz and her daughter and her son at bedside in the late afternoon, answered all the questions, family inclined towards comfort care, they verbalized understanding of what comfort care entails. Physical Exam Physical Exam: Lethargic, drowsy, on 40 L nasal cannula oxygen at 100%, oral mucosa moist, in mild distress. Appears ill/frail/weak. Heart: Normal rate, no murmur, S1, S2 Lungs: Crackles diffuse and bilateral, diminished breath sounds. Wheezes. Abdominal exam: Normal bowel sounds, not distended, nontender on exam. Neurological exam: Patient not able to cooperate, apparent weakness on the left extremity compared to right but cannot be quantified. Lower extremity with no pitting edema. Results & Data Results & Data ([facility]) Vital Signs (Past 12 Hours) Vital Signs Temp Pulse Pulse Pulse Resp BP Pulse Ox 08/10/22 16:03 76 08/10/22 15:45 36.4 C L 85 28 H 127/74 93 08/10/22 11:35 36.6 C 69 24 152/77 H 93 08/10/22 10:48 88 20 90 08/10/22 07:30 08/10/22 07:30 54 L 08/10/22 07:26 80 20 96 08/10/22 07:15 36.7 C 60 24 148/77 H 100 O2 Del Method O2 Flow Rate FiO2 08/10/22 16:03 08/10/22 15:45 High Flow Nasal Cannula 40 80 08/10/22 11:35 High Flow Nasal Cannula 40 08/10/22 10:48 High Flow Nasal Cannula 40 100 08/10/22 07:30 High Flow Nasal Cannula 40 100 08/10/22 07:30 08/10/22 07:26 Oxymask, High Flow Nasal Cannula 40 100 08/10/22 07:15 Nasal Cannula, Oxymask
[2022-08-10] MEDS: MoRPHine SULF/NSS 250 MG/250 ML BTL IV SCH (17:53)
[2022-08-10] MEDS: HEPARIN SODIUM/DEXTROSE 25,000 UNITS/500 ML BAG IV SCH (18:12)
[2022-08-11 03:21] LABS: Partial Thromboplastin Time 27.9 Seconds (21.0-31.0)
--- NOTE | 2022-08-11 14:13 | Palliative Care Consultation ---
Date of Consultation August 11, 2022 Assessment & Plan (1) Dyspnea: with hypoxic respiratory failure and aspiration pneumonia Continue O2 for comfort, continue morphine infusion (2) Terminal respiratory secretions: prn levsin (3) Palliative care encounter: I spoke with Mrs. Chin at bedside. She is tearful and understands that we are approaching his dying time. We discussed signs to watch for possible discomfort and encouraged her to ask if she has questions or concerns. Orders adjusted for comfort measures with removal of SCDs, telemetry and other treatment focused interventions. He has not needed any morphine bolus dosing through infusion and appears comfortable. Additional morphine orders discontinued. History of Present Illness Reason for Consultation: comfort care Requesting Physician: Dr. Stauffer Attending Physician: Dacia Stauffer MD History of Present Illness 72 yo gentleman with history of CAD who had been having falls and increased weakness when he presented to ER. He was admitted for workup of cardiac arrhythmia and hypertension. The day after admission, he was noted to have difficulty taking po medications, left neglect and left sided weakness. He was found to have right MCA infarct. CTA showed occlusion of right internal carotid and high grade stenosis of left posterior cerebral and right vertebral arteries. He subsequently had hypoxic respiratory failure with aspiration pneumonia and family decided to shift focus of care to comfort and symptom management. He was started on a morphine infusion which is currently running at 1mg/hr. He does not respond to voice or touch. Per RN, he tolerates routine care with no facial grimace or signs of discomfort. Allergies Allergy/AdvReac Type Severity Reaction Status Date / Time No Known Allergies Allergy Verified 08/04/22 15:02 Home Medications Medication Instructions Recorded Confirmed Type No Known Home Medications 08/04/22 08/04/22 History Patient History Medical History HTN (hypertension) No pertinent family history Surgical History No pertinent past surgical history Social History Smoking Status: Current every day smoker Tobacco Type: Cigarettes Cigarettes Per Day: 5; Tobacco Cessation Education Requested by Patient: No Hx Alcohol Use: No Hx Substance Use: Yes Last Used Substance: Days (ago) Preferred Language: Macanese Communication Ability: Effective Bilingual Call Center Representative Required: No Beliefs That Will Affect Care: None Current Living Situation: Spouse Other Information That Helps Us Care for You: No Feels Safe at Home: Yes Safety Concerns: Feels Safe At This Time Assistive Devices: Cane and Glasses Review of Systems Review of Systems: Unobtainable due to reduced consciousness Physical Exam Constitutional: no acute distress ENMT: Mouth: + dry oral mucous membranes Respiratory: audible tracheal secretions, no apnea noted Musculoskeletal: Extremities: + muscle atrophy Skin: warm and dry Neurologic: obtunded Results & Data ([facility] [place]) Vital Signs (Past 12 Hours) Vital Signs O2 Del Method O2 Flow Rate 08/11/22 07:32 Nasal Cannula 2 PG Care Time/CCT Total # of Minutes Spent Total Time Spent with Patient: Total time spent is greater than 50% in coordination of care (as documented) at patient's floor/unit and/or counseling patient: Coding Level of Care Code 97754 Initial Inpt Care Lvl 1 Diagnoses Dyspnea R06.00 Terminal respiratory secretions R09.89 Palliative care encounter Z51.5
[2022-08-11] MEDS: MoRPHine BOLUS from BAG IV PRN ×2 (14:57→19:20)
[2022-08-11] MEDS: LORazepam 0.5 MG in SYRINGE 0 ML IV PRN (15:07)
--- NOTE | 2022-08-11 15:35 | Hospitalist Progress Note ---
Date of Service August 11, 2022 Assessment & Plan (1) Acute respiratory failure with hypoxia: Plan Patient was being managed for the following: 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 Aspiration pneumonia Acute respiratory failure with hypoxia, requiring high flow nasal cannula oxygen, BiPAP contraindicated due to inability to protect his secretion, DNR/DNI Hypertensive urgency Likely acute on chronic heart failure with reduced ejection fraction Recurrent falls Prior attending had been in touch with the family regarding patient's progress and poor outcome status, and family was inclined towards comfort care. Patient's Maricruz was updated 08/10, answered all her questions, met with patient's son and daughter at bedside along with Maricruz [see subjective]. Family decided to go with comfort care. Pt is comfort care status from evening of 08/10/22. No lab draws. Comfort care meds instituted. Admission and Anticipated Discharge Date Admission Date: August 04, 2022 Subjective Patient seen and examined at bedside as a follow-up of acute right MCA stroke, aspiration pneumonia, acute respiratory failure with hypoxia, hypertensive urgency, acute on chronic CHF and now comfort care status since evening of 08/10. Patient lying in bed, appears comfortable, on 2 L nasal cannula oxygen, nodes "no" to any pain or discomfort. Not able to articulate. Physical Exam Physical Exam: Lethargic, drowsy, on 2L nasal cannula oxygen, oral mucosa dry, comfortable appearing. Appears ill/frail/weak. Heart: Normal rate, no murmur, S1, S2 Lungs: Crackles diffuse and bilateral, diminished breath sounds. Wheezes. Abdominal exam: Normal bowel sounds, not distended Neurological exam: Patient not able to cooperate. Lower extremity with no pitting edema. Results & Data Results & Data ([facility]) Vital Signs (Past 12 Hours) Vital Signs O2 Del Method O2 Flow Rate 08/11/22 07:32 Nasal Cannula 2
[2022-08-12] MEDS: LORazepam 0.5 MG in SYRINGE 0 ML IV PRN ×3 (07:38→17:21)
--- NOTE | 2022-08-12 11:57 | Palliative Care Progress Note ---
Date of Service August 12, 2022 Assessment & Plan (1) Dyspnea: Plan: with hypoxic respiratory failure and aspiration pneumonia On morphine infusion, now at 2mg/hr Appears comfortable (2) Terminal respiratory secretions: Plan: Not currently a problem. Continue prn levsin (3) Palliative care encounter: Plan: Focus of care is comfort and symptom management He is likely to within hours to a day or two Admission and Anticipated Discharge Date Admission Date: August 04, 2022 Subjective Deeply unresponsive. No facial grimace. No moaning. Review of Systems Review of Systems: Unobtainable due to reduced consciousness Physical Exam Constitutional: no acute distress ENMT: Mouth: + dry oral mucous membranes Respiratory: + tachypneic no audible tracheal secretions Cardiovascular: Rate/Rhythm: + tachycardic and + irregularly irregular Musculoskeletal: Extremities: + muscle atrophy Skin: warm to touch Neurologic: + obtunded Genitourinary: bae catheter, scant concentrated urine Results & Data ([facility]) Vital Signs (Past 12 Hours) Vital Signs Temp Pulse Resp BP Pulse Ox O2 Del Method O2 Flow Rate 08/12/22 07:43 Nasal Cannula 2 08/12/22 07:02 99.3 F 115 H 26 H 173/78 H 76 L Nasal Cannula 2 08/12/22 00:00 Nasal Cannula PG Care Time/CCT Total # of Minutes Spent Total Time Spent with Patient: Total time spent is greater than 50% in coordination of care (as documented) at patient's floor/unit and/or counseling patient: Coding Level of Care Code 45033 Subseq Hosp Care Lvl 2 Diagnoses Dyspnea R06.00 Terminal respiratory secretions R09.89 Palliative care encounter Z51.5
[2022-08-12] MEDS: MoRPHine BOLUS from BAG IV PRN (14:45)
--- NOTE | 2022-08-12 15:25 | Hospitalist Progress Note ---
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 Aspiration pneumonia Acute respiratory failure with hypoxia, requiring high flow nasal cannula oxygen, BiPAP contraindicated due to inability to protect his secretion, DNR/DNI Hypertensive urgency Likely acute on chronic heart failure with reduced ejection fraction Recurrent falls Prior attending had been in touch with the family regarding patient's progress and poor outcome status, and family was inclined towards comfort care. Patient's Maricruz was updated 08/10, answered all her questions, met with patient's son and daughter at bedside along with Maricruz [see subjective]. Family decided to go with comfort care. Pt is comfort care status from evening of 08/10/22. No lab draws. Comfort care meds instituted. Admission and Anticipated Discharge Date Admission Date: August 04, 2022 Subjective Patient seen and examined at bedside as a follow-up of acute right MCA stroke, aspiration pneumonia, acute respiratory failure with hypoxia, hypertensive urgency, acute on chronic CHF and now comfort care status since evening of 08/10. Patient lying in bed, appears comfortable, on 2 L nasal cannula oxygen, nods "no" to any pain or discomfort. Not able to articulate. Physical Exam Physical Exam: Lethargic, drowsy, on 2L nasal cannula oxygen, oral mucosa dry, comfortable appearing. Appears ill/frail/weak. Heart: Normal rate, no murmur, S1, S2 Lungs: Crackles diffuse and bilateral. Wheezes. Abdominal exam: Normal bowel sounds, not distended Neurological exam: Patient not able to cooperate. Lower extremity with no pitting edema. Results & Data Results & Data ([facility]) Vital Signs (Past 12 Hours) Vital Signs Temp Pulse Resp BP Pulse Ox O2 Del Method O2 Flow Rate 08/12/22 07:43 Nasal Cannula 2 08/12/22 07:02 37.4 C 115 H 26 H 173/78 H 76 L Nasal Cannula 2
[2022-08-12] MEDS: GLYCOPYRROLATE 0.2 MG/ML VIAL IV PRN (21:36)
--- NOTE | 2022-08-13 14:11 | Hospitalist Progress Note ---
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 Aspiration pneumonia Acute respiratory failure with hypoxia, requiring high flow nasal cannula oxygen, BiPAP contraindicated due to inability to protect his secretion, DNR/DNI Hypertensive urgency Likely acute on chronic heart failure with reduced ejection fraction Recurrent falls Pt is comfort care status from evening of 08/10/22. No lab draws. diet as tolerated. on Morphine drip. Comfort care meds instituted. Admission and Anticipated Discharge Date Admission Date: August 04, 2022 Subjective Patient seen and examined at bedside as a follow-up of acute right MCA stroke, aspiration pneumonia, acute respiratory failure with hypoxia, hypertensive urgency, acute on chronic CHF and now comfort care status since evening of 10/10. Patient lying in bed, appears comfortable, on 2 L nasal cannula oxygen, sleeping, not arousable. Physical Exam Physical Exam: Lethargic, drowsy, on 2L nasal cannula oxygen, oral mucosa dry, comfortable appearing. Appears ill/frail/weak. Heart: Normal rate, no murmur, S1, S2 Lungs: Crackles diffuse and bilateral. Wheezes. Abdominal exam: Normal bowel sounds, not distended Neurological exam: Patient not able to cooperate. UC w/ concentrated urine noted. Lower extremity with no pitting edema. Results & Data Results & Data ([facility]) Vital Signs (Past 12 Hours) Vital Signs Temp Pulse Resp BP Pulse Ox O2 Del Method O2 Flow Rate 08/13/22 10:27 Nasal Cannula 2 08/13/22 07:32 37.7 C H 110 H 12 132/77 86 L Nasal Cannula 2
[2022-08-13] MEDS: GLYCOPYRROLATE 0.2 MG/ML VIAL IV PRN (18:31)
[2022-08-14] MEDS: GLYCOPYRROLATE 0.2 MG/ML VIAL IV PRN ×2 (12:07→20:30)
--- NOTE | 2022-08-14 13:51 | Hospitalist Progress Note ---
Date of Service August 14, 2022 Assessment & Plan (1) Acute respiratory failure with hypoxia: Plan Patient was being managed for the following: 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 Aspiration pneumonia Acute respiratory failure with hypoxia, requiring high flow nasal cannula oxygen, BiPAP contraindicated due to inability to protect his secretion, DNR/DNI Hypertensive urgency Likely acute on chronic heart failure with reduced ejection fraction Recurrent falls Pt is comfort care status from evening of 08/10/22. No lab draws. diet as tolerated. on Morphine drip. Levsin and ativan on board. Comfort care meds instituted. Admission and Anticipated Discharge Date Admission Date: August 04, 2022 Subjective Patient seen and examined at bedside as a follow-up of acute right MCA stroke, aspiration pneumonia, acute respiratory failure with hypoxia, hypertensive urgency, acute on chronic CHF and now comfort care status since evening of 08/10. Patient lying in bed, appears comfortable, on 2 L nasal cannula oxygen, sleeping, not arousable. Physical Exam Physical Exam: Lethargic, drowsy, on 2L nasal cannula oxygen, oral mucosa dry, comfortable appearing. Appears ill/frail/weak. Heart: Normal rate, no murmur, S1, S2 Lungs: Crackles diffuse and bilateral. Wheezes. Slow deep breaths noted. Abdominal exam: Normal bowel sounds, not distended Neurological exam: Patient not able to cooperate. UC w/ concentrated urine noted. Lower extremity with no pitting edema. Results & Data Results & Data ([facility]) Vital Signs (Past 12 Hours) Vital Signs Temp Pulse Resp BP Pulse Ox O2 Del Method O2 Flow Rate 08/14/22 08:45 Nasal Cannula 2 08/14/22 07:13 37.9 C H 89 8 L 117/63 88 L Nasal Cannula 2 08/14/22 06:05 6 L
--- NOTE | 2022-08-15 13:44 | Palliative Care Progress Note ---
Date of Service August 15, 2022 Assessment & Plan (1) Dyspnea: Plan: with hypoxic respiratory failure and aspiration pneumonia after right MCA CVA Continue morphine infusion. (2) Terminal respiratory secretions: Plan: Continue glycopyrrolate as needed. Two doses yesterday. No audible tracheal secretions. (3) Palliative care encounter: Plan: Focus of care is comfort and symptom management. He appears comfortable. I spoke with Mrs. Chin on the phone. She is tearful. She tells me that she is coping as best she can. "I wanted to call in and check on him but I just can't." She has support from family and friends. Updated her on Attila's status and signs which indicate that he is likely to within the next day or two. Admission and Anticipated Discharge Date Admission Date: August 04, 2022 Subjective Appears comfortable. Apneic at times. Morphine infusion increased to 3mg/hr overnight. No prn dosing for several days. Review of Systems Review of Systems: Unobtainable due to reduced consciousness Physical Exam Constitutional: no acute distress ENMT: Mouth: + dry oral mucous membranes Respiratory: apnea, no audible tracheal secretions Cardiovascular: mild mottling on knees Gastrointestinal (Abdomen): soft Musculoskeletal: Extremities: + muscle atrophy Skin: warm to touch Neurologic: + obtunded Results & Data ([facility]) Vital Signs (Past 12 Hours) Vital Signs Temp Pulse Pulse Resp BP BP Pulse Ox 08/15/22 08:08 100.8 F H 110 H 8 L 115/71 90 08/15/22 07:44 08/15/22 07:38 100.8 F H 110 H 8 L 115/71 90 O2 Del Method O2 Flow Rate 08/15/22 08:08 Nasal Cannula 2 08/15/22 07:44 Nasal Cannula 2 08/15/22 07:38 Nasal Cannula 2 PG Care Time/CCT Total # of Minutes Spent Total Time Spent: 25 Total Time Spent with Patient: Total time spent is greater than 50% in coordination of care (as documented) at patient's floor/unit and/or counseling patient:symptom management, family update and support Coding Level of Care Code 77147 Subseq Hosp Care Lvl 2 Diagnoses Dyspnea R06.00 Terminal respiratory secretions R09.89 Palliative care encounter Z51.5
--- NOTE | 2022-08-15 15:28 | Hospitalist Progress Note ---
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 Aspiration pneumonia Acute respiratory failure with hypoxia, requiring high flow nasal cannula oxygen, BiPAP contraindicated due to inability to protect his secretion, DNR/DNI Hypertensive urgency Likely acute on chronic heart failure with reduced ejection fraction Recurrent falls Pt is comfort care status from evening of 08/10/22. No lab draws. diet as tolerated. on Morphine drip. Levsin and ativan on board. Comfort care meds instituted. Admission and Anticipated Discharge Date Admission Date: August 04, 2022 Subjective Patient seen and examined at bedside as a follow-up of acute right MCA stroke, aspiration pneumonia, acute respiratory failure with hypoxia, hypertensive urgency, acute on chronic CHF and now comfort care status since evening of 08/10. Patient lying in bed, appears comfortable, on 2 L nasal cannula oxygen, sleeping, not arousable. Apneic at times. Physical Exam Physical Exam: Lethargic, drowsy, on 2L nasal cannula oxygen, oral mucosa dry, comfortable appearing. Appears ill/frail/weak. Heart: Normal rate, no murmur, S1, S2 Lungs: Crackles diffuse and bilateral. Wheezes. Slow deep breaths noted. Abdominal exam: Normal bowel sounds, not distended Neurological exam: Patient not able to cooperate. UC w/ concentrated urine noted. Lower extremity with no pitting edema. Results & Data Results & Data ([facility]) Vital Signs (Past 12 Hours) Vital Signs Temp Pulse Pulse Resp BP BP Pulse Ox 08/15/22 08:08 38.2 C H 110 H 8 L 115/71 90 08/15/22 07:44 08/15/22 07:38 38.2 C H 110 H 8 L 115/71 90 O2 Del Method O2 Flow Rate 08/15/22 08:08 Nasal Cannula 2 08/15/22 07:44 Nasal Cannula 2 08/15/22 07:38 Nasal Cannula 2
[2022-08-15] MEDS: MoRPHine SULF/NSS 250 MG/250 ML BTL IV SCH (23:13)
[2022-08-16] MEDS: GLYCOPYRROLATE 0.2 MG/ML VIAL IV PRN (07:29)
--- NOTE | 2022-08-16 14:57 | Palliative Care Progress Note ---
Date of Service August 16, 2022 Assessment & Plan (1) Dyspnea: Plan: Controlled on morphine infusion. No signs of opioid toxicity. (2) Terminal respiratory secretions: Plan: Continue prn glycopyrrolate (3) Palliative care encounter: Plan: Spoke with son at bedside. Talked about what to expect. He remains likely to within the next day or two. Admission and Anticipated Discharge Date Admission Date: August 04, 2022 Subjective Deeply unresponsive. Remains on morphine infusion at 3mg/hr. Son at bedside. Review of Systems Review of Systems: Unobtainable due to reduced consciousness Physical Exam Constitutional: no acute distress ENMT: Mouth: + dry oral mucous membranes Respiratory: apnea, no audible tracheal secretions Cardiovascular: increased mottling of knees and feet Neurologic: no myoclonus Results & Data ([facility]) Vital Signs (Past 12 Hours) Vital Signs O2 Del Method O2 Flow Rate 08/16/22 07:32 Nasal Cannula 2 PG Care Time/CCT Total # of Minutes Spent Total Time Spent with Patient: Total time spent is greater than 50% in coordination of care (as documented) at patient's floor/unit and/or counseling patient: Coding Level of Care Code 69895 Subseq Hosp Care Lvl 1 Diagnoses Dyspnea R06.00 Terminal respiratory secretions R09.89 Palliative care encounter Z51.5
--- NOTE | 2022-08-16 16:34 | Hospitalist Progress Note ---
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 Aspiration pneumonia Acute respiratory failure with hypoxia, requiring high flow nasal cannula oxygen, BiPAP contraindicated due to inability to protect his secretion, DNR/DNI Hypertensive urgency Likely acute on chronic heart failure with reduced ejection fraction Recurrent falls Pt is comfort care status from evening of 08/10/22. No lab draws. diet as tolerated. on Morphine drip. Levsin and ativan on board. Comfort care meds instituted. Admission and Anticipated Discharge Date Admission Date: August 04, 2022 Subjective Patient seen and examined at bedside as a follow-up of acute right MCA stroke, aspiration pneumonia, acute respiratory failure with hypoxia, hypertensive urgency, acute on chronic CHF and now comfort care status since evening of 08/10. Patient lying in bed, appears comfortable, on 2 L nasal cannula oxygen, sleeping, not arousable. Apneic at times. Physical Exam Physical Exam: Lethargic, drowsy, on 2L nasal cannula oxygen, oral mucosa dry, comfortable appearing. Appears ill/frail/weak. Heart: no murmur, S1, S2 Lungs: Crackles diffuse and bilateral. Wheezes. Slow deep breaths noted. Abdominal exam: not distended Neurological exam: Patient not able to cooperate. UC w/ concentrated urine noted. Lower extremity with no pitting edema. Results & Data Results & Data ([facility]) Vital Signs (Past 12 Hours) Vital Signs O2 Del Method O2 Flow Rate 08/16/22 07:32 Nasal Cannula 2
[2022-08-17] MEDS: GLYCOPYRROLATE 0.2 MG/ML VIAL IV PRN (05:29)
--- NOTE | 2022-08-17 15:02 | Hospitalist Progress Note ---
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 Aspiration pneumonia Acute respiratory failure with hypoxia, requiring high flow nasal cannula oxygen, BiPAP contraindicated due to inability to protect his secretion, DNR/DNI Hypertensive urgency Likely acute on chronic heart failure with reduced ejection fraction Recurrent falls Pt is comfort care status from evening of 08/10/22. No lab draws. diet as tolerated. on Morphine drip. Levsin and ativan on board. Comfort care meds instituted. Admission and Anticipated Discharge Date Admission Date: August 04, 2022 Subjective Patient seen and examined at bedside as a follow-up of acute right MCA stroke, aspiration pneumonia, acute respiratory failure with hypoxia, hypertensive urgency, acute on chronic CHF and now comfort care status since evening of 08/10. Patient lying in bed, appears comfortable, on 2 L nasal cannula oxygen, sleeping, not arousable. Apneic at times. Physical Exam Physical Exam: Lethargic, drowsy, on 2L nasal cannula oxygen, oral mucosa dry, comfortable appearing. Appears ill/frail/weak. Heart: no murmur, S1, S2 Lungs: Crackles diffuse and bilateral. Wheezes. Slow deep breaths noted. Abdominal exam: not distended Neurological exam: Patient not able to cooperate. UC w/ concentrated urine noted. Lower extremity with no pitting edema.
--- NOTE | 2022-08-18 12:01 | Discharge Summary ---
Date of Service August 18, 2022 Admission HPI Per Admitting Provider He is a 72-year-old male with significant past medical history of CAD status post CABG years before and also hypertension has not been to a doctor for the last 4 years. Apparently has been complaining of progressive weakness for a while and the weakness seems to be worse since Monday last. He has had falls x2 at home due to weakness but denies any pain, numbness or tingling involving any of the extremities, any weakness involving any side of the body or any recent fever and or chills. He did complain to have some shortness of breath on exertion without any cough and/or phlegm. Denies any palpitation or chest pain. Did not have any swelling of the legs but has been having occasional incontinence of urine. The family members noted to have possible confusion as well. In the ER he was noted to have very high blood pressure with systolic more than 200 with increased heart rate more than 110 and in atrial fibrillation. Chest x-ray is compatible with mild congestion but no source of infection. He was admitted to telemetry unit for continuation of care. Admission Exam Per Admitting Provider Physical Exam: Lying in bed with minimal shortness of breath Constitutional: + ill appearing and average body habitus Eyes: PERRL, conjunctivae normal, anicteric sclerae ENMT: external ear and nose normal, oropharynx normal Neck: trachea midline, no thyromegaly Respiratory: + respiratory distress (Minimal to mild shortness of breath at rest) Auscultation: + diminished lung sounds and + crackles (Coarse crackles bilaterally mostly on the right side) Cardiovascular: Rate/Rhythm: + tachycardic and + irregularly irregular Heart Sounds: normal S1, normal S2 and + murmur (2/6 over precordium) Extremities: no edema Gastrointestinal (Abdomen): Inspection/Auscultation: normal bowel sounds; abdomen not distended Percussion/Palpation: abdomen soft; abdomen nontender Musculoskeletal: No acute arthritis in any joint Neurologic: Alert, awake and oriented x3. Generally weak but no focal sensory or motor deficit appreciated Lymphatic: no cervical or axillary lymphadenopathy Principal Diagnosis 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 Aspiration pneumonia Acute respiratory failure with hypoxia, requiring high flow nasal cannula oxygen, BiPAP contraindicated due to inability to protect his secretion, DNR/DNI Hypertensive urgency Likely acute on chronic heart failure with reduced ejection fraction Recurrent falls Discharge Exam Pt was not seen at the time of by undersigned. Discharge Data Allergies Allergy/AdvReac Type Severity Reaction Status Date / Time No Known Allergies Allergy Verified 08/04/22 15:02 Consultations 08/04/22 15:10 ED Decision to Admit Stat 08/04/22 16:18 Consult Cardiology Routine 08/05/22 23:45 Consult Neurology Routine 08/08/22 11:40 Consult Pulmonology Routine 08/10/22 17:20 Consult Palliative Care Routine Ordered Studies 08/04/22 13:15 CT abd pelvis IV con only Stat 08/04/22 13:16 CT cervical spine wo con Stat CT head/brain wo con Stat 08/05/22 21:21 CT head/brain wo con Stat 08/05/22 22:23 CTA head w con [CT angio head w con] Stat CTA neck with con [CT angio neck with con] Stat 08/06/22 09:00 MRI Brain [MR brain wo/w con] Routine 08/06/22 13:00 CT head/brain wo con Routine 08/09/22 US venous doppler LE BI Routine 08/09/22 10:51 CT angio chest PE protocol Urgent Hospital Course (1) Acute respiratory failure with hypoxia: Plan Patient was being managed for the following: 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 Aspiration pneumonia Acute respiratory failure with hypoxia, requiring high flow nasal cannula oxygen, BiPAP contraindicated due to inability to protect his secretion, DNR/DNI Hypertensive urgency Likely acute on chronic heart failure with reduced ejection fraction Recurrent falls Pt is comfort care status. Patient on 08/17/2022 at 2330 hours likely secondary to aspiration pneumonia on the background of large acute to sub acute Right MCA stroke. Home Health Attestation I certify that this patient is under my care and that I, or a physicians assistant facility manager working with me, had a face to-face encounter that meets the home health [id number] encounter requirements with this patient. The encounter with the patient was in whole, or in part, for the following medical condition, which is the primary reason for home health care (list medical condition): I certify that, based on my findings, the following services are medically necessary home health services: My clinical findings support the need for the above services because: Further, I certify that my clinical findings support that this patient is homebound (i.e. absences from home require considerable and taxing effort and are for medical reasons or anglican services or infrequently or of short durat ion when for other reasons) because: Certification for Home Health Services: Based on the above findings, I certify that this patient is confined to the home and needs intermittent snf care, physical therapy and/or speech therapy or continues to need occupational therapy. The patient is under my care, and I have initiated the establishment of the plan of care. This patient will be followed by a physician who will periodically review the plan of care. Total Time Total Time Spent Total Time Spent (In Minutes): 25 Discharge Plan Discharge Items Patient Disposition: Other Date/Time: 08/17/22 23:30
== END 2022-08-17 23:30 | disposition expired | DRG 304 ==
LOC: ED 13:01 → 2S 15:53 → SUATTDRO 15:53 → 2S 17:04 → 3E 08-12 01:28